=== PATIENT | male | born 1960 | race Caucasian/White ===

== ENCOUNTER 2024-03-19 17:03 | Inpatient (IN) | payer SELFPAY ==
[2024-03-19] VITALS (46 sets, daily range): BP systolic 129–214; BP diastolic 79–122; PULSE 71–95; RESP 16–33; TEMP 36.4–36.8; O2SAT 84–99; BMI 25.4
--- NOTE | 2024-03-19 17:05 | ED_ITS ---
Documented by User: Huber Villareal DO 03/20/24 05:51 HPI - Neuro Symptoms/Deficit 2 General: Chief Complaint: Weakness Stated Complaint: RIGHT SIDED WEAKNESS Time Seen by Provider: 03/19/24 17:04 Source: patient Mode of arrival: EMS History of Present Illness: 63-year-old male presents emergency room via EMS. Right-sided weakness that began suddenly while he was at work. This happened around 2:00 he went home after that called his sister who is a nurse and discussed that she encouraged him to call EMS eventually called EMS and then was brought here from [place]. At the time he arrives initial blood pressure is elevated his initial NIH is 6. He is not on any anticoagulants. Stroke alert was called shortly after he arrived. Patient is a lifelong smoker. Onset (ago): hour(s) Time: 17:03 Last Observed Normal: 14:00 Location: right arm, right leg and ataxia History of same: No Severity: mild Quality: weak, numb and tingling Relieving factors: none Exacerbating factors: none Context: sudden onset On Anticoagulants: No Associated symptoms: Deny chest pain, cough, diaphoresis, fevers/chills, headache(s), anorexia, malaise, nausea, seizures, short of breath, syncope, tingling, vertigo, vomiting or weakness Treatments Prior to Arrival: none Review of Systems 2 Const: Denies: fever(s), chills, malaise or diaphoresis Card: Denies: chest pain or syncope Resp: Denies: dyspnea GI: Denies: nausea or vomiting Skin/Breast: Denies: rash Neuro: Denies: headache(s) or vertigo PFS ED 2 PFSH: Medical History (Updated 03/19/24 @ 18:42 by Evan Batres MD) Hypertension Social History (Updated 03/19/24 @ 18:00 by Huber Villareal DO) Smoking and tobacco/nicotine status: current every day tobacco/nicotine user NIH stroke score 2 NIHSS: Level Of Consciousness - 1a: 0 Level Of Consciousness Questions - 1b: Both Correct Level Of Consciousness Commands - 1c: Both Correct Best Gaze - 2: Normal Visual Thompson - 3: No Visual Loss Facial Palsy - 4: N ormal Motor Arm Right - 5: Drift Motor Arm Left - 5: No Drift Motor Leg Right - 6: Effort Against Ethel Motor Leg Left - 6: No Drift Limb Ataxia - 7: Present In Two Limbs Sensory - 8: Mild To Moderate Loss Best Language - 9: No Aphasia Dysarthia - 10: Normal Extinction And Inattention - 11: 0 Score: Total Score: 6 Physical Exam 2 Const: GENERAL APPEARANCE: cooperative and comfortable O RIENTATION/CONSCIOUSNESS: Yes awake, Yes oriented to person, Yes oriented to place and Yes oriented to time HENMT: COMMON NORMALS: normocephalic, atraumatic and hearing grossly normal bilaterally HEAD & SCALP: normocephalic and atraumatic Resp: COMMON NORMALS: normal respiratory effort, No retractions, No use of accessory muscles and clear to auscultation bilaterally AUSCULTATION: clear to auscultation bilaterally Cardio: COMMON NORMALS: regular rate, regular rhythm and No murmurs present (Cardio) RATE: regular rate RHYTHM: regular rhythm GI: COMMON NORMALS: Soft to palpation and No hepatosplenomegaly present A USCULTATION: Yes normoactive bowel sounds PALPATION: Yes Soft to palpation, No Tenderness to palpation present (GI), No Guarding due to palpation present (GI) and Yes No hepatosplenomegaly present Extremity: COMMON NORMALS: normal to inspection, capillary refill normal, no clubbing, cyanosis or edema, no calf tenderness and no pedal edema Neuro: SENSORIUM/ORIENTATION: Yes oriented to person, Yes oriented to place and Yes oriented to time Skin: COMMON NORMALS: no rashes or lesions noted GENERAL SKIN EXAM: no rashes or lesions noted Course 2 Vital Signs: Vital signs: Vital Signs Temperature 97.6 F 03/20/24 02:50 Pulse Rate 78 03/20/24 04:00 Respiratory Rate 17 03/19/24 22:30 Blood Pressure 144/77 03/20/24 04:00 Pulse Oximetry 94 03/20/24 04:00 Oxygen Delivery Me thod Nasal Cannula 03/20/24 04:00 Oxygen Flow Rate 2 03/20/24 04:00 MDM - Neuro Symptoms/Deficit Medical Decision Making Initial blood pressure elevated blood pressure was 181/86 over upper 90s at the time we gave TNKase. He has an NIH of 6 on arrival. Discussed with Dr. Mansfield via phone CT is read as negative patient does wish to proceed. CTA of the head/neck is pending. Blood pressure increased and was given a single dose of labetalol, at the time given his blood pressure systolic was greater than 105. Care signed out to Dr. Batres at change of shift. See final notes for diagnosis and disposition. Patient presented for strokelike symptoms signed out to me to follow CTA did have some hypertension did treated with labetalol his blood pressure is now 169/95 had some slight improvement in his leg weakness did discuss CT with a neurologist Dr. Mansfield I spoke to the hospitalist and will admit to the ICU here. Medical Records I reviewed the patient's medical records. Lab Data I reviewed the patient's lab results. 03/19/24 17:31 03/19/24 17:[address] 03/19/24 17:11 IMPRESSION: No acute intracranial abnormality. ASSESSMENT: ASPECTS ([place] Stroke Program Early CT Score) is 10. Head/Neck CTA 03/19/24 17:27 IMPRESSION: No acute large vessel occlusion identified. IMPRESSION: 1. No vascular occlusion in the neck. The right vertebral artery has severe stenosis proximally. There is 50% stenosis also seen in the proximal left common carotid artery. 2. There is an 8 mm solid nodule present in the left upper lobe. For patients at low risk (minimal or absent history of smoking and of other known risk factors), recommend CT Chest at 6-12 months, then consider CT Chest at 18-24 months. For patients at high risk (history of smoking or of other known risk factors), recommend CT Chest at 6-12 months, then CT Chest at 18-24 months. (Reference: Sofi) REFERENCES: 1. Sofi Montemayor, et al. Guidelines for Management of Incidental Pulmonary Nodules Detected on CT Images: From the Fleischner Society 2017. Radiology. 2017;284(1):228-243. 2. NASCET CRITERIA. The degree of stenosis in the cervical segment of the internal carotid artery is based on NASCET criteria. Normal is no stenosis. Mild is less than 50% stenosis. Moderate is 50-69% stenosis. Severe is 70% to 99% stenosis. Total occlusion is no detectable patent lumen. Laboratory Results WBC 10.40 10^3/uL (3.29-11.43) 03/19/24 17:31 RBC 5.19 10^6/uL (3.85-5.65) 03/19/24 17:31 Hgb 17.10 g/dL (11.27-16.99) H 03/19/24 17:31 Hct 50.4 % (37-53) 03/19/24 17:31 MCV 97.1 fl (82-101) 03/19/24 17:31 MCH 32.9 pg (27-33) 03/19/24 17:31 MCHC 33.9 g/dL (30-55) 03/19/24 17:31 RDW 13.2 % (12.1-15.1) 03/19/24 17:31 Plt Count 202 10^3/cmm (157-399) 03/19/24 17:31 MPV 10.7 fL (7.4-10.4) H 03/19/24 17:31 Neut % (Auto) 55.6 % 03/19/24 17:31 Lymph % (Auto) 29.7 % 03/19/24 17:31 Teller % (Auto) 10.9 % 03/19/24 17:31 Eos % (Auto) 2.5 % 03/19/24 17:31 Baso % (Auto) 0.7 % 03/19/24 17:31 Neut # (Auto) 5.79 10^3/uL (1.8-7.7) 03/19/24 17:31 Lymph # (Auto) 3.1 10^3/uL (0.8-4.8) 03/19/24 17:31 Teller # (Auto) 1.1 10^3/uL (0.2-0.9) H 03/19/24 17:31 Eos # (Auto) 0.3 10^3/uL (0.0-0.8) 03/19/24 17:31 Baso # (Auto) 0.1 10^3/uL (0.0-0.1) 03/19/24 17:31 Nucleated RBC % (auto) 0 % 03/19/24 17:31 Nucleated RBCs # 0.0 /100WBC 03/19/24 17:31 PT 12.50 SECONDS (12.1-14.9) 03/19/24 17:31 INR 0.91 (0.8-1.2) 03/19/24 17:31 APTT 25.1 SECONDS (23.9-36.7) 03/19/24 17:31 Sodium 136 mmol/L (136-145) 03/19/24 17:56 Potassium 3.7 mmol/L (3.5-5.1) 03/19/24 17:56 Chloride 102 mmol/L (98-107) 03/19/24 17:56 Carbon Dioxide 26 mmol/L (22-29) 03/19/24 17:56 Anion Gap 11.7 (5-19) 03/19/24 17:56 BUN 15 mg/dL (8-23) 03/19/24 17:56 Creatinine 0.5 mg/dL (0.7-1.2) L 03/19/24 17:56 GFR Calculation 167.4 mL/min (90-130) H 03/19/24 17:56 Glucose 161 mg/dL (65-115) H 03/19/24 17:56 POC Glucose 162 mg/dL (70-110) H 03/19/24 17:13 Calculated Osmolality 286 mOsm/kg (285-295) 03/19/24 17:56 Calcium 8.5 mg/dL (8.5-10.5) 03/19/24 17:56 Total Bilirubin 0.5 mg/dL (0.15-1.2) 03/19/24 17:56 AST 12 U/L (0-40) 03/19/24 17:56 ALT 16 U/L (0-41) 03/19/24 17:56 Alkaline Phosphatase 85 U/L (40-130) 03/19/24 17:56 Total Protein 6.7 g/dL (6.6-8.7) 03/19/24 17:56 Albumin 3.8 g/dL (3.5-5.2) 03/19/24 17:56 Globulin 2.9 g/dL (1.3-4.6) 03/19/24 17:56 Procalcitonin 0.05 ng/mL (0-0.5) 03/19/24 17:56 TSH 1.83 uIU/mL (0.27-4.20) 03/19/24 17:56 Urine Color Yellow (Yellow) 03/19/24 18:20 Urine Appearance Clear (CLEAR) 03/19/24 18:20 Urine pH 5 (5-7) 03/19/24 18:20 Ur Specific Ethel 1.015 (1.005-1.030) 03/19/24 18:20 Urine Protein 1+ (Negative) H 03/19/24 18:20 Urine Glucose (UA) 4+ (Normal) H 03/19/24 18:20 Urine Ketones Negative (Negative) 03/19/24 18:20 Urine Blood Neg (Negative) 03/19/24 18:20 Urine Nitrate Positive (Negative) A 03/19/24 18:20 Urine Bilirubin Neg (Negative) 03/19/24 18:20 Urine Urobilinogen Neg mg/dL (Negative) 03/19/24 18:20 Ur Leukocyte Esterase Negative (Negative) 03/19/24 18:20 Urine RBC 0-4 /hpf (0-2) H 03/19/24 18:20 Urine WBC 5-10 /hpf (0-5) H 03/19/24 18:20 Ur Squamous Epith Cells 0-4 /hpf (0-5) H 03/19/24 18:20 Amorphous Sediment Trace /hpf 03/19/24 18:20 Urine Bacteria 1+ /hpf (NONE) H 03/19/24 18:20 Hyaline Casts 0-4 /lpf H 03/19/24 18:20 Urine Mucus Trace /hpf 03/19/24 18:20 Urine Opiates Screen Negative ng/mL (Negative) 03/19/24 18:20 Ur Barbiturates Screen Negative ng/mL (Negative) 03/19/24 18:20 Ur Phencyclidine Scrn Negative ng/mL (Negative) 03/19/24 18:20 Ur Amphetamines Screen Negative ng/mL (Negative) 03/19/24 18:20 U Benzodiazepines Scrn Negative ng/mL (Negative) 03/19/24 18:20 Urine Cocaine Screen Negative ng/mL (Negative) 03/19/24 18:20 U Marijuana (THC) Screen Negative ng/mL (Negative) 03/19/24 18:20 Discharge Plan Discharge Patient Disposition: Admitted As Inpatient Admit Provider: Gurinder Ash Clinical Impression: Acute CVA (cerebrovascular accident) Condition: Stable Coding Level of Care Code ED Lawn Sprinkler Servicer for Chg Fwd Documented by User: Evan Batres MD 03/19/24 18:42 HPI - Neuro Symptoms/Deficit 2 General: Chief Complaint: Weakness Stated Complaint: RIGHT SIDED WEAKNESS Time Seen by Provider: 03/19/24 17:04 PFSH ED 2 PFSH: Medical History (Updated 03/19/24 @ 18:42 by Evan Batres MD) Hypertension Social History (Updated 03/19/24 @ 18:00 by Huber Villareal DO) Smoking and tobacco/nicotine status: current every day tobacco/nicotine user NIH stroke score 2 Score: Total Score: 6 Course 2 Vital Signs: Vital signs: Vital Signs Temperature 97.6 F 03/20/24 02:50 Pulse Rate 78 03/20/24 04:00 Respiratory Rate 17 03/19/24 22:30 Blood Pressure 144/77 03/20/24 04:00 Pulse Oximetry 94 03/20/24 04:00 Oxygen Delivery Me thod Nasal Cannula 03/20/24 04:00 Oxygen Flow Rate 2 03/20/24 04:00 MDM - Neuro Symptoms/Deficit Medical Decision Making Initial blood pressure elevated blood pressure was 18 186 over upper 90s at the time we gave TNKase. He has an NIH of 6 on arrival. Discussed with Dr. Mansfield via phone CT is read as negative patient does wish to proceed. CTA of the head/neck is pending. Care signed out to Dr. Batres at change of shift. See final notes for diagnosis and disposition. Patient presented for strokelike symptoms signed out to me to follow CTA did have some hypertension did treated with labetalol his blood pressure is now 169/95 had some slight improvement in his leg weakness did discuss CT with a neurologist Dr. Mansfield I spoke to the hospitalist and will admit to the ICU here. Lab Data 03/19/24 17:31 03/19/24 17:[address] 03/19/24 17:11 IMPRESSION: No acute intracranial abnormality. ASSESSMENT: ASPECTS ([place] Stroke Program Early CT Score) is 10. Head/Neck CTA 03/19/24 17:27 IMPRESSION: No acute large vessel occlusion identified. IMPRESSION: 1. No vascular occlusion in the neck. The right vertebral artery has severe stenosis proximally. There is 50% stenosis also seen in the proximal left common carotid artery. 2. There is an 8 mm solid nodule present in the left upper lobe. For patients at low risk (minimal or absent history of smoking and of other known risk factors), recommend CT Chest at 6-12 months, then consider CT Chest at 18-24 months. For patients at high risk (history of smoking or of other known risk factors), recommend CT Chest at 6-12 months, then CT Chest at 18-24 months. (Reference: Sofi) REFERENCES: 1. Sofi Montemayor, et al. Guidelines for Management of Incidental Pulmonary Nodules Detected on CT Images: From the Fleischner Society 2017. Radiology. 2017;284(1):228-243. 2. NASCET CRITERIA. The degree of stenosis in the cervical segment of the internal carotid artery is based on NASCET criteria. Normal is no stenosis. Mild is less than 50% stenosis. Moderate is 50-69% stenosis. Severe is 70% to 99% stenosis. Total occlusion is no detectable patent lumen. Laboratory Results WBC 10.40 10^3/uL (3.29-11.43) 03/19/24 17:31 RBC 5.19 10^6/uL (3.85-5.65) 03/19/24 17:31 Hgb 17.10 g/dL (11.27-16.99) H 03/19/24 17:31 Hct 50.4 % (37-53) 03/19/24 17:31 MCV 97.1 fl (82-101) 03/19/24 17:31 MCH 32.9 pg (27-33) 03/19/24 17:31 MCHC 33.9 g/dL (30-55) 03/19/24 17:31 RDW 13.2 % (12.1-15.1) 03/19/24 17:31 Plt Count 202 10^3/cmm (157-399) 03/19/24 17:31 MPV 10.7 fL (7.4-10.4) H 03/19/24 17:31 Neut % (Auto) 55.6 % 03/19/24 17:31 Lymph % (Auto) 29.7 % 03/19/24 17:31 Teller % (Auto) 10.9 % 03/19/24 17:31 Eos % (Auto) 2.5 % 03/19/24 17:31 Baso % (Auto) 0.7 % 03/19/24 17:31 Neut # (Auto) 5.79 10^3/uL (1.8-7.7) 03/19/24 17:31 Lymph # (Auto) 3.1 10^3/uL (0.8-4.8) 03/19/24 17:31 Teller # (Auto) 1.1 10^3/uL (0.2-0.9) H 03/19/24 17:31 Eos # (Auto) 0.3 10^3/uL (0.0-0.8) 03/19/24 17:31 Baso # (Auto) 0.1 10^3/uL (0.0-0.1) 03/19/24 17:31 Nucleated RBC % (auto) 0 % 03/19/24 17:31 Nucleated RBCs # 0.0 /100WBC 03/19/24 17:31 PT 12.50 SECONDS (12.1-14.9) 03/19/24 17:31 INR 0.91 (0.8-1.2) 03/19/24 17:31 APTT 25.1 SECONDS (23.9-36.7) 03/19/24 17:31 Sodium 136 mmol/L (136-145) 03/19/24 17:56 Potassium 3.7 mmol/L (3.5-5.1) 03/19/24 17:56 Chloride 102 mmol/L (98-107) 03/19/24 17:56 Carbon Dioxide 26 mmol/L (22-29) 03/19/24 17:56 Anion Gap 11.7 (5-19) 03/19/24 17:56 BUN 15 mg/dL (8-23) 03/19/24 17:56 Creatinine 0.5 mg/dL (0.7-1.2) L 03/19/24 17:56 GFR Calculation 167.4 mL/min (90-130) H 03/19/24 17:56 Glucose 161 mg/dL (65-115) H 03/19/24 17:56 POC Glucose 162 mg/dL (70-110) H 03/19/24 17:13 Calculated Osmolality 286 mOsm/kg (285-295) 03/19/24 17:56 Calcium 8.5 mg/dL (8.5-10.5) 03/19/24 17:56 Total Bilirubin 0.5 mg/dL (0.15-1.2) 03/19/24 17:56 AST 12 U/L (0-40) 03/19/24 17:56 ALT 16 U/L (0-41) 03/19/24 17:56 Alkaline Phosphatase 85 U/L (40-130) 03/19/24 17:56 Total Protein 6.7 g/dL (6.6-8.7) 03/19/24 17:56 Albumin 3.8 g/dL (3.5-5.2) 03/19/24 17:56 Globulin 2.9 g/dL (1.3-4.6) 03/19/24 17:56 Procalcitonin 0.05 ng/mL (0-0.5) 03/19/24 17:56 TSH 1.83 uIU/mL (0.27-4.20) 03/19/24 17:56 Urine Color Yellow (Yellow) 03/19/24 18:20 Urine Appearance Clear (CLEAR) 03/19/24 18:20 Urine pH 5 (5-7) 03/19/24 18:20 Ur Specific Ethel 1.015 (1.005-1.030) 03/19/24 18:20 Urine Protein 1+ (Negative) H 03/19/24 18:20 Urine Glucose (UA) 4+ (Normal) H 03/19/24 18:20 Urine Ketones Negative (Negative) 03/19/24 18:20 Urine Blood Neg (Negative) 03/19/24 18:20 Urine Nitrate Positive (Negative) A 03/19/24 18:20 Urine Bilirubin Neg (Negative) 03/19/24 18:20 Urine Urobilinogen Neg mg/dL (Negative) 03/19/24 18:20 Ur Leukocyte Esterase Negative (Negative) 03/19/24 18:20 Urine RBC 0-4 /hpf (0-2) H 03/19/24 18:20 Urine WBC 5-10 /hpf (0-5) H 03/19/24 18:20 Ur Squamous Epith Cells 0-4 /hpf (0-5) H 03/19/24 18:20 Amorphous Sediment Trace /hpf 03/19/24 18:20 Urine Bacteria 1+ /hpf (NONE) H 03/19/24 18:20 Hyaline Casts 0-4 /lpf H 03/19/24 18:20 Urine Mucus Trace /hpf 03/19/24 18:20 Urine Opiates Screen Negative ng/mL (Negative) 03/19/24 18:20 Ur Barbiturates Screen Negative ng/mL (Negative) 03/19/24 18:20 Ur Phencyclidine Scrn Negative ng/mL (Negative) 03/19/24 18:20 Ur Amphetamines Screen Negative ng/mL (Negative) 03/19/24 18:20 U Benzodiazepines Scrn Negative ng/mL (Negative) 03/19/24 18:20 Urine Cocaine Screen Negative ng/mL (Negative) 03/19/24 18:20 U Marijuana (THC) Screen Negative ng/mL (Negative) 03/19/24 18:20 All radiology interpretation(s) finalized by discharge Discharge Plan Discharge Patient Disposition: Admitted As Inpatient Admit Provider: Gurinder Ash Clinical Impression: Acute CVA (cerebrovascular accident) Condition: Stable Coding Level of Care Code ED La[employer] Sprink[employer] Servicer for Yoseph Mckeon
--- NOTE | 2024-03-19 17:11 | CTR_ITS ---
PROCEDURE INFORMATION: Exam: CT Head Without Contrast Exam date and time: 03/19/2024 5:10 PM Age: 63 years old Clinical indication: Stroke-like symptoms; Other: RT sided weakness ; Additional info: Symptoms of acute stroke TECHNIQUE: Imaging protocol: Computed tomography of the head without contrast. Radiation optimization: All CT scans at this facility use at least one of these dose optimization techniques: automated exposure control; mA and/or kV adjustment per patient size (includes targeted exams where dose is matched to clinical indication); or iterative reconstruction. Other technique: STROKE PROTOCOL was implemented. COMPARISON: No relevant prior studies available. RADIATION DOSE METRICS: Total DLP (mGy-cm): 1120.08 FINDINGS: Brain: No acute infarct. No hemorrhage. Unremarkable white matter for age. No midline shift. 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 Additional probable chronic lacunar type infarct also noted in the right frontal tovar radiata. Cerebral ventricles: No ventriculomegaly. Paranasal sinuses: No significant inflammation. No fluid levels. Mastoid air cells: No significant inflammation. Bones: No acute fracture. Soft tissues: Unremarkable. CT/CT head thrombolytic [id number] IMPRESSION: No acute intracranial abnormality. ASSESSMENT: ASPECTS ([place] Stroke Program Early CT Score) is 10.
[2024-03-19 17:17] LABS: Glucose Point of Care 162 mg/dL (70-110)
[2024-03-19] MEDS: tenecteplase 50mg Kit (STROKE) 20 MG IVP (17:26)
--- NOTE | 2024-03-19 17:27 | CTR_ITS ---
PROCEDURE INFORMATION: Exam: CTA Head With Contrast, Arteriography Exam date and time: 03/19/2024 5:40 PM Age: 63 years old Clinical indication: Patient HX: Sudden onset RT sided weakness. ; Additional info: Acute CVA TECHNIQUE: Imaging protocol: Computed tomographic angiography of the head with contrast. Exam focused on the arteries. 3D rendering (Not supervised by radiologist): MIP and/or 3D reconstructed images were created by the technologist. Radiation optimization: All CT scans at this facility use at least one of these dose optimization techniques: automated exposure control; mA and/or kV adjustment per patient size (includes targeted exams where dose is matched to clinical indication); or iterative reconstruction. Contrast material: OMNI 350; Contrast volume: 100 ml; Contrast route: INTRAVENOUS (IV); COMPARISON: CT head thrombolytic [id number] 03/19/2024 5:10 PM RADIATION DOSE METRICS: Total DLP (mGy-cm): 493.85 FINDINGS: ANTERIOR CIRCULATION: Right internal carotid artery: Atherosclerotic changes right internal carotid artery with moderate stenosis. Right middle cerebral artery: There is mild stenosis in the M1 segment of the right MCA. Right anterior cerebral artery: No occlusion or significant stenosis. No aneurysm. Left internal carotid artery: Atherosclerotic changes left internal carotid artery with moderate stenosis. Left middle cerebral artery: No occlusion or significant stenosis. No aneurysm. Left anterior cerebral artery: No occlusion or significant stenosis. No aneurysm. POSTERIOR CIRCULATION: Right vertebral artery: No occlusion or significant stenosis. No aneurysm. Left vertebral artery: No occlusion or significant stenosis. No aneurysm. Basilar artery: No occlusion or significant stenosis. No aneurysm. Right posterior cerebral artery: No occlusion or significant stenosis. No aneurysm. Left posterior cerebral artery: The left SNACK STEWARDESS has anatomic variant origin. Brain: No definite mass, mass effect, or midline shift. Cerebral ventricles: No ventriculomegaly. Bones/joints: No acute fracture. Soft tissues: Unremarkable. PROCEDURE INFORMATION: Exam: CTA Neck With Contrast Exam date and time: 03/19/2024 5:40 PM Age: 63 years old Clinical indication: Patient HX: Sudden onset RT sided weakness. ; Additional info: Acute CVA TECHNIQUE: Imaging protocol: Computed tomographic angiography of the neck with contrast. Exam focused on the cervical segments of the vasculature. 3D rendering (Not supervised by radiologist): MIP and/or 3D reconstructed images were created by the technologist. Radiation optimization: All CT scans at this facility use at least one of these dose optimization techniques: automated exposure control; mA and/or kV adjustment per patient size (includes targeted exams where dose is matched to clinical indication); or iterative reconstruction. Contrast material: OMNI 350; Contrast volume: 100 ml; Contrast route: INTRAVENOUS (IV); COMPARISON: CT head thrombolytic [id number] 03/19/2024 5:10 PM RADIATION DOSE METRICS: Total DLP (mGy-cm): 493.85 FINDINGS: Right common carotid artery: There is 30% stenosis of the distal right common carotid artery. Right internal carotid artery: There is 30% stenosis of the proximal right internal carotid artery Right external carotid artery: No visible occlusion. Left common carotid artery: There is 50% stenosis of the proximal left common carotid artery. Left internal carotid artery: The proximal left internal carotid artery has 30% stenosis related to atherosclerotic changes. Left external carotid artery: No visible occlusion. Right vertebral artery: There is severe stenosis of the right vertebral artery at the V1 V2 segment junction. Left vertebral artery: No stenosis. No dissection or occlusion. Left subclavian artery: There is less than 30% stenosis of the proximal left subclavian artery. Aorta: Atherosclerosis thoracic aorta. Soft tissues: No significant soft tissue swelling. Bones/joints: The C6 vertebrae has a mild likely chronic inferior endplate compression deformity. The T2 vertebrae has mild superior endplate height loss which is also likely chronic. Lungs: Marked emphysema in the lung apices. There is an 8 mm solid nodule present in the left upper lobe on series 5, image 56. CT/CT angio headneck* [id number] IMPRESSION: No acute large vessel occlusion identified. IMPRESSION: 1. No vascular occlusion in the neck. The right vertebral artery has severe stenosis proximally. There is 50% stenosis also seen in the proximal left common carotid artery. 2. There is an 8 mm solid nodule present in the left upper lobe. For patients at low risk (minimal or absent history of smoking and of other known risk factors), recommend CT Chest at 6-12 months, then consider CT Chest at 18-24 months. For patients at high risk (history of smoking or of other known risk factors), recommend CT Chest at 6-12 months, then CT Chest at 18-24 months. (Reference: Sofi) REFERENCES: 1. Sofi Montemayor, et al. Guidelines for Management of Incidental Pulmonary Nodules Detected on CT Images: From the Fleischner Society 2017. Radiology. 2017;284(1):228-243. 2. NASCET CRITERIA. The degree of stenosis in the cervical segment of the internal carotid artery is based on NASCET criteria. Normal is no stenosis. Mild is less than 50% stenosis. Moderate is 50-69% stenosis. Severe is 70% to 99% stenosis. Total occlusion is no detectable patent lumen.
[2024-03-19 17:36] LABS: Basophils # 0.1 10^3/uL (0.0-0.1); Basophils % 0.7 %; Eosinophils # 0.3 10^3/uL (0.0-0.8); Eosinophils % 2.5 %; Hematocrit 50.4 % (37-53); Lymphocytes # 3.1 10^3/uL (0.8-4.8); Lymphocytes % 29.7 %; Mean Corpuscular HGB Conc 33.9 g/dL (30-55); Mean Corpuscular Hemoglobin 32.9 pg (27-33); Mean Corpuscular Volume 97.1 fl (82-101); Mean Platelet Volume 10.7 fL (7.4-10.4); Monocytes # 1.1 10^3/uL (0.2-0.9); Monocytes % 10.9 %; Neutrophils # 5.79 10^3/uL (1.8-7.7); Neutrophils % 55.6 %; Nucleated Red Blood Cells % 0 %; Platelet Count 202 10^3/cmm (157-399); Red Blood Count 5.19 10^6/uL (3.85-5.65); Red Cell Distribution Width 13.2 % (12.1-15.1)
[2024-03-19] MEDS: iohexol 350 mg/mL 500 mL Btl (per mL) IV (17:46)
[2024-03-19 17:47] LABS: INR 0.91 (0.8-1.2)
[2024-03-19 17:48] LABS: Partial Thromboplastin Time 25.1 SECONDS (23.9-36.7)
--- NOTE | 2024-03-19 17:58 | ECG_ITS ---
[facility] Test Date: 2024-03-19 Pat Name: Antwan Patel Department: Room: Gender: Male Ethical Hacker: : 1960 Requested By: Huber Blackman Order Number: [id number] Aman MD: Jose Richardson M.D. Measurements Intervals [place] Rate: 82 P: 50 NE: 191 QRS: -28 QRSD: 119 T: -3 QT: 405 QTc: 475 Interpretive Statements SINUS RHYTHM POSSIBLE LEFT VENTRICULAR HYPERTROPHY [VOLTAGE CRITERIA PLUS LAE OR QRS WIDENING] POSSIBLE SEPTAL MYOCARDIAL INFARCTION , OF INDETERMINATE AGE [30 ms Q WAVE IN V1/V2] No previous ECG available for comparison Electronically Signed On 03-19-2024 19:13:17 CDT by Jose Richardson M.D. [id number]
[2024-03-19] MEDS: labetalol 5 mg/mL SDV 20mL 10 MG IVP ×2 (18:09→18:19)
[2024-03-19 18:20] LABS: Alanine Aminotransferase 16 U/L (0-41); Albumin Level 3.8 g/dL (3.5-5.2); Alkaline Phosphatase 85 U/L (40-130); Anion Gap 11.7 (5-19); Aspartate Amino Transferase 12 U/L (0-40); Blood Urea Nitrogen 15 mg/dL (8-23); Calcium 8.5 mg/dL (8.5-10.5); Carbon Dioxide 26 mmol/L (22-29); Chloride 102 mmol/L (98-107); Creatinine Clr Calc Pharmacy 155.4352; Globulin 2.9 g/dL (1.3-4.6); Glomerular Filtration Rate 167.4 mL/min (90-130); Glucose 161 mg/dL (65-115); Osmolality Calculated 286 mOsm/kg (285-295); Potassium 3.7 mmol/L (3.5-5.1); Sodium 136 mmol/L (136-145); Total Bilirubin 0.5 mg/dL (0.15-1.2); Total Protein 6.7 g/dL (6.6-8.7)
[2024-03-19 18:38] LABS: Amphetamines Screen Urine Negative (Negative); Barbiturates Screen Urine Negative (Negative); Benzodiazepines Screen Urine Negative (Negative); Cocaine Screen Urine Negative (Negative); Opiate Screen Urine Negative (Negative); PCP Screen Urine Negative (Negative); THC Screen Urine Negative (Negative)
[2024-03-19 18:51] LABS: Bilirubin Urine Neg (Negative); Blood Urine Neg (Negative); Glucose Urine UA 4+ (Normal); Ketones Urine Negative (Negative); Nitrate Urine Positive (Negative); Protein Urine 1+ (Negative); Specific Gravity, Urine 1.015 (1.005-1.030); Urine Appearance Clear (CLEAR); Urine Color Yellow (Yellow); pH Urine 5 (5-7)
[2024-03-19 18:52] LABS: Add Urine Microscopic? YES; Amorphous Sediment Urine TRACE /hpf; Bacteria Urine 1+ /hpf; Hyaline Casts Urine 0-4 /lpf; Leukocyte Esterase Urine Negative (Negative); Mucus Urine TRACE /hpf; RBC Urine 0-4 /hpf (0-2); Squamous Epithelial Cell Urine 0-4 /hpf (0-5); Urobilinogen Urine Neg (Negative)
[2024-03-19 19:09] LABS: Procalcitonin 0.05 ng/mL (0-0.5)
[2024-03-19] MEDS: nicotine 21 mg Patch 1 PATCH TRANSDERMA (19:19)
[2024-03-19] MEDS: hyDRALAzine 20 mg/mL INJ 1 mL 10 MG IVP (20:03)
[2024-03-19] MEDS: atorvastatin 40 mg Tablet 20 MG PO (21:13)
[2024-03-19] MEDS: pantoprazole 40 mg SDV IVP (21:14)
[2024-03-19] MEDS: labetalol 5 mg/mL SDV 20mL 20 MG IVP (21:14)
[2024-03-19 21:21] LABS: Thyroid Stimulating Hormone 1.83 uIU/mL (0.27-4.20)
--- NOTE | 2024-03-19 22:30 | P.HP_ITS ---
Providers/Chief Complaint 2 Admitting Physician: Gurinder Ash MD Chief Complaint: RIGHT SIDED WEAKNESS History of Present Illness Antwan Patel is a 63 year old male who presented to the emergency room via EMS with right upper and lower extremity weakness that started at around 2 PM. He presented to the emergency room at 5 PM. An NIH stroke scale was estimated at 6. Stroke alert was called and patient received tenecteplase at 5:26 PM. Patient had elevated blood pressures of 180/105 for which she received labetalol push which controlled his blood pressure. He is now being admitted to the ICU for post tenecteplase monitoring. Currently patient has residual right upper and lower extremity weakness, he is alert awake and oriented, able to hold a full conversation. Denies any chest pain dyspnea palpitations syncope prior to onset of symptoms. Review of Systems 2 General: Reports: 10 or more systems reviewed and unremarkable except in HPI and below Const: Denies: fever(s), chills, body aches, change in appetite, change in weight, malaise, night sweats, diaphoresis, change in sleep pattern, daytime sleepiness or snoring Eyes: Denies: change in vision, blurry vision, photophobia, eye discomfort or eye discharge ENMT: Denies: throat pain, enlarged tonsils, hoarseness, mouth pain, oral sores, dry mouth, tinnitus, nasal congestion or post nasal drip Card: Denies: chest pain, palpitations, irregular heart rhythm, edema, swelling of feet/ankles, lightheadedness, syncope, pre-syncope, dyspnea on exertion, orthopnea, leg pain with exertion or acrocyanosis Resp: Denies: dyspnea, productive cough, non-productive cough, wheezing, stridor, pain on inspiration, change in phlegm color, hemoptysis or chest congestion GI: Denies: abdominal pain, nausea, vomiting, hematemesis, coffee ground emesis, dysphagia, heartburn, diarrhea, constipation, bloating, GI cramping, change in bowel habits, pain on defecation, hematochezia or melena : Denies: flank pain, difficulty urinating, dysuria, urinary frequency, urinary urgency, urinary hesitancy, urinary dribbling, difficulty starting urination, change in urine stream, nocturia or hematuria Musc: Denies: neck pain, back pain, extremity pain, joint pain, joint swelling, joint redness, joint stiffness or limited range of motion Neuro: Denies: headache(s), numbness in extremities, weakness in extremities, sensory changes, lack of coordination, difficulty walking, frequent falls, dizziness, vertigo, confusion, Slurred speech present, difficulty communicating thoughts or seizure-like activity Psych: Denies: anxiety, depression, mood swings, panic attacks, hopelessness or irritability Endo: Denies: polyuria, polydipsia, tired all the time, cold intolerance, excessive sweating, flushing or heat intolerance Bam/Lymph: Denies: easy bruising or easy bleeding All/Imm: Denies: tongue swelling, facial swelling or acute wheezing Medications/Allergies Allergies Allergy/AdvReac Type Severity Reaction Status Date / Time No Known Allergies Allergy Verified 03/19/24 20:02 PFSH Acute 2 PFSH: Medical History (Updated 03/19/24 @ 18:42 by Evan Batres MD) Hypertension Social History (Updated 03/19/24 @ 18:00 by Huber Villareal DO) Smoking and tobacco/nicotine status: current every day tobacco/nicotine user Vitals/I&O/Wt Last Vital Signs Temp 97.6 F 03/20/24 05:54 Pulse 77 03/20/24 05:49 Resp 24 H 03/20/24 05:45 BP 178/75 03/20/24 05:45 Pulse Ox 93 03/20/24 05:45 O2 Del Method Nasal Cannula 03/20/24 04:00 O2 Flow Rate 2 03/20/24 04:00 Weight last 48 hrs Weight 75.977 kg Weight 75.977 kg Weight 78.018 kg Physical Exam 2 Narrative: EXAM NARRATIVE: General: No acute distress, AO x3 HEENT: PERRLA, pupils bilaterally equal and reactive Chest:equal good air entry bilaterally CVS: S1-S2 regular, no murmurs, no tachycardia, no gallops, no rubs Abdomen: Soft, nontender, no organomegaly, bowel sounds present Neuro: Left upper and lower extremity motor strength 5 out of 5, unable to lift right lower extremity off the bed, able to form a executive chairman with the right hand though visibly weaker than the left side. Able to lift but has noticeable drift. Data 03/19/24 17:31 03/19/24 17:56 Other Labs: Patient: Antwan Patel Unit #: [id number] : 1960 Age/Sex: 63 / M ADM Date: 03/19/24 Loc: ER Room/Bed: Attending Dr: Ordering Provider/Ordering MD: Huber Villareal DO Date of Service: 03/19/24 Procedure(s): CT head thrombolytic [id number] Accession Number(s): [id number] Report Number: [id number] PROCEDURE INFORMATION: Exam: CT Head Without Contrast Exam date and time: 03/19/2024 5:10 PM Age: 63 years old Clinical indication: Stroke-like symptoms; Other: RT sided weakness ; Additional info: Symptoms of acute stroke TECHNIQUE: Imaging protocol: Computed tomography of the head without contrast. Radiation optimization: All CT scans at this facility use at least one of these dose optimization techniques: automated exposure control; mA and/or kV adjustment per patient size (includes targeted exams where dose is matched to clinical indication); or iterative reconstruction. Other technique: STROKE PROTOCOL was implemented. COMPARISON: No relevant prior studies available. RADIATION DOSE METRICS: Total DLP (mGy-cm): 1120.08 FINDINGS: Brain: No acute infarct. No hemorrhage. Unremarkable white matter for age. No midline shift. 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 Additional probable chronic lacunar type infarct also noted in the right frontal tovar radiata. Cerebral ventricles: No ventriculomegaly. Paranasal sinuses: No significant inflammation. No fluid levels. Mastoid air cells: No significant inflammation. Bones: No acute fracture. Soft tissues: Unremarkable. CT/CT head thrombolytic [id number] IMPRESSION: No acute intracranial abnormality. [address] [address] [address] Scan Report Signed Patient: Antwan Patel Unit #: [id number] : 1960 Age/Sex: 63 / M ADM Date: 03/19/24 Loc: ER Room/Bed: Attending Dr: Ordering Provider/Ordering MD: Huber Villareal DO Date of Service: 03/19/24 Procedure(s): CT angio headneck* [id number] Accession Number(s): [id number] Report Number: [id number] PROCEDURE INFORMATION: Exam: CTA Head With Contrast, Arteriography Exam date and time: 03/19/2024 5:40 PM Age: 63 years old Clinical indication: Patient HX: Sudden onset RT sided weakness. ; Additional info: Acute CVA TECHNIQUE: Imaging protocol: Computed tomographic angiography of the head with contrast. Exam focused on the arteries. 3D rendering (Not supervised by radiologist): MIP and/or 3D reconstructed images were created by the technologist. Radiation optimization: All CT scans at this facility use at least one of these dose optimization techniques: automated exposure control; mA and/or kV adjustment per patient size (includes targeted exams where dose is matched to clinical indication); or iterative reconstruction. Contrast material: OMNI 350; Contrast volume: 100 ml; Contrast route: INTRAVENOUS (IV); COMPARISON: CT head thrombolytic [id number] 03/19/2024 5:10 PM RADIATION DOSE METRICS: Total DLP (mGy-cm): 493.85 FINDINGS: ANTERIOR CIRCULATION: Right internal carotid artery: Atherosclerotic changes right internal carotid artery with moderate stenosis. Right middle cerebral artery: There is mild stenosis in the M1 segment of the right MCA. Right anterior cerebral artery: No occlusion or significant stenosis. No aneurysm. Left internal carotid artery: Atherosclerotic changes left internal carotid artery with moderate stenosis. Left middle cerebral artery: No occlusion or significant stenosis. No aneurysm. Left anterior cerebral artery: No occlusion or significant stenosis. No aneurysm. POSTERIOR CIRCULATION: Right vertebral artery: No occlusion or significant stenosis. No aneurysm. Left vertebral artery: No occlusion or significant stenosis. No aneurysm. Basilar artery: No occlusion or significant stenosis. No aneurysm. Right posterior cerebral artery: No occlusion or significant stenosis. No aneurysm. Left posterior cerebral artery: The left DATER ASSEMBLER has anatomic variant origin. Brain: No definite mass, mass effect, or midline shift. Cerebral ventricles: No ventriculomegaly. Bones/joints: No acute fracture. Soft tissues: Unremarkable. PROCEDURE INFORMATION: Exam: CTA Neck With Contrast Exam date and time: 03/19/2024 5:40 PM Age: 63 years old Clinical indication: Patient HX: Sudden onset RT sided weakness. ; Additional info: Acute CVA TECHNIQUE: Imaging protocol: Computed tomographic angiography of the neck with contrast. Exam focused on the cervical segments of the vasculature. 3D rendering (Not supervised by radiologist): MIP and/or 3D reconstructed images were created by the technologist. Radiation optimization: All CT scans at this facility use at least one of these dose optimization techniques: automated exposure control; mA and/or kV adjustment per patient size (includes targeted exams where dose is matched to clinical indication); or iterative reconstruction. Contrast material: OMNI 350; Contrast volume: 100 ml; Contrast route: INTRAVENOUS (IV); COMPARISON: CT head thrombolytic [id number] 03/19/2024 5:10 PM RADIATION DOSE METRICS: Total DLP (mGy-cm): 493.85 FINDINGS: Right common carotid artery: There is 30% stenosis of the distal right common carotid artery. Right internal carotid artery: There is 30% stenosis of the proximal right internal carotid artery Right external carotid artery: No visible occlusion. Left common carotid artery: There is 50% stenosis of the proximal left common carotid artery. Left internal carotid artery: The proximal left internal carotid artery has 30% stenosis related to atherosclerotic changes. Left external carotid artery: No visible occlusion. Right vertebral artery: There is severe stenosis of the right vertebral artery at the V1 V2 segment junction. Left vertebral artery: No stenosis. No dissection or occlusion. Left subclavian artery: There is less than 30% stenosis of the proximal left subclavian artery. Aorta: Atherosclerosis thoracic aorta. Soft tissues: No significant soft tissue swelling. Bones/joints: The C6 vertebrae has a mild likely chronic inferior endplate compression deformity. The T2 vertebrae has mild superior endplate height loss which is also likely chronic. Lungs: Marked emphysema in the lung apices. There is an 8 mm solid nodule present in the left upper lobe on series 5, image 56. CT/CT angio headneck* [id number] IMPRESSION: No acute large vessel occlusion identified. IMPRESSION: 1. No vascular occlusion in the neck. The right vertebral artery has severe stenosis proximally. There is 50% stenosis also seen in the proximal left common carotid artery. 2. There is an 8 mm solid nodule present in the left upper lobe. For patients at low risk (minimal or absent history of smoking and of other known risk factors), recommend CT Chest at 6-12 months, then consider CT Chest at 18-24 months. For patients at high risk (history of smoking or of other known risk factors), recommend CT Chest at 6-12 months, then CT Chest at 18-24 months. (Reference: Sofi) A&P Assessment and plan (1) Acute CVA (cerebrovascular accident): Admit the patient to ICU for close neuro monitoring Received TNKase at 5: 26pm telemetry monitoring on the unit to evaluate for underlying arrhythmias. CT head unremarkable CTA head and neck without any major vessel occlusion. Echocardiogram ordered and pending aspirin 81 mg daily to be started after 24 hrs Atorvastatin 40 mg daily Maintain BP less than 180/100 PT OT speech therapy assessment (2) Hypertension: Maintain BP < 180/105 prn labetalol and hydralazine ordered Attestations 2 Medical Necessity Statement*: > 2 midnight Admission is anticipated Critical Care Time: The high probability of a clinically significant, sudden or life threatening deterioration of the patient's [neuro, cardiovascular] system(s) required my full and direct attention, intervention and personal management. The critical care time is as shown. This time is in addition to time spent performing any reported procedures but includes the following: [x] Data and vital sign review and interpretation [x] Patient assessment, examination and intervention [x] Documentation [x] Medication orders and management Critical Care Time (min): 50 Coding Level of Care Code Acute Code for Chg Fwd Diagnoses Acute CVA (cerebrovascular accident) I63.9 Hypertension I10
[2024-03-20] VITALS (90 sets, daily range): BP systolic 123–185; BP diastolic 64–100; PULSE 65–106; RESP 13–29; TEMP 36.4–36.8; O2SAT 87–95; BMI 25.4
--- NOTE | 2024-03-20 06:00 | USCV_ITS ---
Antwan Patel Age: 63 Gender: M : 1960 Exam Date: 03/20/2024 08:09 Ordering Phys: Gurinder Ash MD Technologist: Patrice Lamb [place]am [place] [facility] [place]: stroke BP: 165 / 86 HR: 73 Rhythm: Sinus Technical Quality: Adequate MEASUREMENTS (Male / Female) Normal Values 2D ECHO LV Diastolic Diameter PLAX 3.2 cm 4.2 - 5.9 / 3.9 - 5.3 cm IVS Diastolic Thickness 1.0 cm 0.6 - 1.0 / 0.6 - 0.9 cm IVS Systolic Thickness 1.4 cm LVPW Diastolic Thickness 1.4 cm 0.6 - 1.0 / 0.6 - 0.9 cm LVPW Systolic Thickness 2.3 cm LVOT Diameter 2.1 cm LV Ejection Fraction 2D Teich 59.2 % LV Ejection Fraction MOD 2C 50.9 % LV Ejection Fraction 2C AL 51.7 % LA Diameter 3.3 cm RA Systolic Volume 4C AL 32.5 ml RA Systolic Volume 4C MOD 31.9 ml LA Sys Volume AL 49.0 cm cubed LA Sys Volume Index AL 25.6 cm cubed/m squared Aorta at Sinotubular Diameter 2.3 cm IVC Diameter 1.9 cm M-MODE LA Ao Ratio MM 1.1 AV Cusp Separation MM 1.6 cm DOPPLER AV Peak Velocity 155.0 cm/s LVOT Peak Velocity 75.0 cm/s AV Area Cont Eq vti 1.5 cm squared AV Area Cont Eq pk 1.7 cm squared MV Peak Velocity 85.0 cm/s MV Area PHT 4.7 cm squared Mitral E to A Ratio 0.6 TV Peak Velocity 115.0 cm/s TR Peak Velocity 145.0 cm/s TR Peak Gradient 8.4 mmHg TR Mean Velocity 94.0 cm/s TR Mean Gradient 4.5 mmHg TR Velocity Time Integral 31.3 cm PV Peak Velocity 106.0 cm/s RV Ejection Time 0.3 s FINDINGS Left Ventricle Mild to moderate concentric left ventricular hypertrophy. Borderline low LV ejection fraction of 51%.Grade I/IV diastolic dysfunction (abnormal relaxation filling pattern), normal to mildly elevated filling pressures. Right Ventricle The right ventricle is normal in size and function. Right Atrium The right atrium is normal in size. Left Atrium The left atrium is normal in size. Mitral Valve Trace mitral valve regurgitation. Aortic Valve No gross abnormalities noted Tricuspid Valve Trace tricuspid valve regurgitation. Pulmonic Valve No gross abnormalities noted Pericardium No pericardial effusion. Aorta Normal ascending aorta dimension. IVC The inferior vena cava appears normal. CONCLUSIONS Mild to moderate concentric left ventricular hypertrophy. Borderline low LV ejection fraction of 51%.Grade I/IV diastolic dysfunction (abnormal relaxation filling pattern), normal to mildly elevated filling pressures. Trace mitral valve regurgitation. Trace tricuspid valve regurgitation. Estimated pulmonary artery peak systolic pressure, probably within normal limits There is no pericardial effusion. There are no intracardiac masses. No similar previous studies are available for comparison Dr Jose Richardson MD [facility] (Electronically Signed) Final Date: 20 March 2024 09:12 S
[2024-03-20] MEDS: nicotine 21 mg Patch 1 PATCH TRANSDERMA (08:51)
[2024-03-20] MEDS: losartan 50 mg Tablet 25 MG PO ×2 (10:51→16:42)
[2024-03-20 11:11] LABS: Basophils % 0.3 %; Eosinophils # 0.2 10^3/uL (0.0-0.8); Hematocrit 48.5 % (37-53); Lymphocytes # 1.9 10^3/uL (0.8-4.8); Lymphocytes % 18.6 %; Mean Corpuscular HGB Conc 33.4 g/dL (30-55); Mean Corpuscular Hemoglobin 32.3 pg (27-33); Mean Corpuscular Volume 96.8 fl (82-101); Mean Platelet Volume 10.6 fL (7.4-10.4); Monocytes # 0.8 10^3/uL (0.2-0.9); Monocytes % 7.6 %; Neutrophils % 71.1 %; Nucleated Red Blood Cells % 0 %; Platelet Count 194 10^3/cmm (157-399); Red Blood Count 5.01 10^6/uL (3.85-5.65); Red Cell Distribution Width 13.5 % (12.1-15.1); White Blood Count 9.99 10^3/uL (3.29-11.43)
[2024-03-20 11:29] LABS: Alanine Aminotransferase 15 U/L (0-41); Albumin Level 3.8 g/dL (3.5-5.2); Alkaline Phosphatase 91 U/L (40-130); Anion Gap 15.1 (5-19); Aspartate Amino Transferase 14 U/L (0-40); Blood Urea Nitrogen 11 mg/dL (8-23); Calcium 8.7 mg/dL (8.5-10.5); Carbon Dioxide 24 mmol/L (22-29); Chloride 101 mmol/L (98-107); Chol HDL Ratio 4.51 mg/dL (1.0-5.00); Cholesterol 221 mg/dL (0-200); Globulin 2.7 g/dL (1.3-4.6); Glomerular Filtration Rate 167.4 mL/min (90-130); Glucose 250 mg/dL (65-115); HDL Cholesterol 49 mg/dL (60-100); LDL Cholesterol Calculated 151 mg/dL (50-129); LDL HDL Ratio 3.08 RATIO (0.00-3.22); Magnesium 1.9 mg/dL (1.7-2.3); Osmolality Calculated 290 mOsm/kg (285-295); Phosphorus 3.2 mg/dL (2.5-4.5); Potassium 4.1 mmol/L (3.5-5.1); Sodium 136 mmol/L (136-145); Total Bilirubin 0.7 mg/dL (0.15-1.2); Total Protein 6.5 g/dL (6.6-8.7); Triglycerides 105 mg/dL (0-150)
[2024-03-20 11:33] LABS: Estmated Average Glucose 226; Hemoglobin A1C 9.5 % (4.0-6.0)
[2024-03-20 11:34] LABS: Creatinine Clr Calc Pharmacy 150.7984
--- NOTE | 2024-03-20 13:32 | P.PN_ITS ---
Subjective 2 Subjective: No acute events overnight. Denies any new complaints. Continues to feel weak. Still having residual deficits on the right side. Denies any nausea, vomiting, headache. Blood pressure is elevated but better than yesterday. Had not received any further doses of hydralazine. Vitals/I&O/Wt Last Vital Signs Temp 97.6 F 03/20/24 05:54 Pulse 71 03/20/24 12:00 Resp 17 03/20/24 12:00 BP 144/75 03/20/24 12:00 Pulse Ox 94 03/20/24 12:00 O2 Del Method Nasal Cannula 03/20/24 04:00 O2 Flow Rate 2 03/20/24 04:00 03/19/24 03/20/24 03/20/24 22:59 06:59 14:59 Intake Total 240 / 240 Balance 240 / 240 Weight last 48 hrs Weight 75.977 kg Weight 75.977 kg Weight 78.018 kg Physical Exam 2 Narrative: EXAM NARRATIVE: General: No acute distress, AO x3 HEENT: PERRLA, pupils bilaterally equal and reactive Chest:equal good air entry bilaterally CVS: S1-S2 regular, no murmurs, no tachycardia, no gallops, no rubs Abdomen: Soft, nontender, no organomegaly, bowel sounds present Neuro: Left upper and lower extremity motor strength 5 out of 5, unable to lift right lower extremity off the bed, able to form a calliope player with the right hand though visibly weaker than the left side. Able to lift but has noticeable drift. Data 03/20/24 10:53 03/20/24 10:53 A&P Assessment and plan (1) Acute CVA (cerebrovascular accident): Post tenecteplase. Repeat CT head 24 hours after the hospital stay. Appreciate echocardiogram, CT and CTA head and neck results. PT/OT/speech therapy evaluation once available. Currently tolerating clear liquid diet. Advance once evaluated by speech therapy. Appreciate A1c, lipid panel. Continue aspirin 81 mg daily, atorvastatin 40 mg daily. Goal blood pressure less than 140/90 mmHg now. (2) Hypertension: Known history. Patient is noncompliant. Does not follow-up with a primary care provider. Goal blood pressure less than 140/90 mmHg. Start on losartan 25 mg oral daily. Uptitrate as for goal blood pressure. Plan Type 2 diabetes mellitus: A1c of more than 9. Not a known history of diabetes. Started on insulin sliding scale. Patient will need to be discharged on oral hypoglycemics. Carb consistent clear liquid diet Protonix OPD prophylaxis SCDs for DVT prophylaxis. Not on medical prophylaxis given tenecteplase within next 24 hours. Attestations 2 Medical Necessity Statement*: Requires further hospitalization for management of CVA post tenecteplase care while safe discharge planning is sought. Diagnoses Acute CVA (cerebrovascular accident) I63.9 Hypertension I10
[2024-03-20] MEDS: hyDRALAzine 20 mg/mL INJ 1 mL 10 MG IVP ×2 (15:21→21:21)
[2024-03-20] MEDS: insulin lispro 100 unit/1 mL SUBCUT (16:53)
[2024-03-20 16:54] LABS: Glucose Point of Care 204 mg/dL (70-110)
--- NOTE | 2024-03-20 17:00 | CTR_ITS ---
PROCEDURE INFORMATION: Exam: CT Head Without Contrast Exam date and time: 03/20/2024 5:10 PM Age: 63 years old Clinical indication: Other: Post tpa TECHNIQUE: Imaging protocol: Computed tomography of the head without contrast. Radiation optimization: All CT scans at this facility use at least one of these dose optimization techniques: automated exposure control; mA and/or kV adjustment per patient size (includes targeted exams where dose is matched to clinical indication); or iterative reconstruction. COMPARISON: CT angio headneck* [id number] 03/19/2024 5:40 PM RADIATION DOSE METRICS: Total DLP (mGy-cm): 1151.39 FINDINGS: Brain: There is mild cerebral atrophy. There are mild deep white matter microangiopathic ischemic changes. No acute hemorrhage is identified. No mass or mass effect is identified. Chronic appearing bilateral basal ganglia infarcts. Questionable increasing hypodensity in the posterior internal capsule on the left may represent subacute infarct. Cerebral ventricles: The ventricles are prominent secondary to atrophy. Paranasal sinuses: The paranasal sinuses are clear. Mastoid air cells: Stable increased sclerosis and decreased pneumatization of the left inferior mastoid air cells likely reflecting chronic mastoiditis. No evidence of fluid in the mastoid air cells. Bones: No acute osseous abnormalities are seen. Soft tissues: The soft tissues are within normal limits. Other findings: . CT/CT head wo con* [id number] IMPRESSION: 1. Questionable increasing hypodensity in the posterior internal capsule on the left may represent subacute infarct. Recommend correlation with MRI. 2. No other evidence of acute intracranial pathology. 3. Senescent changes.
[2024-03-20] MEDS: pantoprazole 40 mg SDV IVP (20:27)
[2024-03-20] MEDS: atorvastatin 40 mg Tablet PO (20:27)
[2024-03-20] MEDS: morphine 4 mg/mL SDV 1 mL 2 MG IVP (21:21)
[2024-03-21] VITALS (53 sets, daily range): BP systolic 110–196; BP diastolic 62–125; PULSE 70–107; RESP 11–33; TEMP 36.4–37.1; O2SAT 88–96; BMI 25.4
[2024-03-21 05:01] LABS: Basophils % 0.3 %; Eosinophils # 0.2 10^3/uL (0.0-0.8); Eosinophils % 2.1 %; Hematocrit 49.6 % (37-53); Lymphocytes # 2.1 10^3/uL (0.8-4.8); Mean Corpuscular HGB Conc 33.3 g/dL (30-55); Mean Corpuscular Hemoglobin 32.5 pg (27-33); Mean Corpuscular Volume 97.6 fl (82-101); Mean Platelet Volume 10.8 fL (7.4-10.4); Monocytes # 0.9 10^3/uL (0.2-0.9); Monocytes % 8.7 %; Neutrophils # 6.64 10^3/uL (1.8-7.7); Neutrophils % 67.6 %; Nucleated Red Blood Cells % 0 %; Platelet Count 182 10^3/cmm (157-399); Red Blood Count 5.08 10^6/uL (3.85-5.65); Red Cell Distribution Width 13.4 % (12.1-15.1); White Blood Count 9.82 10^3/uL (3.29-11.43)
[2024-03-21 05:22] LABS: Alanine Aminotransferase 13 U/L (0-41); Albumin Level 3.7 g/dL (3.5-5.2); Alkaline Phosphatase 91 U/L (40-130); Aspartate Amino Transferase 15 U/L (0-40); Blood Urea Nitrogen 11 mg/dL (8-23); Calcium 8.7 mg/dL (8.5-10.5); Carbon Dioxide 25 mmol/L (22-29); Chloride 102 mmol/L (98-107); Creatinine Clr Calc Pharmacy 188.4979; Globulin 2.9 g/dL (1.3-4.6); Glomerular Filtration Rate 216.6 mL/min (90-130); Glucose 208 mg/dL (65-115); Osmolality Calculated 287 mOsm/kg (285-295); Sodium 136 mmol/L (136-145); Total Bilirubin 0.7 mg/dL (0.15-1.2); Total Protein 6.6 g/dL (6.6-8.7)
[2024-03-21 08:16] LABS: Glucose Point of Care 209 mg/dL (70-110)
[2024-03-21] MEDS: aspirin 81 mg EC Tablet PO (08:20)
[2024-03-21] MEDS: losartan 50 mg Tablet PO (08:20)
[2024-03-21] MEDS: nicotine 21 mg Patch 1 PATCH TRANSDERMA (08:21)
[2024-03-21] MEDS: insulin lispro 100 unit/1 mL SUBCUT ×3 (08:21→20:56)
[2024-03-21 11:42] LABS: Glucose Point of Care 226 mg/dL (70-110)
[2024-03-21 13:32] LABS: Glucose Point of Care 280 mg/dL (70-110)
--- NOTE | 2024-03-21 15:31 | P.PN_ITS ---
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, so he plans on going home he tells me his can help take care of him, but he has not gotten up out of bed as of yet Vitals/I&O/Wt Last Vital Signs Temp 98.4 F 03/21/24 12:00 Pulse 91 03/21/24 14:00 Resp 25 H 03/21/24 14:00 BP 163/80 03/21/24 14:00 Pulse Ox 92 03/21/24 14:00 O2 Del Method Nasal Cannula 03/21/24 08:52 O2 Flow Rate 2 03/21/24 08:52 03/21/24 03/21/24 03/21/24 06:59 14:59 22:59 Intake Total 470 / 470 Output Total 600 / 950 500 / 500 Balance -600 / 190 -30 / -30 Weight last 48 hrs Weight 75.977 kg Weight 75.977 kg Weight 75.977 kg Weight 78.018 kg Physical Exam 2 Const: COMMON NORMALS: no acute distress and patient oriented x3 Resp: COMMON NORMALS: normal respiratory effort, No retractions, No use of accessory muscles and clear to auscultation bilaterally AUSCULTATION: clear to auscultation bilaterally Cardio: COMMON NORMALS: regular rate, regular rhythm, S1 normal heart sound present and S2 normal heart sound present RATE: regular rate RHYTHM: r egular rhythm HEART SOUNDS: S1 normal heart sound present and S2 normal heart sound present GI: COMMON NORMALS: Normal to inspection, nondistended, normoactive bowel sounds present and non-tender Extremity: COMMON NORMALS: no pedal edema Neuro: COMMON NORMALS: patient oriented x3 OTHER: Right upper and right lower extremity weakness Psych: COMMON NORMALS: mental status grossly normal Data 03/21/24 04:27 03/21/24 04:27 A&P Assessment and plan (1) Acute CVA (cerebrovascular accident): Post tenecteplase. Repeat CT head CT/CT head wo con* [id number] IMPRESSION: 1. Questionable increasing hypodensity in the posterior internal capsule on the left may represent subacute infarct. Recommend correlation with MRI. 2. No other evidence of acute intracranial pathology. 3. Senescent change echocardiogram CONCLUSIONS Mild to moderate concentric left ventricular hypertrophy. Borderline low LV ejection fraction of 51%.Grade I/IV diastolic dysfunction (abnormal relaxation filling pattern), normal to mildly elevated filling pressures. Trace mitral valve regurgitation. Trace tricuspid valve regurgitation. Estimated pulmonary artery peak systolic pressure, probably within normal limits There is no pericardial effusion. There are no intracardiac masses CTA head and neck IMPRESSION: 1. No vascular occlusion in the neck. The right vertebral artery has severe stenosis proximally. There is 50% stenosis also seen in the proximal left common carotid artery. 2. There is an 8 mm solid nodule present in the left upper lobe. For patients at low risk (minimal or absent history of smoking and of other known risk factors), recommend CT Chest at 6-12 months, then consider CT Chest at 18-24 months. For patients at high risk (history of smoking or of other known risk factors), recommend CT Chest at 6-12 months, then CT Chest at 18-24 months. (Reference: Sofi) PT/OT/speech therapy evaluation once available. Currently tolerating clear liquid diet. Advance once evaluated by speech therapy. Will perform MRI of the brain today Continue aspirin 81 mg daily, atorvastatin 40 mg daily. Goal blood pressure less than 140/90 mmHg now. (2) Hypertension: Continue losartan add Norvasc (3) Type 2 diabetes mellitus: Plan Type 2 diabetes mellitus: A1c of more than 9. Not a known history of diabetes. Started on insulin sliding scale. Patient will need to be discharged on oral hypoglycemics. Diabetic education Pulmonary nodule, will need to follow-up with pulmonary as outpatient Carb consistent clear liquid diet Protonix OPD prophylaxis SCDs for DVT prophylaxis. Plan for today, add Norvasc, blood pressure control, PT OT, monitor heart rate, MRI of the brain, blood sugar control, continues to have residual right-sided deficits Attestations 2 Medical Necessity Statement*: Patient requires hospitalization for acute CVA with residual right-sided deficits, status post tPA, requiring inpatient monitoring, Diagnoses Acute CVA (cerebrovascular accident) I63.9 Hypertension I10 Type 2 diabetes mellitus E11.9
[2024-03-21 16:58] LABS: Glucose Point of Care 92 mg/dL (70-110)
[2024-03-21] MEDS: amlodipine 10 mg Tablet PO (17:05)
[2024-03-21 20:22] LABS: Glucose Point of Care 229 mg/dL (70-110)
[2024-03-21] MEDS: atorvastatin 40 mg Tablet PO (20:56)
[2024-03-21] MEDS: enoxaparin 40 mg/0.4 mL Syringe SUBCUT (20:56)
[2024-03-21] MEDS: pantoprazole 40 mg SDV IVP (20:56)
[2024-03-21] MEDS: morphine 4 mg/mL SDV 1 mL 2 MG IVP (21:00)
[2024-03-22] VITALS (11 sets, daily range): BP systolic 107–183; BP diastolic 63–83; PULSE 67–91; RESP 18–19; TEMP 36.1–37.1; O2SAT 90–94
[2024-03-22] MEDS: morphine 4 mg/mL SDV 1 mL 2 MG IVP ×2 (02:46→22:39)
[2024-03-22 05:57] LABS: Basophils % 0.4 %; Eosinophils # 0.2 10^3/uL (0.0-0.8); Eosinophils % 2.5 %; Hematocrit 48.4 % (37-53); Lymphocytes # 2.3 10^3/uL (0.8-4.8); Lymphocytes % 25.1 %; Mean Corpuscular HGB Conc 33.5 g/dL (30-55); Mean Corpuscular Hemoglobin 32.5 pg (27-33); Mean Platelet Volume 10.6 fL (7.4-10.4); Monocytes # 0.9 10^3/uL (0.2-0.9); Monocytes % 9.2 %; Neutrophils % 62.4 %; Nucleated Red Blood Cells % 0 %; Platelet Count 184 10^3/cmm (157-399); Red Blood Count 4.99 10^6/uL (3.85-5.65); Red Cell Distribution Width 13.4 % (12.1-15.1); White Blood Count 9.31 10^3/uL (3.29-11.43)
[2024-03-22 06:17] LABS: Alanine Aminotransferase 15 U/L (0-41); Albumin Level 3.6 g/dL (3.5-5.2); Alkaline Phosphatase 92 U/L (40-130); Aspartate Amino Transferase 15 U/L (0-40); Blood Urea Nitrogen 15 mg/dL (8-23); Calcium 8.7 mg/dL (8.5-10.5); Carbon Dioxide 24 mmol/L (22-29); Chloride 105 mmol/L (98-107); Creatinine Clr Calc Pharmacy 150.7984; Globulin 2.9 g/dL (1.3-4.6); Glomerular Filtration Rate 167.4 mL/min (90-130); Glucose 176 mg/dL (65-115); Osmolality Calculated 293 mOsm/kg (285-295); Sodium 139 mmol/L (136-145); Total Bilirubin 0.7 mg/dL (0.15-1.2); Total Protein 6.5 g/dL (6.6-8.7)
[2024-03-22 06:37] LABS: Glucose Point of Care 168 mg/dL (70-110)
[2024-03-22] MEDS: aspirin 81 mg EC Tablet PO (08:57)
[2024-03-22] MEDS: amlodipine 10 mg Tablet PO (08:57)
[2024-03-22] MEDS: nicotine 21 mg Patch 1 PATCH TRANSDERMA (08:57)
[2024-03-22] MEDS: losartan 50 mg Tablet PO (08:57)
[2024-03-22] MEDS: insulin lispro 100 unit/1 mL SUBCUT ×4 (08:58→21:42)
--- NOTE | 2024-03-22 10:41 | MR_ITS ---
WS: [id number] MRI HEAD WITHOUT CONTRAST TECHNIQUE: Sagittal T1, T2 axial, T2 axial FLAIR, axial and coronal T1 images, axial susceptibility w eighted imaging, axial diffusion weighted images, and coronal T2 images were obtained. CLINICAL INFORMATION: cva, s/p tnkase, right sided weakness COMPARISON: CT 03/20/2024 FINDINGS: Susceptibility artifact over the RIGHT hemisphere due to scalp shrapnel near the right ear. Small area of restricted diffusion involving the posterior limb LEFT internal capsule corresponding t o the prior CT findings compatible with acute ischemia measuring 12.3 x 6.7 mm. Small amount of assoc iated edema. No significant mass effect or midline shift. No hemosiderin in this area. No other foci of restricted diffusion. Mild small vessel changes. Moderate parenchymal volume loss. Several small chronic lacunar infarcts i n the periventricular white matter, RIGHT caudate, and RIGHT basal ganglia. Normal posterior fossa. N ormal vascular flow voids at the skull base. No extra-axial fluid collections. Paranasal sinuses are well aerated. Normal posterior nasopharynx. Normal optic chiasm and pituitary infundibulum. Moderate symmetric atrophy temporal lobes and hippoca mpal formations. MR/MR head wo con* [id number] IMPRESSION: 1. Small area of acute ischemia in the posterior limb LEFT internal capsule me asuring 12.3 x 6.7 mm corresponding to the CT findings. Associated T2 hyperinte nsity. 2. No significant mass effect. No hemorrhage. 3. No other acute findings. Notified Bernard Hurd MD at 03/22/2024 11:23 AM.
[2024-03-22 11:27] LABS: Glucose Point of Care 183 mg/dL (70-110)
--- NOTE | 2024-03-22 14:27 | P.PN_ITS ---
Subjective 2 Subjective: Patient was seen this morning, continues to have right upper and right lower extremity weakness, no nausea, no vomiting, no dysphagia reported no visual deficits Vitals/I&O/Wt Last Vital Signs Temp 97.4 F L 03/22/24 12:12 Pulse 90 03/22/24 12:12 Resp 18 03/22/24 12:12 BP 155/77 03/22/24 12:12 Pulse Ox 90 03/22/24 12:12 O2 Del Method Nasal Cannula 03/22/24 08:41 O2 Flow Rate 2 03/21/24 08:52 03/21/24 03/22/24 03/22/24 22:59 06:59 14:59 Intake Total 540 / 1010 400 / 1410 840 / 840 Output Total 400 / 900 Balance 540 / 510 0 / 510 840 / 840 Weight last 48 hrs Weight 75.977 kg Physical Exam 2 Const: COMMON NORMALS: no acute distress and patient oriented x3 Resp: COMMON NORMALS: normal respiratory effort, No retractions, No use of accessory muscles and clear to auscultation bilaterally AUSCULTATION: clear to auscultation bilaterally Cardio: COMMON NORMALS: regular rate, regular rhythm, S1 normal heart sound present and S2 normal heart sound present RATE: regular rate RHYTHM: r egular rhythm HEART SOUNDS: S1 normal heart sound present and S2 normal heart sound present GI: COMMON NORMALS: Normal to inspection, nondistended, normoactive bowel sounds present and non-tender Extremity: COMMON NORMALS: no pedal edema Neuro: COMMON NORMALS: patient oriented x3 Psych: COMMON NORMALS: mental status grossly normal Data 03/22/24 05:43 03/22/24 05:43 A&P Assessment and plan (1) Acute CVA (cerebrovascular accident): Post tenecteplase. Repeat CT head CT/CT head wo con* [id number] IMPRESSION: 1. Questionable increasing hypodensity in the posterior internal capsule on the left may represent subacute infarct. Recommend correlation with MRI. 2. No other evidence of acute intracranial pathology. 3. Senescent change echocardiogram CONCLUSIONS Mild to moderate concentric left ventricular hypertrophy. Borderline low LV ejection fraction of 51%.Grade I/IV diastolic dysfunction (abnormal relaxation filling pattern), normal to mildly elevated filling pressures. Trace mitral valve regurgitation. Trace tricuspid valve regurgitation. Estimated pulmonary artery peak systolic pressure, probably within normal limits There is no pericardial effusion. There are no intracardiac masses CTA head and neck IMPRESSION: 1. No vascular occlusion in the neck. The right vertebral artery has severe stenosis proximally. There is 50% stenosis also seen in the proximal left common carotid artery. 2. There is an 8 mm solid nodule present in the left upper lobe. For patients at low risk (minimal or absent history of smoking and of other known risk factors), recommend CT Chest at 6-12 months, then consider CT Chest at 18-24 months. For patients at high risk (history of smoking or of other known risk factors), recommend CT Chest at 6-12 months, then CT Chest at 18-24 months. (Reference: [facility]) MRI brain 1. Small area of acute ischemia in the posterior limb LEFT internal capsule measuring 12.3 x 6.7 mm corresponding to the CT findings. Associated T2 hyperintensity. 2. No significant mass effect. No hemorrhage. 3. No other acute findings. PT/OT/speech therapy evaluation once available. Currently tolerating clear liquid diet. Advance once evaluated by speech therapy. Continue aspirin 81 mg daily, atorvastatin 40 mg daily. Goal blood pressure less than 140/90 mmHg now. (2) Hypertension: Continue losartan add Norvasc (3) Type 2 diabetes mellitus: Plan Type 2 diabetes mellitus: A1c of more than 9. Not a known history of diabetes. Started on insulin sliding scale. Patient will need to be discharged on oral hypoglycemics. Diabetic education Pulmonary nodule, will need to follow-up with pulmonary as outpatient Carb consistent clear liquid diet Protonix OPD prophylaxis SCDs for DVT prophylaxis. Plan for today, PT OT, blood pressure control Attestations 2 Medical Necessity Statement*: Patient requires hospitalization for acute CVA right-sided deficits Diagnoses Acute CVA (cerebrovascular accident) I63.9 Hypertension I10 Type 2 diabetes mellitus E11.9
[2024-03-22] MEDS: cyclobenzaprine 10 mg Tablet 5 MG PO ×2 (16:48→21:51)
[2024-03-22] MEDS: nicotine 14 mg Patch 1 PATCH TRANSDERMA (16:48)
[2024-03-22 17:06] LABS: Glucose Point of Care 173 mg/dL (70-110)
[2024-03-22 20:26] LABS: Glucose Point of Care 297 mg/dL (70-110)
[2024-03-22] MEDS: enoxaparin 40 mg/0.4 mL Syringe SUBCUT (21:34)
[2024-03-22] MEDS: pantoprazole 40 mg SDV IVP (21:34)
[2024-03-22] MEDS: atorvastatin 40 mg Tablet PO (21:34)
[2024-03-23 04:00] VITALS: BP 125/69; PULSE 68; RESP 17; TEMP 36.6; O2SAT 92
[2024-03-23 05:59] LABS: Basophils # 0.1 10^3/uL (0.0-0.1); Basophils % 0.6 %; Eosinophils # 0.3 10^3/uL (0.0-0.8); Eosinophils % 2.9 %; Hematocrit 49.6 % (37-53); Lymphocytes # 2.3 10^3/uL (0.8-4.8); Lymphocytes % 26.6 %; Mean Corpuscular HGB Conc 33.1 g/dL (30-55); Mean Corpuscular Hemoglobin 32.5 pg (27-33); Mean Corpuscular Volume 98.4 fl (82-101); Mean Platelet Volume 10.9 fL (7.4-10.4); Monocytes % 11.7 %; Neutrophils # 4.94 10^3/uL (1.8-7.7); Neutrophils % 57.7 %; Nucleated Red Blood Cells % 0 %; Platelet Count 205 10^3/cmm (157-399); Red Blood Count 5.04 10^6/uL (3.85-5.65); Red Cell Distribution Width 13.2 % (12.1-15.1); White Blood Count 8.56 10^3/uL (3.29-11.43)
[2024-03-23 06:00] VITALS: BMI 25.4
[2024-03-23 06:23] LABS: Glucose Point of Care 137 mg/dL (70-110)
[2024-03-23 06:31] LABS: Alanine Aminotransferase 20 U/L (0-41); Albumin Level 3.6 g/dL (3.5-5.2); Alkaline Phosphatase 93 U/L (40-130); Anion Gap 14.1 (5-19); Aspartate Amino Transferase 17 U/L (0-40); Blood Urea Nitrogen 16 mg/dL (8-23); Calcium 8.8 mg/dL (8.5-10.5); Carbon Dioxide 26 mmol/L (22-29); Chloride 106 mmol/L (98-107); Creatinine Clr Calc Pharmacy 150.7984; Glomerular Filtration Rate 167.4 mL/min (90-130); Glucose 129 mg/dL (65-115); Osmolality Calculated 297 mOsm/kg (285-295); Potassium 4.1 mmol/L (3.5-5.1); Sodium 142 mmol/L (136-145); Total Bilirubin 0.8 mg/dL (0.15-1.2); Total Protein 6.6 g/dL (6.6-8.7)
[2024-03-23 08:00] VITALS: BP 151/81; PULSE 77; RESP 18; TEMP 36.9; O2SAT 90
[2024-03-23] MEDS: amlodipine 10 mg Tablet PO (10:32)
[2024-03-23 10:33] VITALS: BP 151/81
[2024-03-23] MEDS: losartan 50 mg Tablet PO (10:33)
[2024-03-23] MEDS: aspirin 81 mg EC Tablet PO (10:33)
[2024-03-23] MEDS: nicotine 21 mg Patch 1 PATCH TRANSDERMA (10:33)
[2024-03-23 11:19] LABS: Glucose Point of Care 193 mg/dL (70-110)
[2024-03-23 11:56] VITALS: BP 154/86; PULSE 89; RESP 16; TEMP 36.4; O2SAT 90
--- NOTE | 2024-03-23 12:01 | PM.DCS ---
Discharge Providers Date of Admission: 03/19/24 18:25 Date of Discharge: March 23, 2024 Attending Provider at Admission: Gurinder Ash MD Attending Provider at Discharge: Bernard Hurd MD Diagnoses at Discharge Discharge Diagnosis (1) Acute CVA (cerebrovascular accident): Status: Acute (2) Hypertension: Status: Acute (3) Type 2 diabetes mellitus: Status: Acute Reason for Visit Reason for Visit: RIGHT SIDED WEAKNESS Hospital Course Hospital Course Antwan Patel is a 63 year old male who presented to the emergency room via EMS with right upper and lower extremity weakness that started at around 2 PM. He presented to the emergency room at 5 PM. An NIH stroke scale was estimated at 6. Stroke alert was called and patient received tenecteplase at 5:26 PM. Patient had elevated blood pressures of 180/105 for which she received labetalol push which controlled his blood pressure. He is now being admitted to the ICU for post tenecteplase monitoring. Currently patient has residual right upper and lower extremity weakness, he is alert awake and oriented, able to hold a full conversation. Denies any chest pain dyspnea palpitations syncope prior to onset of symptoms. Patient was admitted to [facility] for Acute CVA (cerebrovascular accident) Post tenecteplase With residual right upper right lower extremity weakness Repeat CT head CT/CT head wo con* [id number] IMPRESSION: 1. Questionable increasing hypodensity in the posterior internal capsule on the left may represent subacute infarct. Recommend correlation with MRI. 2. No other evidence of acute intracranial pathology. 3. Senescent change echocardiogram CONCLUSIONS Mild to moderate concentric left ventricular hypertrophy. Borderline low LV ejection fraction of 51%.Grade I/IV diastolic dysfunction (abnormal relaxation filling pattern), normal to mildly elevated filling pressures. Trace mitral valve regurgitation. Trace tricuspid valve regurgitation. Estimated pulmonary artery peak systolic pressure, probably within normal limits There is no pericardial effusion. There are no intracardiac masses CTA head and neck IMPRESSION: 1. No vascular occlusion in the neck. The right vertebral artery has severe stenosis proximally. There is 50% stenosis also seen in the proximal left common carotid artery. 2. There is an 8 mm solid nodule present in the left upper lobe. For patients at low risk (minimal or absent history of smoking and of other known risk factors), recommend CT Chest at 6-12 months, then consider CT Chest at 18-24 months. For patients at high risk (history of smoking or of other known risk factors), recommend CT Chest at 6-12 months, then CT Chest at 18-24 months. (Reference: Sofi) MRI brain 1. Small area of acute ischemia in the posterior limb LEFT internal capsule measuring 12.3 x 6.7 mm corresponding to the CT findings. Associated T2 hyperintensity. 2. No significant mass effect. No hemorrhage. 3. No other acute findings. for his residual stroke symptoms, right upper right lower extremity weakness, status post tenecteplase, received inpatient physical therapy, aspirin, statin, blood pressure management, diabetes management, inpatient physical therapy, speech therapy ? Unfortunately patient does not have insurance, does not have the ability to afford outpatient physical therapy or inpatient physical therapy at a rehab facility ? Nonetheless received inpatient physical therapy, overall his strength of his right upper and right lower extremity his balance is significantly improved but continues to have persistent right upper and right lower extremity weakness, no facial droop no slurring of words no trouble swallowing no visual deficits -nonetheless seen by physical therapy, safe to discharge home, his is a [employer], will have appropriate help at home, continue physical therapy regimen at home, follow-up with primary care provider as outpatient -Discharged on aspirin, statin, with a close follow-up with neurology as outpatient ? Patient was advised if he were to have any strokelike symptoms to immediately call 911 For his type 2 diabetes mellitus, discharged with metformin, NovoLog, with instructions as below For his hypertension discharged on amlodipine, losartan. Patient will require extensive blood pressure monitoring as outpatient, follow-up with primary care follow-up with neurology For your pulmonary nodule Lungs: Marked emphysema in the lung apices. There is an 8 mm solid nodule present in the left upper lobe on series 5, image 56. ? Please stop smoking ? Discussed risk of lung cancer ? Needs to follow-up with pulmonology for consideration of lung biopsy or PET scan ? For emphysema, discharged on albuterol as needed, Advair twice daily, advised to quit smoking On discharge I did extensive discussion with patient about quitting smoking, his morbidity mortality associate smoking, he is a lung nodule there is a risk of progression, there is a risk of lung cancer, he has had a stroke risk of future strokes risk of heart attacks, he has emphysema risk of worsening emphysema, significant detriment to his life, advised to quit smoking, discharged with nicotine patch -Stroke, if you have any recurrent strokelike symptoms please call 911 ? Please take aspirin and statin as prescribed ? Please follow-up with neurology ? Please stop smoking -For your type 2 diabetes mellitus, please take metformin as prescribed, please have your primary care provider recheck your kidney function, and your liver function in 1 week -Please monitor your blood sugars closely -Monitor your blood sugars 3 times daily as after meals -Please record your blood sugars, and a blood sugar log -For your NovoLog -Please inject blood sugar after meals based on sliding scale provided -Do not inject insulin if you do not eat as hypoglycemia kills -This is a NovoLog sliding scale -Insulin sliding ?fingerstick? Insulin ?141-180?0 units/sq 181-220?2 units/sq ?221-260?4 units/sq ?261-300 6 units/sq ?301-350?8 units/sq ?351-400 10 units/sq ?401-450?12 units/sq >450? 14units/sq -If your blood sugar is greater than 500 go to the emergency room -If your blood sugar is less than 60 or at anytime you feel lightheaded or dizzy or diaphoretic or have chest palpitations check your blood sugar, and eat a hard candy or drink orange juice and go immediately to the emergency room -Remember hypoglycemia kills, so if his blood sugar is less than 60 we have to increase it by taking in a sugary meal such as a hard candy or orange juice and go to the emergency room -If you have any questions please call us where here to help -For your heart please follow-up with cardiology -For your lung nodule please follow-up with pulmonary, polyps Hospital follow-up for pulmonary nodule -For your emphysema, please stop smoking, discharged on albuterol as needed, Advair twice daily, monitor for shortness of breath Physical Exam Const: COMMON NORMALS: no acute distress and patient oriented x3 Resp: COMMON NORMALS: normal respiratory effort, No retractions, No use of accessory muscles and clear to auscultation bilaterally AUSCULTATION: clear to auscultation bilaterally Cardio: COMMON NORMALS: regular rate, regular rhythm, S1 normal heart sound present and S2 normal heart sound present RATE: regular rate RHYTHM: regular rhythm HEART SOUNDS: S1 normal heart sound present and S2 normal heart sound present GI: COMMON NORMALS: Normal to inspection, nondistended, normoactive bowel sounds present and non-tender Extremity: COMMON NORMALS: no pedal edema Neuro: COMMON NORMALS: patient oriented x3 OTHER: Right-sided deficits right upper right lower extremity deficits persist, but are improving, strength improving, mobility improving, no facial droop no slurring of words no visual deficits Psych: COMMON NORMALS: mental status grossly normal Discharge Data Studies Completed and Pending Completed Studies During Hospitalization Category Date Time Status CT head thrombolytic [id number] Stat Cat Scan 03/19/24 17:[address] head wo con* [id number] Routine Cat Scan 03/20/24 17:00 Completed CTA head neck [CT angio headneck* [id number]] Stat Cat Scan 03/19/24 17:27 Completed MR head wo con* [id number] Routine MRI 03/22/24 10:41 Completed CV. echo complete* [id number] Routine Ultrasound 03/20/24 06:00 Completed Pending at discharge Category Date Time Status Complete Blood Count w/Auto AM LABS Lab 03/24/24 04:00 Ordered Comprehensive Metabolic Panel AM LABS Lab 03/24/24 04:00 Ordered Radiology Impressions Head/Neck CTA 03/19/24 17:27 IMPRESSION: No acute large vessel occlusion identified. IMPRESSION: 1. No vascular occlusion in the neck. The right vertebral artery has severe stenosis proximally. There is 50% stenosis also seen in the proximal left common carotid artery. 2. There is an 8 mm solid nodule present in the left upper lobe. For patients at low risk (minimal or absent history of smoking and of other known risk factors), recommend CT Chest at 6-12 months, then consider CT Chest at 18-24 months. For patients at high risk (history of smoking or of other known risk factors), recommend CT Chest at 6-12 months, then CT Chest at 18-24 months. (Reference: Sofi) REFERENCES: 1. Sofi Montemayor et al. Guidelines for Management of Incidental Pulmonary Nodules Detected on CT Images: From the Fleischner Society 2017. Radiology. 2017;284(1):228-243. 2. NASCET CRITERIA. The degree of stenosis in the cervical segment of the internal carotid artery is based on NASCET criteria. Normal is no stenosis. Mild is less than 50% stenosis. Moderate is 50-69% stenosis. Severe is 70% to 99% stenosis. Total occlusion is no detectable patent lumen. Head CT 03/20/24 17:00 IMPRESSION: 1. Questionable increasing hypodensity in the posterior internal capsule on the left may represent subacute infarct. Recommend correlation with MRI. 2. No other evidence of acute intracranial pathology. 3. Senescent changes. Head MRI 03/22/24 10:41 IMPRESSION: 1. Small area of acute ischemia in the posterior limb LEFT internal capsule measuring 12.3 x 6.7 mm corresponding to the CT findings. Associated T2 hyperintensity. 2. No significant mass effect. No hemorrhage. 3. No other acute findings. Notified Bernard Hurd MD at 03/22/2024 11:23 AM. Laboratory Results WBC 8.56 10^3/uL (3.29-11.43) 03/23/24 04:57 Corrected WBC Cancelled 03/20/24 10:53 RBC 5.04 10^6/uL (3.85-5.65) 03/23/24 04:57 Hgb 16.40 g/dL (11.27-16.99) 03/23/24 04:57 Hct 49.6 % (37-53) 03/23/24 04:57 MCV 98.4 fl (82-101) 03/23/24 04:57 MCH 32.5 pg (27-33) 03/23/24 04:57 MCHC 33.1 g/dL (30-55) 03/23/24 04:57 RDW 13.2 % (12.1-15.1) 03/23/24 04:57 Plt Count 205 10^3/cmm (157-399) 03/23/24 04:57 MPV 10.9 fL (7.4-10.4) H 03/23/24 04:57 Gran % Cancelled 03/20/24 10:53 Neut % (Auto) 57.7 % 03/23/24 04:57 Lymph % (Auto) 26.6 % 03/23/24 04:57 Webb % (Auto) 11.7 % 03/23/24 04:57 Eos % (Auto) 2.9 % 03/23/24 04:57 Baso % (Auto) 0.6 % 03/23/24 04:57 Neut # (Auto) 4.94 10^3/uL (1.8-7.7) 03/23/24 04:57 Lymph # (Auto) 2.3 10^3/uL (0.8-4.8) 03/23/24 04:57 Webb # (Auto) 1.0 10^3/uL (0.2-0.9) H 03/23/24 04:57 Eos # (Auto) 0.3 10^3/uL (0.0-0.8) 03/23/24 04:57 Baso # (Auto) 0.1 10^3/uL (0.0-0.1) 03/23/24 04:57 Absolute Gran (auto) Cancelled 03/20/24 10:53 Nucleated RBC % (auto) 0 % 03/23/24 04:57 Nucleated RBCs # 0.0 /100WBC 03/23/24 04:57 PT 12.50 SECONDS (12.1-14.9) 03/19/24 17:31 INR 0.91 (0.8-1.2) 03/19/24 17:31 APTT 25.1 SECONDS (23.9-36.7) 03/19/24 17:31 Sodium 142 mmol/L (136-145) 03/23/24 04:57 Potassium 4.1 mmol/L (3.5-5.1) 03/23/24 04:57 Chloride 106 mmol/L (98-107) 03/23/24 04:57 Carbon Dioxide 26 mmol/L (22-29) 03/23/24 04:57 Anion Gap 14.1 (5-19) 03/23/24 04:57 BUN 16 mg/dL (8-23) 03/23/24 04:57 Creatinine 0.5 mg/dL (0.7-1.2) L 03/23/24 04:57 GFR Calculation 167.4 mL/min (90-130) H 03/23/24 04:57 Glucose 129 mg/dL (65-115) H 03/23/24 04:57 POC Glucose 193 mg/dL (70-110) H 03/23/24 11:01 Estimat Average Glucose 226 03/20/24 10:53 Hemoglobin A1c 9.5 % (4.0-6.0) H 03/20/24 10:53 Calculated Osmolality 297 mOsm/kg (285-295) H 03/23/24 04:57 Calcium 8.8 mg/dL (8.5-10.5) 03/23/24 04:57 Phosphorus 3.2 mg/dL (2.5-4.5) 03/20/24 10:53 Phosphorus Cancelled 03/20/24 10:53 Magnesium 1.9 mg/dL (1.7-2.3) 03/20/24 10:53 Magnesium Cancelled 03/20/24 10:53 Total Bilirubin 0.8 mg/dL (0.15-1.2) 03/23/24 04:57 AST 17 U/L (0-40) 03/23/24 04:57 ALT 20 U/L (0-41) 03/23/24 04:57 Alkaline Phosphatase 93 U/L (40-130) 03/23/24 04:57 Total Protein 6.6 g/dL (6.6-8.7) 03/23/24 04:57 Albumin 3.6 g/dL (3.5-5.2) 03/23/24 04:57 Globulin 3.0 g/dL (1.3-4.6) 03/23/24 04:57 Triglycerides 105 mg/dL (0-150) 03/20/24 10:53 Cholesterol 221 mg/dL (0-200) H 03/20/24 10:53 LDL Cholesterol, Calc 151 mg/dL (50-129) H 03/20/24 10:53 HDL Cholesterol 49 mg/dL (60-100) L 03/20/24 10:53 LDL/HDL Ratio 3.08 RATIO (0.00-3.22) 03/20/24 10:53 Cholesterol/HDL Ratio 4.51 mg/dL (1.0-5.00) 03/20/24 10:53 Procalcitonin 0.05 ng/mL (0-0.5) 03/19/24 17:56 TSH 1.83 uIU/mL (0.27-4.20) 03/19/24 17:56 Urine Color Yellow (Yellow) 03/19/24 18:20 Urine Appearance Clear (CLEAR) 03/19/24 18:20 Urine pH 5 (5-7) 03/19/24 18:20 Ur Specific [place] 1.015 (1.005-1.030) 03/19/24 18:20 Urine Protein 1+ (Negative) H 03/19/24 18:20 Urine Glucose (UA) 4+ (Normal) H 03/19/24 18:20 Urine Ketones Negative (Negative) 03/19/24 18:20 Urine Blood Neg (Negative) 03/19/24 18:20 Urine Nitrate Positive (Negative) A 03/19/24 18:20 Urine Bilirubin Neg (Negative) 03/19/24 18:20 Urine Urobilinogen Neg mg/dL (Negative) 03/19/24 18:20 Ur Leukocyte Esterase Negative (Negative) 03/19/24 18:20 Urine RBC 0-4 /hpf (0-2) H 03/19/24 18:20 Urine WBC 5-10 /hpf (0-5) H 03/19/24 18:20 Ur Squamous Epith Cells 0-4 /hpf (0-5) H 03/19/24 18:20 Amorphous Sediment Trace /hpf 03/19/24 18:20 Urine Bacteria 1+ /hpf (NONE) H 03/19/24 18:20 Hyaline Casts 0-4 /lpf H 03/19/24 18:20 Urine Mucus Trace /hpf 03/19/24 18:20 Urine Opiates Screen Negative ng/mL (Negative) 03/19/24 18:20 Ur Barbiturates Screen Negative ng/mL (Negative) 03/19/24 18:20 Ur Phencyclidine Scrn Negative ng/mL (Negative) 03/19/24 18:20 Ur Amphetamines Screen Negative ng/mL (Negative) 03/19/24 18:20 U Benzodiazepines Scrn Negative ng/mL (Negative) 03/19/24 18:20 Urine Cocaine Screen Negative ng/mL (Negative) 03/19/24 18:20 U Marijuana (THC) Screen Negative ng/mL (Negative) 03/19/24 18:20 Vitals Last Vital Signs Temp 97.6 F 03/23/24 11:56 Pulse 89 03/23/24 11:56 Resp 16 03/23/24 11:56 BP 154/86 03/23/24 11:56 Pulse Ox 90 03/23/24 11:56 O2 Del Method Room Air 03/23/24 11:56 O2 Flow Rate 1 03/22/24 19:56 Discharge Plan Discharge Patient Disposition: Home Condition: Stable Prescriptions: New losartan 50 mg Tablet 50 mg PO DAILY 30 Days Qty: 30 0RF cyclobenzaprine 10 mg Tablet 5 mg PO TID PRN (Reason: Muscle Spasms) 7 Days Qty: 11 0RF atorvastatin 40 mg Tablet 40 mg PO BEDTIME 30 Days Qty: 30 0RF aspirin 81 mg Tablet,Delayed Release (Dr/Ec) 81 mg PO DAILY 30 Days Qty: 30 0RF amlodipine 10 mg Tablet 10 mg PO DAILY 30 Days Qty: 30 0RF nicotine 21 mg/24 hr Patch 24 Hour 1 patch transdermal DAILY 30 Days Qty: 28 0RF metformin 500 mg tablet 500 mg PO BID 30 Days Qty: 60 0RF Novolog FlexPen U-100 Insulin 100 unit/mL (3 mL) insulin pen See Rx Instructions .ROUTE .COMPLEX Qty: 15 0RF Rx Instructions: Inject, subcut, 3 times daily, after meals, based on sliding scale provided Glucagon (HCl) Emergency Kit 1 mg recon soln 1 mg IM Q20M PRN (Reason: hypoglycemia) Qty: 1 0RF Rx Instructions: until target blood sugar attained (DME) glucometer testing kit See Rx Instructions .Route .MEDSUPPLY Qty: 1 0RF Rx Instructions: Lancets #100 Strips #100 albuterol sulfate 90 mcg/actuation HFA aerosol inhaler 1 inh inhalation Q6H PRN (Reason: shortness of breath or wheezing) Qty: 8.5 0RF Advair Diskus 100-50 mcg/dose blister with device 1 inh inhalation BID Qty: 60 0RF Discharge Orders: Discharge Order (Routine); Ordered 03/23/24 Ordered By: Bernard Hurd Referrals: Angelina Mansfield MD [Physician] - 7-10 days (acute cva ) Aaron Caal [Referring] - 1 week ([place] [facility], for pulmonary nodule referral) Ara Morton FNP [Nurse Practitioner] - 03/28/24 1:00 pm Jose Richardson MD [Physician] - 1 month (diminished EF We have notified your physician's clinic of the need for a follow-up appointment to be scheduled. If you have not heard from them within the next 2 business days, please call them directly. ) Patricia Cruz MD [Referring] - Katherine House MD [Referring] - Discharge Diet: Diabetic Discharge Activity: As per PT/OT instructions Patient Instructions: Type 2 Diabetes, Diabetes and Diet, Cyclobenzaprine (By mouth), Aspirin (By mouth), Nicotine (Absorbed through the skin) (Nicoderm CQ, Nicoderm CQ..., Glucagon (By injection), Amlodipine (By mouth), Losartan (By mouth), Metformin (By mouth), Atorvastatin (By mouth), Insulin Aspart, Recombinant (By injection), Hypertension, How to Stop Smoking (DC), How to Stop Smoking (GEN), Cigarette Smoking and Your Health (GEN), Foot Care for People with Diabetes (ED), Hypoglycemia in a Person with Diabetes (DC), Type 2 Diabetes in Adults: New Diagnosis (DC), Ischemic Stroke (DC), Mediterranean Diet (DC), What to Do if Your Blood Sugar is Low (DC), How to Check your Blood Sugar (GEN), Opioid Safety Activity Restrictions/Additional Instructions: -Stroke, if you have any recurrent strokelike symptoms please call 911 ? Please take aspirin and statin as prescribed ? Please follow-up with neurology ? Please stop smoking -For your type 2 diabetes mellitus, please take metformin as prescribed, please have your primary care provider recheck your kidney function, and your liver function in 1 week -Please monitor your blood sugars closely -Monitor your blood sugars 3 times daily as after meals -Please record your blood sugars, and a blood sugar log -For your NovoLog -Please inject blood sugar after meals based on sliding scale provided -Do not inject insulin if you do not eat as hypoglycemia kills -This is a NovoLog sliding scale -Insulin sliding ?fingerstick? Insulin ?141-180?0 units/sq 181-220?2 units/sq ?221-260?4 units/sq ?261-300 6 units/sq ?301-350?8 units/sq ?351-400 10 units/sq ?401-450?12 units/sq >450? 14units/sq -If your blood sugar is greater than 500 go to the emergency room -If your blood sugar is less than 60 or at anytime you feel lightheaded or dizzy or diaphoretic or have chest palpitations check your blood sugar, and eat a hard candy or drink orange juice and go immediately to the emergency room -Remember hypoglycemia kills, so if his blood sugar is less than 60 we have to increase it by taking in a sugary meal such as a hard candy or orange juice and go to the emergency room -If you have any questions please call us where here to help -For your heart please follow-up with cardiology -For your lung nodule please follow-up with pulmonary, polyps Hospital follow-up for pulmonary nodule -For your emphysema, please stop smoking, discharged on albuterol as needed, Advair twice daily, monitor for shortness of breath Discharge Attestations Time Spent in Discharge Care*: greater than 30 min Time Spent in Smoking Cessation: more than 10 minutes As above Quality Metrics Clinical Quality Measures [ Cerebrovascular Accident { Contraindication to Antithrombotic: None; antithrombotic prescribed; Contraindication to Anticoagulation: Overlap treatment not indicated; Contraindication to Statin: None; Statin prescribed;}] Coding Level of Care Code 50681 Total time (in minutes) for Discharge: 50 Diagnoses Acute CVA (cerebrovascular accident) I63.9 Hypertension I10 Type 2 diabetes mellitus E11.9
--- NOTE | 2024-03-23 12:17 | PC.NURSE ---
RN gives in depth education on monitoring diabetes and blood pressure at home. Education provided on insulin injections, rotating sites, proper needle disposal. Education given on removing nicotine patch and reapplication. All questions answered at this time. IV out. Awaiting meds to beds at this time.
[2024-03-23 13:40] VITALS: BP 154/86; PULSE 89; RESP 16; TEMP 36.4; O2SAT 90
== END 2024-03-23 13:42 | disposition home or self-care (01) | DRG 65 ==
LOC: ER 18:42 → ICU 18:50 → MEDSURG 03-21 15:50
PROVIDERS: Family Medicine; Admitting Provider Student in an Organized Health Care Education/Training Program; Emergency Provider Emergency Medicine; Visit Provider Family Medicine
DX: I63.9 Cerebral infarction, unspecified (principal); G81.91 Hemiplegia, unspecified affecting right dominant side; R27.0 Ataxia, unspecified; I10 Essential (primary) hypertension; R29.706 NIHSS score 6; Z72.0 Tobacco use; E11.9 Type 2 diabetes mellitus without complications; Z91.148 Patient's other noncompliance with medication regimen for other reason; R91.1 Solitary pulmonary nodule
CPT/HCPCS: 36415; 36416; 70450; 70496; 70498; 70551; 80053; 80061; 80306; 81001; 82962; 83036; 83735; 84100; 84145; 84443; 85025; 85610; 85730; 92523; 92526; 92610; 93005; 93306; 96372; 96374; 96375; 96376; 97110; 97116; 97162; 97165; 97530; 99291; C9113; J0360; J1650; J1815; J2270; J3101; J3490; Q9967

== ENCOUNTER → 2024-03-28 14:13 | Outpatient (BNVA) | payer SELFPAY | PROVIDERS: PCP Nurse Practitioner; Visit Provider Nurse Practitioner | DX: I63.9 Cerebral infarction, unspecified (principal); E11.9 Type 2 diabetes mellitus without complications | CPT/HCPCS: 83036 ==

== ENCOUNTER → 2024-08-24 14:09 | Outpatient (BNVA) | payer MEDICARE, SELFPAY | PROVIDERS: PCP Nurse Practitioner; Visit Provider Specialist | DX: I69.351 Hemiplegia and hemiparesis following cerebral infarction affecting right dominant side; I10 Essential (primary) hypertension; F17.210 Nicotine dependence, cigarettes, uncomplicated; Z71.6 Tobacco abuse counseling | CPT/HCPCS: 99214 ==

== ENCOUNTER → 2025-05-15 14:18 | Outpatient (BNVA) | payer MEDICARE, SELFPAY | PROVIDERS: PCP Nurse Practitioner; Visit Provider Nurse Practitioner | DX: I10 Essential (primary) hypertension (principal); E11.9 Type 2 diabetes mellitus without complications | CPT/HCPCS: 80053; 80061; 83036; 84443 ==

== ENCOUNTER 2025-05-22 18:11 | Inpatient (IN) | payer MEDICARE, SELFPAY ==
[2025-05-22] VITALS (8 sets, daily range): BP systolic 169–182; BP diastolic 70–92; PULSE 75–81; RESP 16–17; TEMP 36.5–36.6; O2SAT 91–92; BMI 25.0; BMI 25.4
--- NOTE | 2025-05-22 18:12 | ED_ITS ---
HPI - Fall 2 General: Chief Complaint: Fall Stated Complaint: fall - right hip pain Time Seen by Provider: 05/22/25 18:12 History of Present Illness: 64-year-old male presents emergency room by EMS after a fall complaining of right hip pain. Patient a ground-level mechanical fall around 9 or 930 this morning. He had a previous stroke he states his feet got tangled up try to catch himself as he went down he said he almost hit a wall as he went down but he is able to push himself away from it as a result of which he landed directly on his right hip. His helped him up got him into the house put him in a recliner where he stayed most of the day. He thought he would be able to wait it out it would get better and he be able to stand and walk for it at never improved eventually they called EMS. He takes aspirin daily he last ate this morning. Associated symptoms-after fall: Denies abdominal pain, chest pain or neck pain Related Data Previous Rx's ?Medication ?Instructions ?Recorded glucagon HCl 1 mg solution for 1 mg IM Q20M PRN hypogl ycemia #1 ea 03/23/24 injection (Glucagon (HCl) Emergency Kit) glucometer testing kit #1 ea 03/23/24 Allergies Allergy/AdvReac Type Severity Reaction Status Date / Time No Known Allergies Allergy Verified 05/15/25 14:00 Review of Systems 2 Const: Denies: fever(s) or chills Card: Denies: chest pain Resp: Denies: dyspnea GI: Denies: abdominal pain : Denies: dysuria, urinary frequency or urinary urgency Musc: Denies: neck pain or back pain Skin/Breast: Denies: rash PFSH ED 2 PFSH: Medical History Hypertension Social History Smoking and tobacco/nicotine status: current every day tobacco/nicotine user (down to 1ppd) Physical Exam 2 Const: GENERAL APPEARANCE: cooperative ORIENTATION/CONSCIOUSNESS: Yes awake, Yes oriented to person, Yes oriented to place and Yes oriented to time HENMT: COMMON NORMALS: normocephalic, atraumatic and hearing grossly normal bilaterally HEAD & SCALP: normocephalic and atraumatic Resp: COMMON NORMALS: normal respiratory effort, No retractions, No use of accessory muscles and clear to auscultation bilaterally AUSCULTATION: clear to auscultation bilaterally Cardio: COMMON NORMALS: regular rate, regular rhythm and No murmurs present (Cardio) RATE: regular rate RHYTHM: regular rhythm GI: COMMON NORMALS: Soft to palpation and No hepatosplenomegaly present A USCULTATION: Yes normoactive bowel sounds PALPATION: Yes Soft to palpation, No Tenderness to palpation present (GI), No Guarding due to palpation present (GI) and Yes No hepatosplenomegaly present Extremity: OTHER: Left leg shortened and externally rotated peripheral pulses good sensation normal Neuro: SENSORIUM/ORIENTATION: Yes oriented to person, Yes oriented to place and Yes oriented to time Skin: COMMON NORMALS: no rashes or lesions noted GENERAL SKIN EXAM: no rashes or lesions noted Course 2 Vital Signs: Vital signs: Vital Signs Temperature 97.9 F 05/22/25 20:47 Pulse Rate 75 05/22/25 20:47 Respiratory Rate 17 05/22/25 20:47 Blood Pressure 182/70 05/22/25 20:47 Pulse Oximetry 91 05/22/25 20:47 Oxygen Delivery Me thod Room Air 05/22/25 20:47 MDM - Fall Medical Decision Making Right femoral neck fracture mildly displaced discussed with hospitalist and with orthopedics. Will admit to Dr. Rosario, consult for Dr. Christine. Medical Records I reviewed the patient's medical records. Lab Data I reviewed the patient's lab results. 05/22/25 18:52 05/22/25 18:52 Radiology Impressions Hip/Pelvis X-Ray 05/22/25 18:12 IMPRESSION: On the right, Femoral neck fracture, minimal displacement, apex lateral and posterior angulation. Chest X-Ray 05/22/25 18:28 IMPRESSION: No definite acute infiltrate or effusion. Laboratory Results WBC 12.28 10^3/uL (3.29-11.43) H 05/22/25 18:52 RBC 4.92 10^6/uL (3.85-5.65) 05/22/25 18:52 Hgb 15.00 g/dL (11.27-16.99) 05/22/25 18:52 Hct 44.9 % (37-53) 05/22/25 18:52 MCV 91.3 fl (82-101) 05/22/25 18:52 MCH 30.5 pg (27-33) 05/22/25 18:52 MCHC 33.4 g/dL (30-55) 05/22/25 18:52 RDW 13.5 % (12.1-15.1) 05/22/25 18:52 Plt Count 231 10^3/cmm (157-399) 05/22/25 18:52 MPV 10.6 fL (7.4-10.4) H 05/22/25 18:52 Neut % (Auto) 77.0 % 05/22/25 18:52 Lymph % (Auto) 12.6 % 05/22/25 18:52 Addison % (Auto) 8.9 % 05/22/25 18:52 Eos % (Auto) 0.8 % 05/22/25 18:52 Baso % (Auto) 0.4 % 05/22/25 18:52 Neut # (Auto) 9.45 10^3/uL (1.8-7.7) H 05/22/25 18:52 Lymph # (Auto) 1.6 10^3/uL (0.8-4.8) 05/22/25 18:52 Addison # (Auto) 1.1 10^3/uL (0.2-0.9) H 05/22/25 18:52 Eos # (Auto) 0.1 10^3/uL (0.0-0.8) 05/22/25 18:52 Baso # (Auto) 0.1 10^3/uL (0.0-0.1) 05/22/25 18:52 Nucleated RBC % (auto) 0 % 05/22/25 18:52 Nucleated RBCs # 0.0 /100WBC 05/22/25 18:52 PT 13.10 SECONDS (12.1-14.9) 05/22/25 18:52 INR 0.92 (0.8-1.2) 05/22/25 18:52 Sodium 137 mmol/L (136-145) 05/22/25 18:52 Potassium 4.3 mmol/L (3.5-5.1) 05/22/25 18:52 Chloride 102 mmol/L (98-107) 05/22/25 18:52 Carbon Dioxide 26 mmol/L (22-29) 05/22/25 18:52 Anion Gap 13.3 (5-19) 05/22/25 18:52 BUN 15 mg/dL (8-23) 05/22/25 18:52 Creatinine 0.7 mg/dL (0.7-1.2) 05/22/25 18:52 GFR Calculation 113.2 mL/min (90-130) 05/22/25 18:52 Glucose 240 mg/dL (65-115) H 05/22/25 18:52 Calculated Osmolality 293 mOsm/kg (285-295) 05/22/25 18:52 Calcium 9.0 mg/dL (8.5-10.5) 05/22/25 18:52 Total Bilirubin 0.2 mg/dL (0.15-1.2) 05/22/25 18:52 AST 11 U/L (0-40) 05/22/25 18:52 ALT 15 U/L (0-41) 05/22/25 18:52 Alkaline Phosphatase 94 U/L (40-130) 05/22/25 18:52 Creatine Kinase 40 U/L (39-308) 05/22/25 18:52 Total Protein 7.0 g/dL (6.6-8.7) 05/22/25 18:52 Albumin 3.8 g/dL (3.5-5.2) 05/22/25 18:52 Globulin 3.2 g/dL (1.3-4.6) 05/22/25 18:52 All radiology interpretation(s) finalized by discharge EKG Data EKG 1: Interpretation: EKG 05/22/2025 1840 sinus rhythm no acute ST changes noted rate of 86 CA interval 186 QTc 471 Q waves in V1 and 2 unchanged from previous EKG on 03/19/2024 Discharge Plan Discharge Patient Disposition: Admitted As Inpatient Admit Provider: Diamond Wood Clinical Impression: Fracture of neck of right femur, Hypertension, Type 2 diabetes mellitus, Spastic hemiparesis of right dominant side Condition: Stable Coding Level of Care Code ED Environmental Sustainability Manager for g Linda
--- NOTE | 2025-05-22 18:12 | XRR_ITS ---
PROCEDURE INFORMATION: Exam: XR Right Hip Exam date and time: 05/22/2025 6:18 PM Age: 64 years old Clinical indication: Injury or trauma; Fall; Blunt trauma (contusions or hematomas); Right; Hip TECHNIQUE: Imaging protocol: Radiologic exam of the right hip. Views: 1 view hip with pelvis when performed. COMPARISON: No relevant prior studies available. FINDINGS: Bones/joints: On the right, Femoral neck fracture, minimal displacement, apex lateral and posterior angulation. Soft tissues: Unremarkable. XR/XR hip RT 2-3V wo/w pel* [id number] IMPRESSION: On the right, Femoral neck fracture, minimal displacement, apex lateral and posterior angulation.
--- NOTE | 2025-05-22 18:28 | ECG_ITS ---
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 Measurements Intervals Wilbur Rate: 86 P: 59 DE: 186 QRS: -13 QRSD: 109 T: 1 QT: 392 QTc: 471 Interpretive Statements SINUS RHYTHM POSSIBLE LEFT ATRIAL ENLARGEMENT [-0.1mV P-WAVE IN V1/V2] SEPTAL MYOCARDIAL INFARCTION , OF INDETERMINATE AGE [40+ ms Q WAVE IN V1/V2] Compared to ECG 03/19/2024 17:58:56 No significant changes Electronically Signed On 05-23-2025 21:45:55 CDT by Jose Richardson M.D. [email or web address]
--- NOTE | 2025-05-22 18:28 | XRR_ITS ---
PROCEDURE INFORMATION: Exam: XR Chest Exam date and time: 05/22/2025 6:25 PM Age: 64 years old Clinical indication: Screening exam; Pre-operative exam; Cardiovascular screening; PT broke RT hip PT turned to the right got PT as straight as i could; Additional info: Dyspnea/cough TECHNIQUE: Imaging protocol: Radiologic exam of the chest. Views: 1 view. COMPARISON: No relevant prior studies available. FINDINGS: Lungs: No definite acute infiltrate or effusion. Pleural spaces: Unremarkable. No pleural effusion. No pneumothorax. Heart/Mediastinum: Unremarkable. No cardiomegaly. Vasculature: Probable aortic atherosclerosis. Bones/joints: Mild degenerative changes of the AC joint. XR/XR chest 1V portable [id number] IMPRESSION: No definite acute infiltrate or effusion.
--- OUTSIDE RECORDS SUMMARY | 2025-05-22 18:31 | XMS_ITS | Clinical Summary ---
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 Active OTHER Berberine supplements 400mg- TID Active OTHER Omni gtts TID Active Active Problems No known active problems Encounters Date Type Department Care Team Description 04/11/2025 External Device Data [facility]STRACTION Provider, Abstract 03/14/2025 External Device Data [facility]STRA[facility] Provider, Abstract from Last 3 Months Social History Tobacco Use Types Packs/Day Years Used Date Smoking Tobacco: Every Day Cigarettes Smokeless Tobacco: Never Tobacco Cessation:Ready to Q uit: Not Asked; Counseling Given: Not Answered Alcohol Use Standard Drinks/Week Comments Not Currently 0 (1 standard drink = 0.6 oz pur e alcohol) Feeling Safe Answer Date Recorded Are you in a relationship wi th someone who hurts you emotionally and/or physically? 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 Gender Identity Not on file Sexual Orientation Not on file Last Filed Vital Signs Vital Sign Reading Time Taken Comments Blood Pressure 155/86 01/24/2025 11:31 AM CDT Pulse 80 01/24/2025 11:31 AM CDT Temperature 36.4 C (97.6 F) 01/24/2025 11:31 AM CDT Respiratory Rate 16 01/24/2025 11:31 AM CDT Oxygen Saturation 94% 01/24/2025 11:31 AM CDT Inhaled Oxygen Concentration - - Weight 74.6 kg (164 lb 8 oz) 01/24/2025 10:21 AM CDT Height 174 cm (5' 8.5 ) 01/24/2025 10:21 AM CDT Body Mass Index 24.65 01/24/2025 10:21 AM CDT Plan of Treatment Health Maintenance Due Date Last Done Comments Pre-Diabetes and Diabetes Screening 1960 DTAP/TDAP/TD VACCINES (1 - Tdap) 1978 PNEUMOCOCCAL VACCINE 50+ YEARS (1 of 2 - PCV) 09/05/19 78 COLORECTAL SCREENING 2004 Colorectal Cancer Screening 2004 FIT-DNA Q 3 years 2004 FIT/FOBT Q 1 year 2004 Flex Sig/CT Colonography Q 5 years 2004 ZOSTER VACCINE (1 of 2) 2009 Abdominal Aortic Aneurysm (AAA) Screening 2024 INFLUENZA VACCINE (#1) 2025 RSV VACCINE (60+ or ) (1 - 1-dose 75+ series) 2034 Medical Devices Implanted Type Area Automotive Project Engineer Device Identifier Shelf Expiration Date Model / Serial / Lot Lens Iol Tecnis Eyhance 15.0 [id number] - [id number] Implanted:Qty: 1 on 01/03/2025 by Toi Singh MD at [facility] Right: Eye [employer] 06/15/2027 [id number] / [id number] / Lens Iol Tecnis Eyhance 14.5 [id number] - [id number] Implanted:Qty: 1 on 01/24/2025 by Toi Singh MD at [facility] Left: Eye [employer] [id number] 05/06/2027 [id number] / [id number] / Insurance [facility] MEDICAID [place] Advance Directives For more information, please contact: [phone] * Full Code (Latest Code Status on File) Date Activated Date Inactivated Comments 01/03/2025 10:57 AM 01/03/2025 3:10 PM
[2025-05-22 19:02] LABS: Hematocrit 44.9 % (37-53); Hemoglobin 15.00 g/dL (11.27-16.99); Mean Corpuscular HGB Conc 33.4 g/dL (30-55); Mean Corpuscular Hemoglobin 30.5 pg (27-33); Mean Corpuscular Volume 91.3 fl (82-101); Nucleated Red Blood Cells % 0 %; Platelet Count 231 10^3/cmm (157-399); Red Blood Count 4.92 10^6/uL (3.85-5.65); White Blood Count 12.28 10^3/uL (3.29-11.43)
[2025-05-22 19:13] LABS: Blood Urea Nitrogen 15 mg/dL (8-23); Calcium 9.0 mg/dL (8.5-10.5); Chloride 102 mmol/L (98-107); Creatinine Clr Calc Pharmacy 92.4182; INR 0.92 (0.8-1.2); Potassium 4.3 mmol/L (3.5-5.1); Prothrombin Time 13.10 SECONDS (12.1-14.9); Sodium 137 mmol/L (136-145)
[2025-05-22 19:39] LABS: Glucose Urine UA 3+ (Normal); Nitrate Urine Negative (Negative)
[2025-05-22 19:40] LABS: Alanine Aminotransferase 15 U/L (0-41); Albumin Level 3.8 g/dL (3.5-5.2); Alkaline Phosphatase 94 U/L (40-130); Anion Gap 13.3 (5-19); Aspartate Amino Transferase 11 U/L (0-40); Carbon Dioxide 26 mmol/L (22-29); Globulin 3.2 g/dL (1.3-4.6); Glucose 240 mg/dL (65-115); Osmolality Calculated 293 mOsm/kg (285-295); Total Protein 7.0 g/dL (6.6-8.7)
[2025-05-22 19:44] LABS: Add Urine Microscopic? YES
[2025-05-22 19:49] LABS: Specific Gravity, Urine 1.039 (1.005-1.030)
[2025-05-22] MEDS: fentaNYL 50 mcg/mL INJ 2mL IVP (20:04)
[2025-05-22] MEDS: morphine 4 mg/mL SDV 1 mL IVP (22:37)
--- NOTE | 2025-05-22 23:39 | P.HP_ITS ---
Providers/Chief Complaint 2 Admitting Physician: Diamond Wood MD--patient seen and evaluated before 12 midnight Primary Care Provider: TEMO Call Chief Complaint: fall - right hip pain History of Present Illness Antwan Patel is a 64 year old male who had a history of stroke with right side weakness patient had sustained a mechanical fall on the right side because he could not gain much control because of the impediments of the right side of his body due to prior stroke. Patient fell on the right and sustained a right hip fracture emergency room did call the orthopedics who will be doing the surgery tomorrow being 05/24/2025. Patient is hemodynamically stable patient smokes heavily 1 to 2 packs of cigarettes despite having stroke recently. Patient has been counseled against smoking he verbalized he understands. Pain management optimized with morphine. Review of Systems 2 Narrative: System review (10 organ reviewed with significant for musculoskeletal system with right hip fracture otherwise unremarkable Medications/Allergies Home Medications ?Medication ?Instructions ?Recorded ?Confirmed ?Last Taken ?Type glucagon HCl 1 mg solution for 1 mg IM Q20M PRN hypogl ycemia #1 ea 03/23/24 05/15/25 Unknown Rx injection (Glucagon (HCl) Emergency Kit) glucometer testing kit #1 ea 03/23/24 05/15/25 Unkn own Rx Allergies Allergy/AdvReac Type Severity Reaction Status Date / Time No Known Allergies Allergy Verified 05/15/25 14:00 PFSH Acute 2 PFSH: Medical History Hypertension Social History Smoking and tobacco/nicotine status: current every day tobacco/nicotine user (down to 1ppd) Vitals/I&O/Wt Last Vital Signs Temp 97.9 F 05/22/25 20:47 Pulse 75 05/22/25 20:47 Resp 17 05/22/25 22:37 BP 182/70 05/22/25 20:47 Pulse Ox 91 05/22/25 22:37 O2 Del Method Room Air 05/22/25 20:47 Weight last 48 hrs Weight 76.113 kg Weight 74.843 kg Physical Exam 2 Narrative: Patient is not ill-appearing patient verbalizes doing okay as long as he stays still. Pain is mostly movement related. HEENT normocephalic/atraumatic neck neck is supple cardiovascular heart rate is regular lungs are pretty much clear abdomen soft nontender nondistended unremarkable extremities are intact no edema has good pulses. Bilateral outer thigh of the right lower extremity has some fullness which is the area of fracture. It was been noted that the right lower extremity is shorter than the left likely due to fracture. Neurology has no focality lab studies lab studies reviewed and noted. Data 05/23/25 01:40 05/23/25 01:40 A&P Assessment and plan 1. Fracture of neck of right femur: 2. Hemiplegia as late effect of stroke: 3. Spastic hemiparesis of right dominant side: 4. Type 2 diabetes mellitus: 5. Acute CVA (cerebrovascular accident): Plan: Right hip fracture - Admit to general medical floor on surgical unit - Orthopedics consulted - Patient for surgery tomorrow patient be n.p.o. after 12 midnight today - Continue pain management with morphine - Must continue to follow through and optimize - Patient may feed today continue with gentle hydration. Chronic medical conditions such as-diabetes type 2, hypertension, CVA, she will continue with home medication for chronic illness. PDMP PDMP Reviewed: Not Reviewed Attestations 2 Medical Necessity Statement*: Patient status post right hip fracture awaiting surgical repair and is inpatient at this time and need to midnights for care and optimization Coding Level of Care Code 25991 Diagnoses Fracture of neck of right femur S72.001A Hemiplegia as late effect of stroke I69.359 Spastic hemiparesis of right dominant side G81.11 Type 2 diabetes mellitus E11.9 Acute CVA (cerebrovascular accident) I63.9 Time Spent (min) 50
[2025-05-23] VITALS (20 sets, daily range): BP systolic 92–194; BP diastolic 44–88; PULSE 58–90; RESP 12–23; TEMP 36.6–37.4; O2SAT 90–99
[2025-05-23] MEDS: heparin 5,000 unit/mL INJ 1 mL 5000 UNIT SUBCUT ×2 (00:14→23:40)
[2025-05-23] MEDS: HYDROcodone-acetaminophen 5-325 mg Tablet 1 TAB PO ×3 (00:14→22:04)
[2025-05-23 03:21] LABS: Hematocrit 42.4 % (37-53); Hemoglobin 14.30 g/dL (11.27-16.99); Mean Corpuscular HGB Conc 33.7 g/dL (30-55); Mean Corpuscular Hemoglobin 31.2 pg (27-33); Mean Corpuscular Volume 92.4 fl (82-101); Nucleated Red Blood Cells % 0 %; Platelet Count 231 10^3/cmm (157-399); Red Blood Count 4.59 10^6/uL (3.85-5.65); White Blood Count 12.78 10^3/uL (3.29-11.43)
[2025-05-23 03:52] LABS: Alanine Aminotransferase 13 U/L (0-41); Albumin Level 3.5 g/dL (3.5-5.2); Alkaline Phosphatase 88 U/L (40-130); Anion Gap 13.7 (5-19); Aspartate Amino Transferase 9 U/L (0-40); Blood Urea Nitrogen 12 mg/dL (8-23); Calcium 8.7 mg/dL (8.5-10.5); Carbon Dioxide 24 mmol/L (22-29); Chloride 102 mmol/L (98-107); Creatinine Clr Calc Pharmacy 93.0797; Globulin 3.0 g/dL (1.3-4.6); Glucose 196 mg/dL (65-115); Magnesium 1.9 mg/dL (1.7-2.3); Osmolality Calculated 287 mOsm/kg (285-295); Potassium 3.7 mmol/L (3.5-5.1); Sodium 136 mmol/L (136-145); Total Protein 6.5 g/dL (6.6-8.7)
--- NOTE | 2025-05-23 08:10 | P.CONIM_ITS ---
Providers/Reason For Consult 2 Consulting Physician/Specialty*: Hospitalist Reason for Consult*: Right hip fracture Attending Physician: Bernard Hurd MD Primary Care Provider: TEMO Call History of Present Illness History of Present Illness Antwan Patel is a 64 year old male who had a history of stroke with right side weakness patient had sustained a mechanical fall on the right side because he could not gain much control because of the impediments of the right side of his body due to prior stroke. Patient fell on the right and sustained a right hip fracture Review of Systems 2 Const: Denies: fever(s) or chills Card: Denies: chest pain Resp: Denies: dyspnea GI: Denies: abdominal pain : Denies: dysuria, urinary frequency or urinary urgency Musc: Denies: neck pain or back pain Skin/Breast: Denies: rash Medications/Allergies Home Medications ?Medication ?Instructions ?Recorded ?Confirmed ?Last Taken ?Type glucagon HCl 1 mg solution for 1 mg IM Q20M PRN hypogl ycemia #1 ea 03/23/24 05/15/25 Unknown Rx injection (Glucagon (HCl) Emergency Kit) glucometer testing kit #1 ea 03/23/24 05/15/25 Unkn own Rx Allergies Allergy/AdvReac Type Severity Reaction Status Date / Time No Known Allergies Allergy Verified 05/15/25 14:00 Current Medications Generic Name Dose Route Start Last Admin Trade Name Freq PRN Reason Stop Dose Admin Hydrocodone Bitart/Acetaminophen 1 tab 05/22/25 23:39 05/23/25 00:14 Hydrocodone-Acetaminophen 5-325 Mg Tablet PO 1 tab Q4H PRN Administration MODERATE TO SEVERE PAIN Heparin Sodium (Porcine) 5,000 unit 05/22/25 23:45 05/23/25 00:14 Heparin 5,000 Unit/Ml Inj 1 Ml SUBCUT 5,000 unit Q12H BRAD Administration Sodium Chloride 1,000 mls @ 75 mls/hr 05/22/25 23:45 05/23/25 00:15 Sodium Chloride 0.9% IV 75 mls/hr .[id number] BRAD Administration PFSH Acute 2 PFSH: Medical History Hypertension Social History Smoking and tobacco/nicotine status: current every day tobacco/nicotine user (down to 1ppd) Vitals/I&O/Wt Last Vital Signs Temp 98.4 F 05/23/25 07:41 Pulse 83 05/23/25 07:41 Resp 19 H 05/23/25 07:41 BP 194/88 05/23/25 07:41 Pulse Ox 90 05/23/25 07:41 O2 Del Method Room Air 05/23/25 07:41 Weight last 48 hrs Weight 166 lb 8 oz Weight 167 lb 12.8 oz Weight 165 lb Physical Exam 2 Narrative: Alert and oriented x 3 Head is normocephalic atraumatic Respirations are intact No evidence of any rashes or infection Right lower extremity shortened and externally rotated Data 05/23/25 01:40 05/23/25 01:40 A&P Assessment and plan 1. Fracture of neck of right femur: Plan to do right hip hemiarthroplasty at noon today. PDMP PDMP Reviewed: Not Reviewed Coding Level of Care Code Acute Code for [facility] Fwd Diagnoses Fracture of neck of right femur S72.001A
--- NOTE | 2025-05-23 08:55 | PC.PHAR ---
Pt states he takes no medications and does not believe in them or trust them.
--- NOTE | 2025-05-23 09:08 | PC.CHAP ---
Pastoral Care Encounter/Spiritual Assessment Type of Contact [] Declined processing spec visit [] Patient/Family/Request visit [] Outpatient visit [] Follow-up visit [] Physician referral [] Code/Alert [x] Routine visit [] Staff referral [] Actively dying [] Patient sleeping [] Family support [] [] Out of room [] Palliative care [] [] Receiving care in room [] Pre-surgical visit [] Trauma [] Long length of stay [] ICU visit [] Other: Relational/Emotional Strength [x] Patient feels connected with others/family/visitors/staff [] Distress [] Loneliness/isolation [] Abandonment Spirituality of Patient [x] Person of Rupinder [] Attends Orthodoxy of their Rupinder [x] Believes in Prayer [] Reads Bible or Christian materials [] There are Spiritual issues to be addressed [place] Interventions [x] Prayer [x] Active listening [x] Non-anxious presence [x] Spiritual/emotional support [] Crisis/trauma care [] Spiritual counseling [] Bereavement support [] Provided bereavement packet [] Provided Bible/devotional materials [] Provided toy/stuffed animal, coloring book to patient or family member [] Provided Communion [] Anointing/[place] [] Salvation [x] Completed spiritual assessment [] Other: Impact on Illness or Injury [] Angry [] Fearful [] Anxious [] Often cries [] Exhaustion [] Unable to work [] Unable to attend orthodoxy [] Unable to walk/stand [] Unable to read [] Unable to drive [] Unable to eat/drink [] Unable to sleep [] Unable to be with family [] Patient intubated [] Other: Summary Time spent with patient 5 min
--- NOTE | 2025-05-23 11:18 | PC.NURSE ---
pt to the or @ approx. 1113
--- NOTE | 2025-05-23 11:26 | ANES.PREANE2 ---
Pre-Anesthetic Assessment Height/Weight: Height 1.73 m Weight 75.523 kg Temp Pulse Resp BP Pulse Ox O2 Del Method 98.4 F 83 19 H 194/88 90 Room Air 05/23/25 07:41 05/23/25 07:41 05/23/25 07:41 05/23/25 07:41 05/23/25 07:41 05/23/25 07:41 Operation Date: 05/23/25 12:00 Proposed Procedures p Hemiarthroplasty Hip(Right) - Aashish Christine, DO Familial anesthetic complications: None Was Beta Don taken within 24 hours: N/A Was Clonidine taken within 24 hours: N/A Last intake: Intake Last Liquid Date 05/22/25 Last Liquid Time 15:30 Last Solid Date 05/22/25 Last Solid Time 15:00 Social Tobacco and No alcohol Exam alert, oriented x 3, clear to auscultation bilaterally and regular rate & rhythm Airway Mallampati: Class I Dentition: full CV/HEM Hypertension Metabolic Diabetes Mellitus Neuropsych Cerebrovascular Accident (R hemiplegia) Anesthetic Plan ASA status: 3 Anesthesia: General Risk of > 500 ml blood loss (7ml/kg in children): No Medications/Allergies Home Medications ?Medication ?Instructions ?Recorded ?Confirmed ?Last Taken ?Type glucagon HCl 1 mg solution for 1 mg IM Q20M PRN hypoglycemia #1 ea 03/23/24 05/23/25 Unknown Rx injection (Glucagon (HCl) Emergency Kit) glucometer testing kit #1 ea 03/23/24 05/23/25 Unknown Rx Allergies Allergy/AdvReac Type Severity Reaction Status Date / Time No Known Allergies Allergy Verified 05/15/25 14:00 Current Medications Generic Name Dose Route Start Last Admin Trade Name Freq PRN Reason Stop Dose Admin Hydrocodone Bitart/Acetaminophen 1 tab 05/22/25 23:39 05/23/25 08:58 Hydrocodone-Acetaminophen 5-325 Mg Tablet PO 1 tab Q4H PRN Administration MODERATE TO SEVERE PAIN Docusate Sodium 100 mg 05/23/25 09:00 05/23/25 08:58 Docusate Sodium 100 Mg Capsule PO 100 mg On Hold: 05/23/25 11:22 BID BRAD Administration Comment: Order held by Process Transfer Heparin Sodium (Porcine) 5,000 unit 05/22/25 23:45 05/23/25 00:14 Heparin 5,000 Unit/Ml Inj 1 Ml SUBCUT 5,000 unit Q12H BRAD Administration Sodium Chloride 1,000 mls @ 75 mls/hr 05/22/25 23:45 05/23/25 00:15 Sodium Chloride 0.9% IV 75 mls/hr On Hold: 05/23/25 11:22 .[id number] BRAD Administration Comment: Order held by Process Transfer Nicotine 1 patch 05/23/25 09:00 05/23/25 08:58 Nicotine 21 Mg Patch TRANSDERMA 1 patch On Hold: 05/23/25 11:22 DAILY BRAD Administration Comment: Order held by Process Transfer [facility] Anesthesia Medical History Hypertension Social History Smoking and tobacco/nicotine status: current every day tobacco/nicotine user (down to 1ppd) Data Anesthesia 05/23/25 01:40 05/23/25 01:40 Short CBC 05/22/25 05/23/25 Range/Units 18:52 01:40 WBC 12.28 H 12.78 H (3.29-11.43) 10^3/uL Hgb 15.00 14.30 (11.27-16.99) g/dL Hct 44.9 42.4 (37-53) % MCV 91.3 92.4 (82-101) fl Plt Count 231 231 (157-399) 10^3/cmm Neut % (Auto) 77.0 70.0 % Neut # (Auto) 9.45 H 8.95 H (1.8-7.7) 10^3/uL BMP 05/22/25 05/23/25 18:52 01:40 Sodium 137 136 Potassium 4.3 3.7 Chloride 102 102 Carbon Dioxide 26 24 BUN 15 12 Creatinine 0.7 0.5 L Glucose 240 H 196 H Calcium 9.0 8.7 Cardiac Enzymes 05/22/25 Range/Units 18:52 Creatine Kinase 40 (39-308) U/L Liver Function 05/22/25 05/23/25 Range/Units 18:52 01:40 Total Bilirubin 0.2 0.3 (0.15-1.2) mg/dL AST 11 9 (0-40) U/L ALT 15 13 (0-41) U/L Alkaline Phosphatase 94 88 (40-130) U/L Albumin 3.8 3.5 (3.5-5.2) g/dL Urine 05/22/25 Range/Units 19:14 Urine Color Yellow (Yellow) Urine Appearance Clear (CLEAR) Urine pH 6.0 (5-7) Ur Specific [place] 1.039 H (1.005-1.030) Urine Protein 2+ A (Negative) Urine Glucose (UA) 3+ H (Normal) Urine Ketones Trace (Negative) Urine Nitrate Negative (Negative) Urine Bilirubin Negative (Negative) Ur Leukocyte Esterase Negative (Negative) Urine RBC 0-2 (0-2) /hpf Urine WBC 6-10 (0-5) /hpf Coags 05/22/25 18:52 PT 13.10 INR 0.92 Cardiac Studies: Echocardiogram 03/20/24
[2025-05-23] MEDS: ceFAZolin 2,000 mg SDV 2000 MG IVP ×2 (11:51→20:10)
--- NOTE | 2025-05-23 13:23 | PM.OP ---
Operative Report Date of procedure: May 23, 2025 Pre-op diagnosis: Right femoral neck fracture Post-op diagnosis: same Procedure done: Right hip hip hemiarthroplasty Surgeon: Aashish Christine DO Estimated blood loss (mL): 25 Procedure: Right hip hemiarthroplasty Patient is brought to the operative suite after undergoing anesthesia was placed in the lower cubitus position. Right side is up. All areas impingement were well-padded. Patient was then prepped and draped in the normal sterile fashion. Skin incision was made over the right hip. IT band is split. The abductors and capsule were taken anteriorly. Saws used to cut the femoral neck proximally fingerbreadth above the lesser trochanter. The head was removed. Measured to be 49. Next tension was brought to the femur. The top of femur was prepped by using the box press operator followed by the canal finder. Followed by the lateralizer. Next the canal was broached to 6 using the [place] system. Size 6 stem was inserted. Head was 49 mm head with -4 neck length was placed. Hip was then reduced all to be stable in all positions. The capsule and abductors were repaired back to the bone with suture. And then the wound was closed with layered fashion with 0 Vicryl 2-0 Vicryl and Monocryl suture. Sterile dressings applied and patient is transferred to the PACU in stable condition.
--- NOTE | 2025-05-23 13:44 | XRR_ITS ---
PROCEDURE INFORMATION: Exam: XR Right Hip Exam date and time: 05/23/2025 1:47 PM Age: 64 years old Clinical indication: Device placement; Other: Right hip; Prior surgery; Surgery date: Post-operative (0-2 days); Additional info: Post op TECHNIQUE: Imaging protocol: Radiologic exam of the right hip. Views: 1 view hip with pelvis when performed. COMPARISON: CR (PELVIS, ) 05/22/2025 6:18 PM FINDINGS: Bones/joints: Status post right hip arthroplasty. Normal alignment. Immediate postoperative changes in the periarticular soft tissues as expected. Soft tissues: See Bones/joints finding. XR/XR hip RT 1V wo/[place] [id number] IMPRESSION: Status post right hip arthroplasty.
--- NOTE | 2025-05-23 13:55 | ANE.PACU2 ---
Inpatient post-anesthesia follow up: Airway intact: Yes Vital signs: Temperature 99.8 F Pulse Rate 79 Respiratory Rate 16 Blood Pressure 155/70 Pulse Oximetry 94 Oxygen Delivery Me thod Nasal Cannula Oxygen Flow Rate 99 Fraction of Inspir ed Oxygen Hydration adequate: Yes Nausea and vomiting: No Pain level: 1 Mental status: Baseline
--- NOTE | 2025-05-23 14:09 | PC.NURSE ---
1404 accepted into room 259-2 with Sultana RN at side and pts - pt remains on 4L NC at time of this nurses exit - no distress noted BP 144/80 - pulse 79 - 93% temp 98.1
--- NOTE | 2025-05-23 16:38 | P.PN_ITS ---
Subjective 2 Subjective: Patient was seen this morning, currently alert oriented x 3, follow commands, denies any dysuria, no flank pain, no abdominal pain, Vitals/I&O/Wt Last Vital Signs Temp 98.1 F 05/23/25 15:50 Pulse 74 05/23/25 15:50 Resp 18 05/23/25 15:50 BP 150/72 05/23/25 15:50 Pulse Ox 93 05/23/25 15:50 O2 Del Method Nasal Cannula 05/23/25 15:50 O2 Flow Rate 3 05/23/25 15:50 05/23/25 05/23/25 05/23/25 06:59 14:59 22:59 Intake Total 150 / 150 Output Total 1050 / 1050 Balance -900 / -900 Weight last 48 hrs Weight 75.523 kg Weight 76.113 kg Weight 74.843 kg Physical Exam 2 Const: COMMON NORMALS: no acute distress and patient oriented x3 Resp: COMMON NORMALS: normal respiratory effort, No retractions, No use of accessory muscles and clear to auscultation bilaterally AUSCULTATION: clear to auscultation bilaterally Cardio: COMMON NORMALS: regular rate, regular rhythm, S1 normal heart sound present and S2 normal heart sound present RATE: regular rate RHYTHM: r egular rhythm HEART SOUNDS: S1 normal heart sound present and S2 normal heart sound present GI: COMMON NORMALS: Normal to inspection, nondistended, normoactive bowel sounds present and non-tender Extremity: COMMON NORMALS: no pedal edema Neuro: COMMON NORMALS: patient oriented x3 Psych: COMMON NORMALS: mental status grossly normal Urinary Catheter Management: Naylor: Cath Placed During This Visit: yes Urinary Catheter Date of Insertion: 05/23/25 Urinary Catheter Time of Insertion: 12:16 Data 05/23/25 01:40 05/23/25 01:40 A&P Assessment and plan 1. Hypertension: Continue losartan add Norvasc 2. Type 2 diabetes mellitus: 3. Fracture of neck of right femur: 4. Hemiplegia as late effect of stroke: 5. Spastic hemiparesis of right dominant side: Plan: Right hip fracture - N.p.o. - Plan on surgical intervention today - Morphine for pain control - Heparin for DVT prophylaxis - Type 2 diabetes mellitus, A1c 8.6, low-dose on scale - Full code PDMP PDMP Reviewed: Not Reviewed Attestations 2 Medical Necessity Statement*: Patient requires hospitalization for right hip fracture, inpatient, greater than 2 midnights Diagnoses Hypertension I10 Type 2 diabetes mellitus E11.9 Fracture of neck of right femur S72.001A Hemiplegia as late effect of stroke I69.359 Spastic hemiparesis of right dominant side G81.11
[2025-05-24 04:00] VITALS: BP 150/79; PULSE 89; RESP 16; TEMP 36.8
[2025-05-24] MEDS: HYDROcodone-acetaminophen 5-325 mg Tablet 1 TAB PO ×4 (04:44→17:02)
[2025-05-24] MEDS: ceFAZolin 2,000 mg SDV 2000 MG IVP ×2 (04:44→12:20)
[2025-05-24 05:56] LABS: Hematocrit 39.4 % (37-53); Hemoglobin 13.10 g/dL (11.27-16.99); Mean Corpuscular HGB Conc 33.2 g/dL (30-55); Mean Corpuscular Hemoglobin 30.6 pg (27-33); Mean Corpuscular Volume 92.1 fl (82-101); Nucleated Red Blood Cells % 0 %; Platelet Count 193 10^3/cmm (157-399); Red Blood Count 4.28 10^6/uL (3.85-5.65); White Blood Count 14.20 10^3/uL (3.29-11.43)
[2025-05-24 06:19] LABS: Anion Gap 15.6 (5-19); Blood Urea Nitrogen 9 mg/dL (8-23); Calcium 8.4 mg/dL (8.5-10.5); Carbon Dioxide 25 mmol/L (22-29); Chloride 101 mmol/L (98-107); Creatinine Clr Calc Pharmacy 93.1417; Glucose 205 mg/dL (65-115); Osmolality Calculated 291 mOsm/kg (285-295); Potassium 3.6 mmol/L (3.5-5.1); Sodium 138 mmol/L (136-145)
[2025-05-24 08:04] VITALS: BP 159/73; PULSE 79; RESP 17; TEMP 37.4; O2SAT 93
--- NOTE | 2025-05-24 08:47 | XR_ITS ---
WS: [id number] Portable AP upright chest, 05/24/2025 Clinical Data: leukocytosis Comparison: Portable chest, 05/22/2025 Findings: No nodules, masses or effusions are seen. The heart is normal. The pulmonary vascularity is not increased. No pneumonia or pneumothorax is seen. The aortic arch shows tortuosity. The diaphragms are flattened. There is minimal patchy opacity in the left lower lobe which probably represents atelectasis. XR/XR chest 1V portable [id number] Impression: Atherosclerosis and hyperinflation.
[2025-05-24 09:24] LABS: Alanine Aminotransferase 12 U/L (0-41); Albumin Level 3.6 g/dL (3.5-5.2); Alkaline Phosphatase 83 U/L (40-130); Aspartate Amino Transferase 13 U/L (0-40); Globulin 2.9 g/dL (1.3-4.6); Lipase 11 U/L (13-60); Total Protein 6.5 g/dL (6.6-8.7)
[2025-05-24 09:29] LABS: Procalcitonin 0.07 ng/mL (0-0.5)
--- NOTE | 2025-05-24 09:52 | PC.CHAP ---
Pastoral Care Encounter/Spiritual Assessment Type of Contact [] Declined special trackwork blacksmith visit [] Patient/Family/Request visit [] Outpatient visit [] Follow-up visit [] Physician referral [] Code/Alert [x] Routine visit [] Staff referral [] Actively dying [] Patient sleeping [] Family support [] [] Out of room [] Palliative care [] [] Receiving care in room [] Pre-surgical visit [] Trauma [] Long length of stay [] ICU visit [] Other: Relational/Emotional Strength [x] Patient feels connected with others/family/visitors/staff [] Distress [] Loneliness/isolation [] Abandonment Spirituality of Patient [x] Person of Rupinder [] Attends Yazidi of their Rupinder [x] Believes in Prayer [] Reads Bible or Confucianist materials [] There are Spiritual issues to be addressed 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 Sales Representative Interventions [x] Prayer [x] Active listening [] Non-anxious presence [x] Spiritual/emotional support [] Crisis/trauma care [] Spiritual counseling [] Bereavement support [] Provided bereavement packet [] Provided Bible/devotional materials [] Provided toy/stuffed animal, coloring book to patient or family member [] Provided Communion [] Anointing/[place] [] Salvation [x] Completed spiritual assessment [] Other: Impact on Illness or Injury [] Angry [] Fearful [] Anxious [] Often cries [] Exhaustion [] Unable to work [] Unable to attend rastafari [] Unable to walk/stand [] Unable to read [] Unable to drive [] Unable to eat/drink [] Unable to sleep [] Unable to be with family [] Patient intubated [] Other: Summary Time spent with patient 5 min
[2025-05-24 11:43] VITALS: BP 155/70; PULSE 79; RESP 16; TEMP 37.7; O2SAT 94
[2025-05-24] MEDS: heparin 5,000 unit/mL INJ 1 mL 5000 UNIT SUBCUT ×2 (12:16→23:51)
--- NOTE | 2025-05-24 14:55 | P.PN_ITS ---
Subjective 2 Subjective: Patient was seen this morning, currently alert oriented x 3, following all commands, denies any fevers, chills, no cough no abdominal pain, no lightheadedness, no dizziness, no new rashes, discussed his leukocytosis, denies any diarrhea, discussed further workup, he is in agreement, discussed PT OT Vitals/I&O/Wt Last Vital Signs Temp 99.8 F H 05/24/25 11:43 Pulse 79 05/24/25 11:43 Resp 16 05/24/25 11:43 BP 155/70 05/24/25 11:43 Pulse Ox 94 05/24/25 11:43 O2 Del Method Nasal Cannula 05/24/25 11:43 O2 Flow Rate 99 05/24/25 04:00 05/23/25 05/24/25 05/24/25 22:59 06:59 14:59 Intake Total 1748 / 1898 840 / 840 Output Total 200 / 1250 1000 / 2250 300 / 300 Balance 1548 / 648 -1000 / -352 540 / 540 Weight last 48 hrs Weight 76.232 kg Weight 75.523 kg Weight 76.113 kg Weight 74.843 kg Physical Exam 2 Const: COMMON NORMALS: no acute distress and patient oriented x3 Resp: COMMON NORMALS: normal respiratory effort, No retractions, No use of accessory muscles and clear to auscultation bilaterally AUSCULTATION: clear to auscultation bilaterally Cardio: COMMON NORMALS: regular rate, regular rhythm, S1 normal heart sound present and S2 normal heart sound present RATE: regular rate RHYTHM: r egular rhythm HEART SOUNDS: S1 normal heart sound present and S2 normal heart sound present GI: COMMON NORMALS: Normal to inspection, nondistended, normoactive bowel sounds present and non-tender Extremity: COMMON NORMALS: no pedal edema Neuro: COMMON NORMALS: patient oriented x3 Psych: COMMON NORMALS: mental status grossly normal Urinary Catheter Management: Naylor: Cath Placed During This Visit: yes Reason for Continuing Indwelling Catheter: Required Immobilization for Trauma or Surgery or Anesthesia Urinary Catheter Date of Insertion: 05/23/25 Urinary Catheter Time of Insertion: 12:16 Data 05/24/25 05:26 05/24/25 05:26 Micro: Microbiology 05/24/25 09:15 Blood Culture - Preliminary Blood SPECIMEN COLLECTED 09/03/25 09:11 Blood Culture - Preliminary Blood SPECIMEN COLLECTED A&P Assessment and plan 1. Hypertension: Continue losartan add Norvasc 2. Type 2 diabetes mellitus: 3. Fracture of neck of right femur: 4. Hemiplegia as late effect of stroke: 5. Spastic hemiparesis of right dominant side: 6. Leukocytosis: Plan: Right hip fracture - S/p surgical invention - Morphine for pain control - Heparin for DVT prophylaxis - Type 2 diabetes mellitus, A1c 8.6, low-dose on scale - Full code History of CVA, with residual right-sided deficits Leukocytosis - Monitor for fevers CRP, Pro-Jm, sed rate, chest x-ray, UA - PDMP PDMP Reviewed: Not Reviewed Attestations 2 Medical Necessity Statement*: Patient requires hospital sedation for right hip fracture, status post surgical invention, leukocytosis Diagnoses Hypertension I10 Type 2 diabetes mellitus E11.9 Fracture of neck of right femur S72.001A Hemiplegia as late effect of stroke I69.359 Spastic hemiparesis of right dominant side G81.11 Leukocytosis D72.829
[2025-05-24 16:00] VITALS: BP 171/78; PULSE 73; RESP 17; TEMP 37.6; O2SAT 96
[2025-05-24 19:42] VITALS: RESP 18
[2025-05-24] MEDS: morphine 4 mg/mL SDV 1 mL IVP (19:42)
[2025-05-24 20:00] VITALS: BP 151/80; PULSE 88; RESP 16; TEMP 37.1; O2SAT 93
[2025-05-24 20:01] LABS: Glucose Urine UA 3+ (Normal); Nitrate Urine Negative (Negative)
[2025-05-24 20:06] LABS: Add Urine Microscopic? YES
[2025-05-24 20:08] LABS: Specific Gravity, Urine 1.035 (1.005-1.030); UA Slide Review UA Slide Review Perf
[2025-05-25] VITALS: BP 155/71; PULSE 87; RESP 17; TEMP 37.7; O2SAT 92
[2025-05-25] MEDS: HYDROcodone-acetaminophen 5-325 mg Tablet 1 TAB PO ×5 (00:30→21:36)
[2025-05-25 04:00] VITALS: BP 152/72; PULSE 82; RESP 17; TEMP 36.9; O2SAT 95
[2025-05-25 04:18] LABS: Hematocrit 37.5 % (37-53); Hemoglobin 12.50 g/dL (11.27-16.99); Mean Corpuscular HGB Conc 33.3 g/dL (30-55); Mean Corpuscular Hemoglobin 31.2 pg (27-33); Mean Corpuscular Volume 93.5 fl (82-101); Nucleated Red Blood Cells % 0 %; Platelet Count 189 10^3/cmm (157-399); Red Blood Count 4.01 10^6/uL (3.85-5.65); White Blood Count 14.87 10^3/uL (3.29-11.43)
[2025-05-25 04:49] LABS: Anion Gap 12.6 (5-19); Blood Urea Nitrogen 11 mg/dL (8-23); Calcium 8.6 mg/dL (8.5-10.5); Carbon Dioxide 27 mmol/L (22-29); Chloride 99 mmol/L (98-107); Creatinine Clr Calc Pharmacy 93.1417; Glucose 187 mg/dL (65-115); Osmolality Calculated 284 mOsm/kg (285-295); Potassium 3.6 mmol/L (3.5-5.1); Sodium 135 mmol/L (136-145)
[2025-05-25 07:34] VITALS: BP 160/73; PULSE 92; RESP 21; TEMP 37.1; O2SAT 91
--- NOTE | 2025-05-25 07:47 | CT_ITS ---
WS: [id number] CT CHEST, ABDOMEN AND PELVIS NONCONTRAST HISTORY: leukocytosis? TECHNIQUE: Contiguous 5 mm axial imaging performed through the chest, abdomen and pelvis without IV contrast, oral contrast has Been provided. Coronal and sagittal reformats chest. Coronal and sagittal reformats through the abdomen and pelvis. All CT scans at [facility] use at least one of these dose optimization techniques: automated exposure control; mA and/or kV adjustment per patient size (includes targeted exams where dose is matched to clinical indication); or iterative reconstruction. CONTRAST: None DLP: 784.66 mGy.cm COMPARISON: None available. Chest CT: Hyperexpanded lungs with paraseptal and centrilobular emphysema. Mild dependent changes at the lung bases. There are a few scattered very tiny micronodules. No pneumothorax. No lobar collapse. No pneumonia. Heart size is slightly enlarged. Atherosclerosis thoracic aorta. Normal size pulmonary artery. There are several mediastinal and hilar lymph nodes which do not appear pathologic. Abdomen CT: Noncontrast evaluation of the liver, spleen and gallbladder are negative. Negative pancreas. Bilateral adrenal hyperplasia, LEFT greater than RIGHT. Mild perinephric stranding around each kidney. No renal obstruction. Moderate atherosclerosis aorta. Calcification extends into the mesenteric arteries. Stomach is distended with food products. No small bowel obstruction. No colon obstruction. There is retroperitoneal air identified posterior to the cecum and ascending colon and extending along the RIGHT iliac is muscle. There is soft tissue infiltrating along the RIGHT psoas muscle which is consistent with a hematoma. Hematoma involves the psoas and iliacus muscle. Hematoma is contiguous with the RIGHT inguinal region. There is also air in the surgical site over the RIGHT hip. Appendix is not definitely identified. Air is in the location of the appendix. Potentially this could represent There is air infiltrating through the soft tissues of the RIGHT hip at the surgical site and along the gluteus fascial planes. There is additional soft tissue stranding in the RIGHT pelvis along the acetabulum. Pelvic CT: No free fluid in the pelvis. Soft tissue stranding from postoperative changes and possible blood products along the RIGHT acetabulum. Air and postoperative changes along with hematoma centered along the RIGHT hip recent arthroplasty. Recent RIGHT hip arthroplasty. Schmorl's node superior endplate of L4. CT/[place] [id number] IMPRESSION: 1. Recent post RIGHT hip arthroplasty. Postsurgical changes in the soft tissue s around the RIGHT hip and RIGHT pelvis of hematoma, edema and subcutaneous air . 2. Small retroperitoneal hematoma on the RIGHT. 3. Retroperitoneal air is noted within the RIGHT pelvis. This area extends karol ng the iliacus muscle into the retroperitoneum posterior to the ascending colo n. This is also the site of the retroperitoneal hematoma. Although it is unusua l this may be air dissecting through the soft tissues from the RIGHT hip arthro plasty. With elevated white blood count perforation of the tract, especially in volving the ascending colon should be considered. Necrotizing fasciitis is a ra re complication associated with postsurgical changes. 4. No pneumonia. Mild dependent changes at the lung bases. Attempted to notify Bernard Hurd MD at 05/25/2025 9:39 AM. Attempted to notify Bernard Hurd MD at 05/25/2025 9:57 AM. Unsuccessful attempts to notify Dr. Hurd about this report.
--- NOTE | 2025-05-25 08:11 | PM.PN ---
Subjective Subjective: Patient doing well was up ambulating yesterday pain is controlled Vitals/I&O/Wt Last Vital Signs Temp 98.7 F 05/25/25 07:34 Pulse 92 05/25/25 07:34 Resp 21 H 05/25/25 07:34 BP 160/73 05/25/25 07:34 Pulse Ox 91 05/25/25 07:34 O2 Del Method Nasal Cannula 05/25/25 07:34 O2 Flow Rate 2 05/25/25 04:00 05/24/25 05/25/25 05/25/25 22:59 06:59 14:59 Intake Total 360 / 1200 Output Total 600 / 900 Balance -240 / 300 Weight last 48 hrs Weight 173 lb 3 oz Weight 168 lb 1 oz Physical Exam Narrative: Dressing clean dry and intact Urinary Catheter Management: Naylor: Cath Placed During This Visit: yes Reason for Continuing Indwelling Catheter: Other Urinary Catheter Date of Insertion: 05/23/25 Urinary Catheter Time of Insertion: 12:16 Data 05/25/25 02:57 05/25/25 02:57 Micro: Microbiology 05/24/25 09:15 Blood Culture - Preliminary Blood SPECIMEN COLLECTED 05/24/25 09:11 Blood Culture - Preliminary Blood SPECIMEN COLLECTED A&P Assessment and plan 1. Fracture of neck of right femur: Status post hip hemiarthroplasty PDMP PDMP Reviewed: Not Reviewed Attestations Medical Necessity Statement*: Per primary service Coding Level of Care Code Acute Code for [facility] Fwd Diagnoses Fracture of neck of right femur S72.001A
[2025-05-25] MEDS: morphine 4 mg/mL SDV 1 mL IVP (10:05)
--- NOTE | 2025-05-25 10:16 | USR_ITS ---
PROCEDURE INFORMATION: Exam: US Duplex Lower Extremity Veins, Bilateral Exam date and time: 05/25/2025 5:39 PM Age: 64 years old Clinical indication: Swelling (edema) of limb; Lower extremity, bilateral; Prior surgery; Surgery date: Post-operative (0-2 days); Surgery type: RT hip TECHNIQUE: Imaging protocol: Real-time duplex ultrasound of the bilateral extremities with 2-D winkler scale, color Doppler flow and spectral waveform analysis including responses to compression and other maneuvers (when performed) with image documentation. Complete exam focused on the lower extremity veins. COMPARISON: [place] [id number] 05/25/2025 8:34 AM FINDINGS: Right deep veins: Unremarkable. The common femoral, femoral, proximal profunda femoral and popliteal veins are patent without thrombus. Normal Doppler waveforms. Normal compressibility and/or augmentation response. Left deep veins: Unremarkable. The common femoral, femoral, proximal profunda femoral and popliteal veins are patent without thrombus. Normal Doppler waveforms. Normal compressibility and/or augmentation response. Superficial veins: Greater saphenous veins at the saphenofemoral junctions are patent bilaterally without thrombus. Soft tissues: Unremarkable. US/[place] [id number] IMPRESSION: No evidence of deep vein thrombosis in the bilateral lower extremities.
--- NOTE | 2025-05-25 10:28 | P.CONIM_ITS ---
Providers/Reason For Consult 2 Consulting Physician/Specialty*: Dr. Aquino general surgery Reason for Consult*: Rule out intra-abdominal pathology Attending Physician: Bernard Hurd MD Primary Care Provider: TEMO Call History of Present Illness History of Present Illness Antwan Patel is a 64 year old male whom surgery was consulted to rule out acute intra-abdominal pathology. Patient had a right hip arthroplasty. Given persistent leukocytosis medicine performed a CT scan. CT scan shows air around the right hip surgical site and in the right retroperitoneum. Small right retroperitoneal hematoma. There is no intraperitoneal air. Patient is not complaining of any abdominal pain. Patient has been tolerating a regular diet and having bowel function. On exam abdomen is completely benign and nontender. Medications/Allergies Home Medications ?Medication ?Instructions ?Recorded ?Confirmed ?Last Taken ?Type glucagon HCl 1 mg solution for 1 mg IM Q20M PRN hypogl ycemia #1 ea 03/23/24 05/23/25 Unknown Rx injection (Glucagon (HCl) Emergency Kit) glucometer testing kit #1 ea 03/23/24 05/23/25 Unkn own Rx Allergies Allergy/AdvReac Type Severity Reaction Status Date / Time No Known Allergies Allergy Verified 05/15/25 14:00 Current Medications Generic Name Dose Route Start Last Admin Trade Name Freq PRN Reason Stop Dose Admin Hydrocodone Bitart/Acetaminophen 1 tab 05/22/25 23:39 05/25/25 06:39 Hydrocodone-Acetaminophen 5-325 Mg Tablet PO 1 tab Q4H PRN Administration MODERATE TO SEVERE PAIN Atorvastatin Calcium 40 mg 05/24/25 21:00 05/24/25 21:08 Atorvastatin 40 Mg Tablet PO 40 mg BEDTIME BRAD Administration Docusate Sodium 100 mg 05/24/25 17:00 05/25/25 04:25 Docusate Sodium 100 Mg Capsule PO 100 mg BID@0500,1700 BRAD Administration Sodium Chloride 1,000 mls @ 75 mls/hr 05/22/25 23:45 05/23/25 19:20 Sodium Chloride 0.9% IV Infused On Hold: 05/23/25 11:22 .[id number] BRAD Infusion Comment: Order held by Process Transfer Insulin Human Lispro 0 unit 05/23/25 12:00 05/25/25 07:58 Insulin Lispro 100 Unit/1 Ml SUBCUT 2 unit TIDWM BRAD Administration Protocol Morphine Sulfate 4 mg 05/22/25 23:39 05/25/25 10:05 Morphine 4 Mg/Ml Sdv 1 Ml IVP 4 mg Q4H PRN Administration SEVERE PAIN Nicotine 1 patch 05/23/25 09:00 05/25/25 07:58 Nicotine 21 Mg Patch TRANSDERMA 1 patch DAILY BRAD Administration Tamsulosin HCl 0.4 mg 05/25/25 10:00 05/25/25 09:15 Tamsulosin 0.4 Mg Capsule PO 0.4 mg DAILY BRAD Administration PFSH Acute 2 PFSH: Medical History (Updated 05/25/25 @ 18:42 by Bernard Hurd MD) Hypertension Social History Smoking and tobacco/nicotine status: current every day tobacco/nicotine user (down to 1ppd) Vitals/I&O/Wt Last Vital Signs Temp 98.7 F 05/25/25 07:34 Pulse 92 05/25/25 07:34 Resp 21 H 05/25/25 07:34 BP 160/73 05/25/25 07:34 Pulse Ox 91 05/25/25 07:34 O2 Del Method Nasal Cannula 05/25/25 07:34 O2 Flow Rate 2 05/25/25 04:00 05/24/25 05/25/25 05/25/25 22:59 06:59 14:59 Intake Total 360 / 1200 360 / 360 Output Total 600 / 900 Balance -240 / 300 360 / 360 Weight last 48 hrs Weight 173 lb 3 oz Weight 168 lb 1 oz Physical Exam 2 Narrative: Chest: Unlabored breathing room air. No lymphadenopathy. Heart: Regular rate and rhythm. Abdomen: Soft, nontender, nondistended. No masses or lymphadenopathy. Urinary Catheter Management: Naylor: Cath Placed During This Visit: yes Reason for Continuing Indwelling Catheter: Other Urinary Catheter Date of Insertion: 05/23/25 Urinary Catheter Time of Insertion: 12:16 Data 05/26/25 05:00 05/26/25 05:00 Micro: Microbiology 05/24/25 09:15 Blood Culture - Preliminary Blood NEGATIVE TO DATE 05/24/25 09:11 Blood Culture - Preliminary Blood NEGATIVE TO DATE A&P Assessment and plan 1. Retroperitoneal air: Plan: 64-year-old male whom surgery was consulted to rule out acute intra- abdominal pathology. CT scan changes most consistent with postop changes from right hip arthroplasty. Alternatively findings could represent an infected retroperitoneal hematoma. Clinical picture is not consistent with appendicitis or any acute intra-abdominal pathology. Consider holding anticoagulation given right retroperitoneal hematoma. Rest of care per hospitalist and orthopedic surgery. PDMP PDMP Reviewed: Not Reviewed Coding Level of Care Code 28083 Diagnoses Retroperitoneal air K66.8
--- NOTE | 2025-05-25 10:29 | PM.MISC ---
Miscellaneous Note Note: Reviewed CT scan. Air in the right hip and right RP most consistent with postop changes from arthoplasty. Patient is asymptomatic from a GI perspective. Alternatively this could represent an infected right RP hematoma. No indication for any surgical intervention. Full consult note to follow.
[2025-05-25 11:00] LABS: Hematocrit 38.8 % (37-53); Hemoglobin 13.00 g/dL (11.27-16.99)
[2025-05-25 11:09] LABS: INR 1.01 (0.8-1.2); Prothrombin Time 14.00 SECONDS (12.1-14.9)
[2025-05-25 11:45] VITALS: BP 186/81; PULSE 87; RESP 15; TEMP 37.3; O2SAT 93
[2025-05-25] MEDS: polyethylene glycol 3350 Pkt 17 gm PO (12:19)
[2025-05-25] MEDS: piperacillin-tazobactam 3.375 GM in sodium chloride 0.9% (plus) 50 ML IV ×2 (12:22→19:40)
--- NOTE | 2025-05-25 13:52 | P.PN_ITS ---
Subjective 2 Subjective: Patient was seen this morning, currently alert oriented x 3, follow commands, he tells me that he had a restless night, pain is under control, denies any fevers, chills, cough, nausea, vomiting, no abdominal pain he has not had a bowel movement, but is passing gas, no dysuria, no hematuria, no flank pain - We discussed his leukocytosis, he marla es any fevers, denies any chills, no sore throat, no tender lymph nodes, no chest pain, shortness of breath, no neck pain or neck stiffness, discussed doing further workup and inpatient monitoring - CT chest abdomen pelvis ordered with r ambreen inflammatory markers - CT/[place] [id number] IMPRESSION: 1. Recent post RIGHT hip arthroplasty. Postsurgical changes in the soft tissues around the RIGHT hip and RIGHT pelvis of hematoma, edema and subcutaneous air. 2. Small retroperitoneal hematoma on th e RIGHT. 3. Retroperitoneal air is noted within the RIGHT pelvis. This area extends along the iliacus muscle into the retroperitoneum posterior to the ascending colon. This is also the site of the retroperitoneal hematoma. Although it is unusual this may be air dissecting through the soft tissues from the RIGHT hip arthroplasty. With elevated white blood count perforation of the tract, especially involving the ascending colon should be considered. Necrotizing fasciitis is a rare complication associated with postsurgical changes. 4. No pneumonia. Mild dependent changes at the lung bases. - Discussed case with Dr. Murphy, randell sed retroperitoneal hematoma, retroperitoneal air, discussed sources possibly being the right hip, but appendix was not seen well on the CT scan, did discuss patient's fall that brought him to the hospital, right hip fracture, but abdominal exam is benign -I discussed the case with general surge ry, discussed patient is abdominal exam being benign, reason for CT scan, leukocytosis, General Surgery to review the image - I reexamined patient, had a detailed d iscussion with him, he adamantly denies any abdominal pain, no nausea, no vomiting, he is passing gas from below, skin examination, he does have a superficial hematoma of bilateral gluteal muscles, some point tenderness, - He reports a ground-level fall - Again abdominal examination was benign , abdomen soft, nondistended, nontender, good bowel sounds, no guarding, no rebound, no rigidity Vitals/I&O/Wt Last Vital Signs Temp 99.2 F 05/25/25 11:45 Pulse 87 05/25/25 11:45 Resp 15 05/25/25 11:45 BP 186/81 05/25/25 11:45 Pulse Ox 93 05/25/25 11:45 O2 Del Method Nasal Cannula 05/25/25 11:45 O2 Flow Rate 2 05/25/25 04:00 05/24/25 05/25/25 05/25/25 22:59 06:59 14:59 Intake Total 360 / 1200 600 / 600 Output Total 600 / 900 500 / 500 Balance -240 / 300 100 / 100 Weight last 48 hrs Weight 78.557 kg Weight 76.232 kg Physical Exam 2 Const: COMMON NORMALS: no acute distress and patient oriented x3 Eye: COMMON NORMALS: Equal, round and reactive pupils present PUPIL: Yes Equal, round and reactive pupils present Resp: COMMON NORMALS: normal respiratory effort, No retractions, No use of accessory muscles and clear to auscultation bilaterally AUSCULTATION: clear to auscultation bilaterally Cardio: COMMON NORMALS: regular rate, regular rhythm, S1 normal heart sound present and S2 normal heart sound present RATE: regular rate RHYTHM: r egular rhythm HEART SOUNDS: S1 normal heart sound present and S2 normal heart sound present GI: COMMON NORMALS: Normal to inspection, nondistended, normoactive bowel sounds present and non-tender OTHER: No guarding, no rebound, rigidity Extremity: COMMON NORMALS: no calf tenderness and no pedal edema Neuro: COMMON NORMALS: patient oriented x3 Psych: COMMON NORMALS: mental status grossly normal Skin: NARRATIVE SKIN EXAM: Patient does have a superficial hematoma over bilateral gluteal muscles Urinary Catheter Management: Naylor: Cath Placed During This Visit: yes Reason for Continuing Indwelling Catheter: Other Urinary Catheter Date of Insertion: 05/23/25 Urinary Catheter Time of Insertion: 12:16 Data 05/25/25 10:48 05/25/25 02:57 Micro: Microbiology 05/24/25 09:15 Blood Culture - Preliminary Blood NEGATIVE TO DATE 05/24/25 09:11 Blood Culture - Preliminary Blood NEGATIVE TO DATE A&P Assessment and plan 1. Hypertension: Continue losartan add Norvasc 2. Type 2 diabetes mellitus: 3. Fracture of neck of right femur: 4. Hemiplegia as late effect of stroke: 5. Spastic hemiparesis of right dominant side: 6. Leukocytosis: 7. Retroperitoneal air: 8. Retroperitoneal hematoma: Plan: Right hip fracture - S/p surgical invention - Morphine for pain control - Heparin for DVT prophylaxis - Type 2 diabetes mellitus, A1c 8.6, low-dose on scale - Full code Fall There is retroperitoneal air identified posterior to the cecum and ascending colon and extending along the RIGHT iliac is muscle. There is soft tissue infiltrating along the RIGHT psoas muscle which is consistent with a hematoma. Hematoma involves the psoas and iliacus muscle. Hematoma is contiguous with the RIGHT inguinal region. There is also air in the surgical site over the RIGHT hip. - Multiple hematomas as above - Hold blood thinners Retroperitoneal hematoma - Likely associate with fall - Monitor hemoglobin every 6 hours - Hold Lovenox, hold aspirin Retroperitoneal air - CT/[place] [id number] IMPRESSION: 1. Recent post RIGHT hip arthroplasty. Postsurgical changes in the soft tissues around the RIGHT hip and RIGHT pelvis of hematoma, edema and subcutaneous air. 2. Small retroperitoneal hematoma on the RIGHT. 3. Retroperitoneal air is noted within the RIGHT pelvis. This area extends along the iliacus muscle into the retroperitoneum posterior to the ascending colon. This is also the site of the retroperitoneal hematoma. Although it is unusual this may be air dissecting through the soft tissues from the RIGHT hip arthroplasty. With elevated white blood count perforation of the tract, especially involving the ascending colon should be considered. Necrotizing fasciitis is a rare complication associated with postsurgical changes. 4. No pneumonia. Mild dependent changes at the lung bases. - Discussed case with Dr. Murphy, discussed retroperitoneal hematoma, retroperitoneal air, discussed sources possibly being the right hip, but appendix was not seen well on the CT scan, did discuss patient's fall that brought him to the hospital, right hip fracture, but abdominal exam is benign -I discussed the case with general surgery, discussed patient is abdominal exam being benign, reason for CT scan, leukocytosis, General Surgery to reviewed the images, discussed radiology's concerns as appendix is not seen, retroperitoneal air represents possible ruptured appendix, or from ascending colon - Discussed abdominal examination being benign, patient clinically not having abdominal pain, passing gas, but has not had a bowel movement as of yet, no lack of appetite hemodynamically stable, recent right hip surgery - After discussion with general surgery, they feel that here is likely from patient's right hip surgery, and retroperitoneal hematoma likely from fall, but they would review the case and consult - Did recommend starting IV antibiotics for concerns for infected retroperitoneal hematoma which I have started patient on Zosyn, History of CVA, with residual right-sided deficits Leukocytosis - Monitor for fevers CRP, Pro-Jm, sed rate, chest x-ray, UA - As above PDMP PDMP Reviewed: Not Reviewed Attestations 2 Medical Necessity Statement*: Patient requires hospitalization for retroperitoneal air, retroperitoneal hematoma, right hip fracture Diagnoses Hypertension I10 Type 2 diabetes mellitus E11.9 Fracture of neck of right femur S72.001A Hemiplegia as late effect of stroke I69.359 Spastic hemiparesis of right dominant side G81.11 Leukocytosis D72.829 Retroperitoneal air K66.8 Retroperitoneal hematoma K68.3
[2025-05-25 13:55] LABS: Procalcitonin 0.16 ng/mL (0-0.5)
[2025-05-25 15:50] VITALS: BP 167/75; PULSE 96; RESP 18; TEMP 37.1; O2SAT 91
[2025-05-25 16:10] LABS: Hematocrit 38.8 % (37-53); Hemoglobin 13.00 g/dL (11.27-16.99)
[2025-05-25] MEDS: lactulose oral liq 20 gm/30 mL UDC PO (19:40)
[2025-05-25 20:00] VITALS: BP 166/77; PULSE 95; RESP 16; TEMP 36.6; O2SAT 90
[2025-05-26] VITALS (7 sets, daily range): BP systolic 122–181; BP diastolic 67–89; PULSE 81–102; RESP 15–22; TEMP 36.7–37.7; O2SAT 90–92
[2025-05-26] LABS: Hematocrit 38.2 % (37-53); Hemoglobin 13.00 g/dL (11.27-16.99)
[2025-05-26] MEDS: piperacillin-tazobactam 3.375 GM in sodium chloride 0.9% (plus) 50 ML IV ×3 (03:56→20:14)
[2025-05-26] MEDS: HYDROcodone-acetaminophen 5-325 mg Tablet 1 TAB PO ×4 (03:56→20:14)
[2025-05-26 05:31] LABS: Hematocrit 36.5 % (37-53); Hemoglobin 12.40 g/dL (11.27-16.99); Mean Corpuscular HGB Conc 34.0 g/dL (30-55); Mean Corpuscular Hemoglobin 31.4 pg (27-33); Mean Corpuscular Volume 92.4 fl (82-101); Nucleated Red Blood Cells % 0 %; Platelet Count 210 10^3/cmm (157-399); Red Blood Count 3.95 10^6/uL (3.85-5.65); White Blood Count 13.40 10^3/uL (3.29-11.43)
[2025-05-26 05:58] LABS: Procalcitonin 0.13 ng/mL (0-0.5)
[2025-05-26 06:00] LABS: Anion Gap 15.6 (5-19); Blood Urea Nitrogen 11 mg/dL (8-23); Calcium 8.6 mg/dL (8.5-10.5); Carbon Dioxide 25 mmol/L (22-29); Chloride 100 mmol/L (98-107); Creatinine Clr Calc Pharmacy 93.3630; Glucose 209 mg/dL (65-115); Osmolality Calculated 290 mOsm/kg (285-295); Potassium 3.6 mmol/L (3.5-5.1); Sodium 137 mmol/L (136-145)
--- NOTE | 2025-05-26 09:00 | CT_ITS ---
WS: [id number] CT ABDOMEN AND PELVIS WITH CONTRAST HISTORY: retroperitoneal air, hematoma, appendix TECHNIQUE: Imaging performed of the abdomen and pelvis with IV contrast. Single phase imaging of the abdomen. Coronal and sagittal reformats are submitted. All CT scans at [facility] use at least one of these dose optimization techniques: automated exposure control; mA and/or kV adjustment per patient size (includes targeted exams where dose is matched to clinical indication); or iterative reconstruction. IV CONTRAST: Omnipaque 350; 100 mL IV. Oral contrast: No DLP: 555.58 mGy.cm COMPARISON: 05/25/2025 Lower thorax: Hyperinflated lung bases with dependent changes posteriorly. Heart is normal size. No hiatal hernia. Liver/biliary system: Normal size with no intrahepatic dilatation. Gallbladder: Normal. No gallstones or wall thickening. No pericholecystic fluid. Pancreas: Normal size pancreas and pancreatic duct. No adjacent inflammation. Spleen: Normal size spleen. No mass or infarct. Adrenal glands: Bilateral mild adrenal gland hyperplasia. Right kidney: Normal. Left kidney: Normal size kidney. 8 mm cortical cyst mid kidney. No obstruction. Aorta: Mild atherosclerosis with no aneurysm. Lymphadenopathy: None. Free fluid: None. GI tract: Nondistended stomach. No small bowel obstruction. No colon obstruction. The appendix is not identified. Reidentified is the air in the RIGHT retroperitoneum. The amount of retroperitoneal air does appear to have slightly improved. There is also been improvement in the changes along the RIGHT iliopsoas and iliac is muscle suggesting improving inflammation or decreasing retroperitoneal hematoma. No abscess is identified. Abdominal wall: Fat containing umbilical hernia. Pelvis: Well-distended urinary bladder. No free fluid. Bones: Patient is status post RIGHT hip arthroplasty. There is significant soft tissue edema, hematoma and air at the surgical site. Loss of the normal fat planes. There is no focal fluid collection although the amount of soft tissue edema and surgical changes has not improved and may have slightly progressed. CT/CT abdomen pelvis w con* [id number] IMPRESSION: 1. Small amount of improvement in the RIGHT lower quadrant retroperitoneal air with improving retroperitoneal soft tissue. Suspect improving retroperitoneal hematoma. 2. The appendix is not identified. Cannot completely exclude perforated append ix. No abscess has developed. 3. No abscess or free fluid in the pelvis. 4. Postsurgical changes at the RIGHT hip are reidentified. There is continued air with edema and postoperative hematoma. No significant improvement in the am ount of subcutaneous air. There is no abscess. Cannot completely exclude soft t issue infection at the surgical site but these changes also can be seen with no rmal postoperative process.
[2025-05-26] MEDS: iohexol 350 mg/mL 500 mL Btl (per mL) IV (09:48)
[2025-05-26 10:30] LABS: Hematocrit 37.5 % (37-53); Hemoglobin 12.40 g/dL (11.27-16.99)
--- NOTE | 2025-05-26 11:06 | P.PN_ITS ---
Subjective 2 Subjective: No acute events overnight No abdominal pain Vitals/I&O/Wt Last Vital Signs Temp 98.6 F 05/26/25 08:00 Pulse 95 05/26/25 08:00 Resp 15 05/26/25 08:00 BP 157/78 05/26/25 08:00 Pulse Ox 90 05/26/25 08:00 O2 Del Method Room Air 05/26/25 08:00 O2 Flow Rate 2 05/25/25 04:00 05/25/25 05/26/25 05/26/25 22:59 06:59 14:59 Intake Total 290 / 890 50 / 940 50 / 50 Output Total 750 / 1250 475 / 1725 Balance -460 / -360 -425 / -785 50 / 50 Weight last 48 hrs Weight 169 lb Weight 173 lb 3 oz Physical Exam 2 Narrative: Chest: Unlabored breathing room air. No lymphadenopathy. Heart: Regular rate and rhythm. Abdomen: Soft, nontender, nondistended. No masses or lymphadenopathy. Urinary Catheter Management: Naylor: Cath Placed During This Visit: yes Reason for Continuing Indwelling Catheter: Other Urinary Catheter Date of Insertion: 05/23/25 Urinary Catheter Time of Insertion: 12:16 Data 05/27/25 04:37 05/27/25 04:37 Micro: Microbiology 05/24/25 09:15 Blood Culture - Preliminary Blood NEGATIVE TO DATE 05/24/25 09:11 Blood Culture - Preliminary Blood NEGATIVE TO DATE A&P Assessment and plan 1. Retroperitoneal air: Plan: 64-year-old male whom surgery was consulted to rule out acute intra- abdominal pathology. No abdominal pain. No surgical concerns. Rest of care per hospitalist PDMP PDMP Reviewed: Not Reviewed Attestations 2 Medical Necessity Statement*: N/A Coding Level of Care Code 36110 Diagnoses Retroperitoneal air K66.8
[2025-05-26 12:10] LABS: Glucose Urine UA 1+ (Normal); Nitrate Urine Negative (Negative)
[2025-05-26 12:12] LABS: Add Urine Microscopic? YES
[2025-05-26 12:13] LABS: Specific Gravity, Urine 1.034 (1.005-1.030)
--- NOTE | 2025-05-26 12:47 | P.PN_ITS ---
Subjective 2 Subjective: Patient was resting in bed he had a CT scan this morning. Said he was up ambulating with physical therapy Vitals/I&O/Wt Last Vital Signs Temp 99.8 F H 05/26/25 11:30 Pulse 85 05/26/25 11:30 Resp 18 05/26/25 11:30 BP 181/89 05/26/25 11:30 Pulse Ox 90 05/26/25 11:30 O2 Del Method Room Air 05/26/25 11:30 O2 Flow Rate 2 05/25/25 04:00 05/25/25 05/26/25 05/26/25 22:59 06:59 14:59 Intake Total 290 / 890 50 / 940 50 / 50 Output Total 750 / 1250 475 / 1725 530 / 530 Balance -460 / -360 -425 / -785 -480 / -480 Weight last 48 hrs Weight 169 lb Weight 173 lb 3 oz Physical Exam 2 Narrative: Patient resting comfortably in bed Urinary Catheter Management: Naylor: Cath Placed During This Visit: yes Reason for Continuing Indwelling Catheter: Other Urinary Catheter Date of Insertion: 05/26/25 Urinary Catheter Time of Insertion: 11:55 Data 05/26/25 10:23 05/26/25 05:00 Micro: Microbiology 05/24/25 09:15 Blood Culture - Preliminary Blood NEGATIVE TO DATE 05/24/25 09:11 Blood Culture - Preliminary Blood NEGATIVE TO DATE A&P Assessment and plan 1. Fracture of neck of right femur: Status post right hip hemiarthroplasty Up with physical therapy Discharge planning PDMP PDMP Reviewed: Not Reviewed Attestations 2 Medical Necessity Statement*: Per primary service Coding Level of Care Code Acute Code for [facility] Fwd Diagnoses Fracture of neck of right femur S72.001A
--- NOTE | 2025-05-26 14:22 | PC.SOCIAL ---
IMM updated IMM dated and initialed, copy placed in chart and copy given to patient.
--- NOTE | 2025-05-26 20:35 | PM.PN ---
Subjective Subjective: He is overall doing well. Denies abdominal pain or discomfort. Denies right flank pain or discomfort. Denies any difficulty breathing chest pain. Encouraged and instructed on use of incentive spirometer. Vitals/I&O/Wt Last Vital Signs Temp 98.2 F 05/26/25 20:00 Pulse 86 05/26/25 20:00 Resp 18 05/26/25 20:00 BP 146/67 05/26/25 20:00 Pulse Ox 90 05/26/25 20:00 O2 Del Method Room Air 05/26/25 20:00 O2 Flow Rate 2 05/25/25 04:00 05/26/25 05/26/25 05/26/25 06:59 14:59 22:59 Intake Total 50 / 940 50 / 50 170 / 220 Output Total 475 / 1725 530 / 530 650 / 1180 Balance -425 / -785 -480 / -480 -480 / -960 Weight last 48 hrs Weight 76.657 kg Weight 78.557 kg Physical Exam Const: COMMON NORMALS: patient oriented x3 and alert GENERAL APPEARANCE: cooperative ORIENTATION/CONSCIOUSNESS: Yes awake HENMT: COMMON NORMALS: oropharynx normal Neck/C-Spine: COMMON NORMALS: no JVD Resp: COMMON NORMALS: normal respiratory effort and clear to auscultation bilaterally AUSCULTATION: clear to auscultation bilaterally Cardio: COMMON NORMALS: no JVD, regular rhythm, S1 normal heart sound present, S2 normal heart sound present and No murmurs present (Cardio) RHYTHM: regular rhythm HEART SOUNDS: S1 normal heart sound present and S2 normal heart sound present GI: COMMON NORMALS: Normal to inspection, nondistended, normoactive bowel sounds present, Soft to palpation and non-tender PALPATION: Yes Soft to palpation Extremity: COMMON NORMALS: no joint enlargement and no pedal edema NARRATIVE EXTREMITY EXAM: Right leg postop dressing clean and intact. No surrounding erythema swelling, no drainage. Neuro: COMMON NORMALS: patient oriented x3 and moves all extremities SENSORIUM/ORIENTATION: Yes alert Skin: COMMON NORMALS: no rashes or lesions noted GENERAL SKIN EXAM: no rashes or lesions noted Urinary Catheter Management: Naylor: Cath Placed During This Visit: yes Reason for Continuing Indwelling Catheter: Acute Urinary Retention or Obstruction Urinary Catheter Date of Insertion: 05/26/25 Urinary Catheter Time of Insertion: 11:55 Data 05/26/25 10:23 05/26/25 05:00 A&P Assessment and plan 1. Primary hypertension: Continue losartan add Norvasc 2. Type 2 diabetes mellitus: 3. Fracture of neck of right femur: 4. Hemiplegia as late effect of stroke: 5. Spastic hemiparesis of right dominant side: 6. Leukocytosis: 7. Retroperitoneal air: 8. Retroperitoneal hematoma: Plan: Retroperitoneal hematoma with air Repeat CT scan obtained today. Reviewed, discussed with him and with general surgery. Reached out to orthopedic surgery to further discuss findings. Reviewed orthopedic note. Per general surgery low suspicion of perforated viscus. Trial of resuming oral diet. Continuing on IV antibiotic empirically for now. Leukocytosis discussed with him down to 13.4 but persistent. Low-grade temp today 99 8 Fahrenheit. CRP without a significant decrease. Continue empiric IV antibiotic for now with Zosyn. Reassess blood counts. Follow-up blood culture. So far negative. DC IV fluid. Air was thought to be possibly postoperative, however, reassess. In case of persistence of leukocytosis, fever, aspiration may be considered. Right hip fracture - S/p surgical invention. Continue PT. Discharge planning. 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 - Morphine for pain control Type 2 diabetes mellitus, A1c 8.6, low-dose on scale reviewed POC glucose. Change diet to consistent carbohydrate. Continue sliding scale insulin. Fall There is retroperitoneal air identified posterior to the cecum and ascending colon and extending along the RIGHT iliac is muscle. There is soft tissue infiltrating along the RIGHT psoas muscle which is consistent with a hematoma. Hematoma involves the psoas and iliacus muscle. Hematoma is contiguous with the RIGHT inguinal region. There is also air in the surgical site over the RIGHT hip. - Multiple hematomas as above - Hold blood thinners Retroperitoneal air - CT/[place] [id number] IMPRESSION: 1. Recent post RIGHT hip arthroplasty. Postsurgical changes in the soft tissues around the RIGHT hip and RIGHT pelvis of hematoma, edema and subcutaneous air. 2. Small retroperitoneal hematoma on the RIGHT. 3. Retroperitoneal air is noted within the RIGHT pelvis. This area extends along the iliacus muscle into the retroperitoneum posterior to the ascending colon. This is also the site of the retroperitoneal hematoma. Although it is unusual this may be air dissecting through the soft tissues from the RIGHT hip arthroplasty. With elevated white blood count perforation of the tract, especially involving the ascending colon should be considered. Necrotizing fasciitis is a rare complication associated with postsurgical changes. 4. No pneumonia. Mild dependent changes at the lung bases. - Discussed case with Dr. Murphy, discussed retroperitoneal hematoma, retroperitoneal air, discussed sources possibly being the right hip, but appendix was not seen well on the CT scan, did discuss patient's fall that brought him to the hospital, right hip fracture, but abdominal exam is benign -I discussed the case with general surgery, discussed patient is abdominal exam being benign, reason for CT scan, leukocytosis, General Surgery to reviewed the images, discussed radiology's concerns as appendix is not seen, retroperitoneal air represents possible ruptured appendix, or from ascending colon - Discussed abdominal examination being benign, patient clinically not having abdominal pain, passing gas, but has not had a bowel movement as of yet, no lack of appetite hemodynamically stable, recent right hip surgery - After discussion with general surgery, they feel that here is likely from patient's right hip surgery, and retroperitoneal hematoma likely from fall, but they would review the case and consult - Did recommend starting IV antibiotics for concerns for infected retroperitoneal hematoma which I have started patient on Zosyn, History of CVA, with residual right-sided deficits Leukocytosis - As above PDMP PDMP Reviewed: Not Reviewed Attestations Medical Necessity Statement*: Continue admission for further assessment following fall, retroperitoneal hematoma with air with leukocytosis, low-grade temperature. and High MDM includes amount and/or complexity of data reviewed/ordered [ resulted lab(s)/test(s) and other healthcare professional discussion] as documented Diagnoses Primary hypertension I10 Hypertension type: primary hypertension Type 2 diabetes mellitus E11.9 Fracture of neck of right femur S72.001A Hemiplegia as late effect of stroke I69.359 Spastic hemiparesis of right dominant side G81.11 Leukocytosis D72.829 Retroperitoneal air K66.8 Retroperitoneal hematoma K68.3
[2025-05-26] MEDS: insulin glargine 100 units/1 mL 5 UNIT SUBCUT (22:51)
[2025-05-26] MEDS: morphine 4 mg/mL SDV 1 mL IVP (23:37)
[2025-05-27] VITALS: BP 134/70; PULSE 84; RESP 18; TEMP 36.8; O2SAT 90
[2025-05-27] MEDS: HYDROcodone-acetaminophen 5-325 mg Tablet 1 TAB PO ×5 (03:03→22:56)
[2025-05-27 04:00] VITALS: BP 151/73; PULSE 91; RESP 16; TEMP 36.9; O2SAT 91
[2025-05-27] MEDS: piperacillin-tazobactam 3.375 GM in sodium chloride 0.9% (plus) 50 ML IV ×3 (05:33→20:51)
[2025-05-27 05:37] LABS: Hematocrit 35.8 % (37-53); Hemoglobin 12.10 g/dL (11.27-16.99); Mean Corpuscular HGB Conc 33.8 g/dL (30-55); Mean Corpuscular Hemoglobin 30.9 pg (27-33); Mean Corpuscular Volume 91.3 fl (82-101); Nucleated Red Blood Cells % 0 %; Platelet Count 253 10^3/cmm (157-399); Red Blood Count 3.92 10^6/uL (3.85-5.65); White Blood Count 11.56 10^3/uL (3.29-11.43)
[2025-05-27 05:59] LABS: Alanine Aminotransferase 13 U/L (0-41); Albumin Level 2.9 g/dL (3.5-5.2); Alkaline Phosphatase 87 U/L (40-130); Anion Gap 13.6 (5-19); Aspartate Amino Transferase 14 U/L (0-40); Blood Urea Nitrogen 11 mg/dL (8-23); Calcium 8.6 mg/dL (8.5-10.5); Carbon Dioxide 24 mmol/L (22-29); Chloride 100 mmol/L (98-107); Globulin 3.4 g/dL (1.3-4.6); Glucose 214 mg/dL (65-115); Osmolality Calculated 284 mOsm/kg (285-295); Potassium 3.6 mmol/L (3.5-5.1); Sodium 134 mmol/L (136-145); Total Protein 6.3 g/dL (6.6-8.7)
[2025-05-27 06:26] LABS: Creatinine Clr Calc Pharmacy 92.8906
[2025-05-27 08:00] VITALS: BP 177/83; PULSE 89; RESP 20; TEMP 36.9; O2SAT 90
[2025-05-27] MEDS: polyethylene glycol 3350 Pkt 17 gm PO (09:02)
[2025-05-27 12:00] VITALS: BP 172/73; PULSE 78; RESP 18; TEMP 37.2; O2SAT 90
--- NOTE | 2025-05-27 13:18 | P.PN_ITS ---
Subjective 2 Subjective: No acute events overnight no abdominal pain tolerating diet Vitals/I&O/Wt Last Vital Signs Temp 98.9 F 05/27/25 12:00 Pulse 78 05/27/25 12:00 Resp 18 05/27/25 12:00 BP 172/73 05/27/25 12:00 Pulse Ox 90 05/27/25 12:00 O2 Del Method Room Air 05/27/25 12:00 O2 Flow Rate 2 05/25/25 04:00 05/26/25 05/27/25 05/27/25 22:59 06:59 14:59 Intake Total 170 / 220 50 / 270 50 / 50 Output Total 650 / 1180 800 / 1980 Balance -480 / -960 -750 / -1710 50 / 50 Weight last 48 hrs Weight 167 lb Weight 169 lb Physical Exam 2 Narrative: Chest: Unlabored breathing room air. No lymphadenopathy. Heart: Regular rate and rhythm. Abdomen: Soft, nontender, nondistended. No masses or lymphadenopathy. Urinary Catheter Management: Naylor: Cath Placed During This Visit: yes Reason for Continuing Indwelling Catheter: Acute Urinary Retention or Obstruction Urinary Catheter Date of Insertion: 05/26/25 Urinary Catheter Time of Insertion: 11:55 Data 05/27/25 04:37 05/27/25 04:37 A&P Assessment and plan 1. Retroperitoneal air: Plan: 64-year-old male whom surgery was consulted to rule out intra-abdominal pathology. Tolerating diet. No abdominal pain. No concern for acute intra- abdominal pathology. PDMP PDMP Reviewed: Not Reviewed Attestations 2 Medical Necessity Statement*: N/A Coding Level of Care Code 48502 Diagnoses Retroperitoneal air K66.8
[2025-05-27] MEDS: lactulose oral liq 20 gm/30 mL UDC PO (13:31)
[2025-05-27 16:00] VITALS: BP 162/87; PULSE 88; RESP 18; TEMP 36.8; O2SAT 90
--- NOTE | 2025-05-27 19:08 | P.PN_ITS ---
Subjective 2 Subjective: Patient was seen this morning, he is ambulating with physical therapy, denies any nausea, no vomiting, no abdominal pain, he is passing gas he has not had a bowel movement, he feels constipated, he tells me that he has had an appendectomy Vitals/I&O/Wt Last Vital Signs Temp 98.3 F 05/27/25 16:00 Pulse 88 05/27/25 16:00 Resp 18 05/27/25 16:00 BP 162/87 05/27/25 16:00 Pulse Ox 90 05/27/25 16:00 O2 Del Method Room Air 05/27/25 16:00 O2 Flow Rate 2 05/25/25 04:00 05/27/25 05/27/25 05/27/25 06:59 14:59 22:59 Intake Total 50 / 270 50 / 50 50 / 100 Output Total 800 / 1980 Balance -750 / -1710 50 / 50 50 / 100 Weight last 48 hrs Weight 75.75 kg Weight 76.657 kg Physical Exam 2 Const: COMMON NORMALS: no acute distress and patient oriented x3 Resp: COMMON NORMALS: normal respiratory effort, No retractions, No use of accessory muscles and clear to auscultation bilaterally AUSCULTATION: clear to auscultation bilaterally Cardio: COMMON NORMALS: regular rate, regular rhythm, S1 normal heart sound present and S2 normal heart sound present RATE: regular rate RHYTHM: r egular rhythm HEART SOUNDS: S1 normal heart sound present and S2 normal heart sound present GI: COMMON NORMALS: Normal to inspection, nondistended, normoactive bowel sounds present and non-tender Extremity: COMMON NORMALS: no calf tenderness and no pedal edema Neuro: COMMON NORMALS: patient oriented x3 Psych: COMMON NORMALS: mental status grossly normal Urinary Catheter Management: Naylor: Cath Placed During This Visit: yes Reason for Continuing Indwelling Catheter: Acute Urinary Retention or Obstruction Urinary Catheter Date of Insertion: 05/26/25 Urinary Catheter Time of Insertion: 11:55 Data 05/27/25 04:37 05/27/25 04:37 A&P Assessment and plan 1. Hypertension: Continue losartan add Norvasc 2. Type 2 diabetes mellitus: 3. Fracture of neck of right femur: 4. Hemiplegia as late effect of stroke: 5. Spastic hemiparesis of right dominant side: 6. Leukocytosis: 7. Retroperitoneal air: 8. Retroperitoneal hematoma: Plan: Right hip fracture - S/p surgical invention - Morphine for pain control - Heparin for DVT prophylaxis - Type 2 diabetes mellitus, A1c 8.6, low-dose on scale - Full code SCDs for DVT prophylaxis Fall There is retroperitoneal air identified posterior to the cecum and ascending colon and extending along the RIGHT iliac is muscle. There is soft tissue infiltrating along the RIGHT psoas muscle which is consistent with a hematoma. Hematoma involves the psoas and iliacus muscle. Hematoma is contiguous with the RIGHT inguinal region. There is also air in the surgical site over the RIGHT hip. - Multiple hematomas as above - Hold blood thinners Retroperitoneal hematoma - Likely associate with fall - Monitor hemoglobin - Hold Lovenox, hold aspirin Retroperitoneal air - CT/[place] [id number] IMPRESSION: 1. Recent post RIGHT hip arthroplasty. Postsurgical changes in the soft tissues around the RIGHT hip and RIGHT pelvis of hematoma, edema and subcutaneous air. 2. Small retroperitoneal hematoma on the RIGHT. 3. Retroperitoneal air is noted within the RIGHT pelvis. This area extends along the iliacus muscle into the retroperitoneum posterior to the ascending colon. This is also the site of the retroperitoneal hematoma. Although it is unusual this may be air dissecting through the soft tissues from the RIGHT hip arthroplasty. With elevated white blood count perforation of the tract, especially involving the ascending colon should be considered. Necrotizing fasciitis is a rare complication associated with postsurgical changes. 4. No pneumonia. Mild dependent changes at the lung bases. - Discussed case with Dr. Murphy, discussed retroperitoneal hematoma, retroperitoneal air, discussed sources possibly being the right hip, but appendix was not seen well on the CT scan, did discuss patient's fall that brought him to the hospital, right hip fracture, but abdominal exam is benign -I discussed the case with general surgery, discussed patient is abdominal exam being benign, reason for CT scan, leukocytosis, General Surgery to reviewed the images, discussed radiology's concerns as appendix is not seen, retroperitoneal air represents possible ruptured appendix, or from ascending colon - Discussed abdominal examination being benign, patient clinically not having abdominal pain, passing gas, but has not had a bowel movement as of yet, no lack of appetite hemodynamically stable, recent right hip surgery. -Patient reports that he is status post appendectomy - After discussion with general surgery, they feel that here is likely from patient's right hip surgery, and retroperitoneal hematoma likely from fall, but they would review the case and consult - Did recommend starting IV antibiotics for concerns for infected retroperitoneal hematoma which I have continue Zosyn History of CVA, with residual right-sided deficits Leukocytosis - Monitor for fevers CRP, Pro-Jm, sed rate, chest x-ray, UA - As above PDMP PDMP Reviewed: Not Reviewed Attestations 2 Medical Necessity Statement*: Patient requires hospitalization for retroperitoneal air, hematoma,right hip fracture Diagnoses Hypertension I10 Type 2 diabetes mellitus E11.9 Fracture of neck of right femur S72.001A Hemiplegia as late effect of stroke I69.359 Spastic hemiparesis of right dominant side G81.11 Leukocytosis D72.829 Retroperitoneal air K66.8 Retroperitoneal hematoma K68.3
[2025-05-27 20:00] VITALS: BP 152/71; PULSE 88; RESP 19; TEMP 37.1; O2SAT 90
[2025-05-27] MEDS: insulin glargine 100 units/1 mL 5 UNIT SUBCUT (20:58)
[2025-05-28] VITALS: BP 137/70; PULSE 70; RESP 17; TEMP 36.9; O2SAT 93
[2025-05-28] MEDS: lactulose oral liq 20 gm/30 mL UDC PO ×2 (00:21→12:21)
[2025-05-28] MEDS: HYDROcodone-acetaminophen 5-325 mg Tablet 1 TAB PO ×4 (02:59→19:57)
[2025-05-28 04:00] VITALS: BP 155/79; PULSE 78; RESP 16; TEMP 36.8; O2SAT 90
[2025-05-28 04:20] LABS: Hematocrit 37.5 % (37-53); Hemoglobin 12.40 g/dL (11.27-16.99); Mean Corpuscular HGB Conc 33.1 g/dL (30-55); Mean Corpuscular Hemoglobin 30.7 pg (27-33); Mean Corpuscular Volume 92.8 fl (82-101); Nucleated Red Blood Cells % 0 %; Platelet Count 294 10^3/cmm (157-399); Red Blood Count 4.04 10^6/uL (3.85-5.65); White Blood Count 12.18 10^3/uL (3.29-11.43)
[2025-05-28 04:46] LABS: Alanine Aminotransferase 22 U/L (0-41); Albumin Level 3.1 g/dL (3.5-5.2); Alkaline Phosphatase 106 U/L (40-130); Anion Gap 13.6 (5-19); Aspartate Amino Transferase 22 U/L (0-40); Blood Urea Nitrogen 10 mg/dL (8-23); Calcium 8.9 mg/dL (8.5-10.5); Carbon Dioxide 26 mmol/L (22-29); Chloride 102 mmol/L (98-107); Globulin 3.4 g/dL (1.3-4.6); Glucose 195 mg/dL (65-115); Osmolality Calculated 290 mOsm/kg (285-295); Potassium 3.6 mmol/L (3.5-5.1); Sodium 138 mmol/L (136-145); Total Protein 6.5 g/dL (6.6-8.7)
[2025-05-28 04:51] LABS: Creatinine Clr Calc Pharmacy 93.1271
[2025-05-28] MEDS: polyethylene glycol 3350 Pkt 17 gm PO ×2 (05:35→18:03)
[2025-05-28] MEDS: piperacillin-tazobactam 3.375 GM in sodium chloride 0.9% (plus) 50 ML IV ×3 (05:36→19:58)
[2025-05-28 08:00] VITALS: BP 166/80; PULSE 85; RESP 18; TEMP 37.6; O2SAT 90
--- NOTE | 2025-05-28 10:28 | P.PN_ITS ---
Subjective 2 Subjective: Tolerating a diet no abdominal pain Vitals/I&O/Wt Last Vital Signs Temp 99.7 F H 05/28/25 08:00 Pulse 85 05/28/25 08:00 Resp 18 05/28/25 08:00 BP 166/80 05/28/25 08:00 Pulse Ox 90 05/28/25 08:00 O2 Del Method Room Air 05/28/25 08:00 O2 Flow Rate 2 05/25/25 04:00 05/27/25 05/28/25 05/28/25 22:59 06:59 14:59 Intake Total 410 / 460 50 / 510 290 / 290 Output Total 1450 / 1450 800 / 2250 Balance -1040 / -990 -750 / -1740 290 / 290 Weight last 48 hrs Weight 168 lb Weight 167 lb Physical Exam 2 Narrative: Chest: Unlabored breathing room air. No lymphadenopathy. Heart: Regular rate and rhythm. Abdomen: Soft, nontender, nondistended. No masses or lymphadenopathy. Urinary Catheter Management: Naylor: Cath Placed During This Visit: yes Reason for Continuing Indwelling Catheter: Acute Urinary Retention or Obstruction Urinary Catheter Date of Insertion: 05/26/25 Urinary Catheter Time of Insertion: 11:55 Data 05/29/25 02:31 05/29/25 02:31 A&P Assessment and plan 1. Retroperitoneal air: Plan: 64-year-old male whom surgery was consulted for retroperitoneal air status post right hip arthroplasty. Postoperative changes. No acute intra-abdominal pathology. Okay for regular diet. Will sign off. PDMP PDMP Reviewed: Not Reviewed Attestations 2 Medical Necessity Statement*: N/A Coding Level of Care Code 97292 Diagnoses Retroperitoneal air K66.8
[2025-05-28 12:00] VITALS: BP 146/76; PULSE 85; TEMP 36.7; O2SAT 90
[2025-05-28 12:39] LABS: Glucose Urine UA Trace (Normal); Nitrate Urine Negative (Negative); Specific Gravity, Urine 1.013 (1.005-1.030)
[2025-05-28 12:44] LABS: Add Urine Microscopic? YES
--- NOTE | 2025-05-28 14:18 | P.PN_ITS ---
Subjective 2 Subjective: Patient was seen this morning, currently alert oriented x 3, following commands, denies any fevers, no chills, no cough, no Vitals/I&O/Wt Last Vital Signs Temp 98.0 F 05/28/25 12:00 Pulse 85 05/28/25 12:00 Resp 18 05/28/25 08:00 BP 146/76 05/28/25 12:00 Pulse Ox 90 05/28/25 12:00 O2 Del Method Room Air 05/28/25 12:00 O2 Flow Rate 2 05/25/25 04:00 05/27/25 05/28/25 05/28/25 22:59 06:59 14:59 Intake Total 410 / 460 50 / 510 530 / 530 Output Total 1450 / 1450 800 / 2250 Balance -1040 / -990 -750 / -1740 530 / 530 Weight last 48 hrs Weight 76.204 kg Weight 75.75 kg Physical Exam 2 Const: COMMON NORMALS: no acute distress and patient oriented x3 Resp: COMMON NORMALS: normal respiratory effort, No retractions, No use of accessory muscles and clear to auscultation bilaterally AUSCULTATION: clear to auscultation bilaterally Cardio: COMMON NORMALS: regular rate, regular rhythm, S1 normal heart sound present and S2 normal heart sound present RATE: regular rate RHYTHM: r egular rhythm HEART SOUNDS: S1 normal heart sound present and S2 normal heart sound present GI: COMMON NORMALS: Normal to inspection, nondistended, normoactive bowel sounds present and non-tender Extremity: COMMON NORMALS: no pedal edema Neuro: COMMON NORMALS: patient oriented x3 Psych: COMMON NORMALS: mental status grossly normal Urinary Catheter Management: Naylor: Cath Placed During This Visit: yes Reason for Continuing Indwelling Catheter: Acute Urinary Retention or Obstruction Urinary Catheter Date of Insertion: 05/26/25 Urinary Catheter Time of Insertion: 11:55 Data 05/28/25 03:13 05/28/25 03:13 A&P Assessment and plan 1. Hypertension: Continue losartan add Norvasc 2. Type 2 diabetes mellitus: 3. Fracture of neck of right femur: 4. Hemiplegia as late effect of stroke: 5. Spastic hemiparesis of right dominant side: 6. Leukocytosis: 7. Retroperitoneal air: 8. Retroperitoneal hematoma: Plan: Right hip fracture - S/p surgical invention - Hydrocodone for pain control - Heparin for DVT prophylaxis currently on hold -Discussed risks and benefits of holding anticoag therapy with the right hip fracture, with the retroperitoneal hematoma, shared decision making, he wants to proceed to holding anticoagulant therapy - Type 2 diabetes mellitus, A1c 8.6, low-dose on scale - Full code SCDs for DVT prophylaxis Fall There is retroperitoneal air identified posterior to the cecum and ascending colon and extending along the RIGHT iliac is muscle. There is soft tissue infiltrating along the RIGHT psoas muscle which is consistent with a hematoma. Hematoma involves the psoas and iliacus muscle. Hematoma is contiguous with the RIGHT inguinal region. There is also air in the surgical site over the RIGHT hip. - Multiple hematomas as above - Hold blood thinners Retroperitoneal hematoma - Likely associate with fall - Monitor hemoglobin - Hold Lovenox, hold aspirin Retroperitoneal air - CT/[place] [id number] IMPRESSION: 1. Recent post RIGHT hip arthroplasty. Postsurgical changes in the soft tissues around the RIGHT hip and RIGHT pelvis of hematoma, edema and subcutaneous air. 2. Small retroperitoneal hematoma on the RIGHT. 3. Retroperitoneal air is noted within the RIGHT pelvis. This area extends along the iliacus muscle into the retroperitoneum posterior to the ascending colon. This is also the site of the retroperitoneal hematoma. Although it is unusual this may be air dissecting through the soft tissues from the RIGHT hip arthroplasty. With elevated white blood count perforation of the tract, especially involving the ascending colon should be considered. Necrotizing fasciitis is a rare complication associated with postsurgical changes. 4. No pneumonia. Mild dependent changes at the lung bases. - Discussed case with Dr. Murphy, discussed retroperitoneal hematoma, retroperitoneal air, discussed sources possibly being the right hip, but appendix was not seen well on the CT scan, did discuss patient's fall that brought him to the hospital, right hip fracture, but abdominal exam is benign -I discussed the case with general surgery, discussed patient is abdominal exam being benign, reason for CT scan, leukocytosis, General Surgery to reviewed the images, discussed radiology's concerns as appendix is not seen, retroperitoneal air represents possible ruptured appendix, or from ascending colon - Discussed abdominal examination being benign, patient clinically not having abdominal pain, passing gas, but has not had a bowel movement as of yet, no lack of appetite hemodynamically stable, recent right hip surgery. -Patient reports that he is status post appendectomy - After discussion with general surgery, they feel that here is likely from patient's right hip surgery, and retroperitoneal hematoma likely from fall, but they would review the case and consult - Did recommend starting IV antibiotics for concerns for infected retroperitoneal hematoma which I have continue Zosyn History of CVA, with residual right-sided deficits Leukocytosis - Monitor for fevers CRP, Pro-Jm, sed rate, chest x-ray, UA - As above PDMP PDMP Reviewed: Not Reviewed Attestations 2 Medical Necessity Statement*: Patient requires hospitalization for a retroperitoneal hematoma, retroperitoneal air, right hip fracture Diagnoses Hypertension I10 Type 2 diabetes mellitus E11.9 Fracture of neck of right femur S72.001A Hemiplegia as late effect of stroke I69.359 Spastic hemiparesis of right dominant side G81.11 Leukocytosis D72.829 Retroperitoneal air K66.8 Retroperitoneal hematoma K68.3
[2025-05-28 16:00] VITALS: BP 139/68; PULSE 90; RESP 17; TEMP 36.7; O2SAT 91
[2025-05-28 20:00] VITALS: BP 164/87; PULSE 99; RESP 17; TEMP 37.4; O2SAT 91
[2025-05-28] MEDS: insulin glargine 100 units/1 mL 5 UNIT SUBCUT (20:45)
[2025-05-29] VITALS: BP 158/85; PULSE 77; RESP 17; TEMP 36.3; O2SAT 90
[2025-05-29] MEDS: HYDROcodone-acetaminophen 5-325 mg Tablet 1 TAB PO ×3 (00:18→09:51)
[2025-05-29] MEDS: lactulose oral liq 20 gm/30 mL UDC PO (00:19)
[2025-05-29 03:49] LABS: Hematocrit 37.4 % (37-53); Hemoglobin 12.50 g/dL (11.27-16.99); Mean Corpuscular HGB Conc 33.4 g/dL (30-55); Mean Corpuscular Hemoglobin 30.9 pg (27-33); Mean Corpuscular Volume 92.3 fl (82-101); Nucleated Red Blood Cells % 0 %; Platelet Count 318 10^3/cmm (157-399); Red Blood Count 4.05 10^6/uL (3.85-5.65); White Blood Count 13.17 10^3/uL (3.29-11.43)
[2025-05-29 04:00] VITALS: BP 162/80; PULSE 71; RESP 17; TEMP 36.9; O2SAT 93
[2025-05-29 04:09] LABS: Alanine Aminotransferase 23 U/L (0-41); Albumin Level 3.1 g/dL (3.5-5.2); Alkaline Phosphatase 108 U/L (40-130); Anion Gap 15.7 (5-19); Aspartate Amino Transferase 19 U/L (0-40); Blood Urea Nitrogen 9 mg/dL (8-23); Calcium 8.9 mg/dL (8.5-10.5); Carbon Dioxide 25 mmol/L (22-29); Chloride 100 mmol/L (98-107); Globulin 3.6 g/dL (1.3-4.6); Glucose 220 mg/dL (65-115); Osmolality Calculated 289 mOsm/kg (285-295); Potassium 3.7 mmol/L (3.5-5.1); Sodium 137 mmol/L (136-145); Total Protein 6.7 g/dL (6.6-8.7)
[2025-05-29 04:14] LABS: Creatinine Clr Calc Pharmacy 93.1271
[2025-05-29] MEDS: piperacillin-tazobactam 3.375 GM in sodium chloride 0.9% (plus) 50 ML IV ×2 (04:40→13:52)
[2025-05-29 08:00] VITALS: BP 161/75; PULSE 83; RESP 16; TEMP 37.1; O2SAT 90
--- NOTE | 2025-05-29 08:00 | PC.NURSE ---
Pleasantly refuses telemetry.
--- NOTE | 2025-05-29 10:19 | PC.SOCIAL ---
IMM Update Updated pt on IMM. No questions voiced. Provided pt a copy. Initialed, dated, & timed copy in chart.
[2025-05-29 11:10] VITALS: BP 135/75; PULSE 80; RESP 16; TEMP 37.2; O2SAT 91
--- NOTE | 2025-05-29 13:41 | PM.DCS ---
Discharge Providers Date of Admission: 05/22/25 19:07 Date of Discharge: May 29, 2025 Attending Provider at Admission: Diamond Wood MD Attending Provider at Discharge: Bernard Hurd MD Primary Care Provider: TEMO Call Diagnoses at Discharge Discharge Diagnosis 1. Retroperitoneal air: Reason for Visit Reason for Visit: fall - right hip pain Hospital Course Hospital Course This is a 64-year-old male with a past medical history of CVA, with right-sided weakness, who presents [facility] for mechanical fall Patient was admitted to [facility] for a right hip fracture, status post surgical intervention, tolerated procedure well, attempts were made to place patient to nursing home facility, on 05/29/2025, patient has decided to go home - Patient will be discharged home - With close follow-up with orthopedic services outpatient - Was not discharged on aspirin 81 mg for DVT prophylaxis given his retroperitoneal hematoma For his fall -There is soft tissue infiltrating along the RIGHT psoas muscle which is consistent with a hematoma. Hematoma involves the psoas and iliacus muscle. Hematoma is contiguous with the RIGHT inguinal region. T - Anticoagulant therapy aspirin was held during his hospitalization Patient was found to have a retroperitoneal hematoma, likely associated with his follow-up - Hemodynamics were stable - Hemoglobin is stable - His Lovenox and aspirin were held during his hospitalization - Throughout his hospitalization we had a discussion with the risk of benefits of holding anticoagulant therapy with aspirin, shared decision making, he voiced understanding, all question answered, agreed to hold for now - Decision if and when to resume aspirin 81 mg will be based on shared decision making with patient and primary care as outpatient Retroperitoneal air - [place] [id number] IMPRESSION: 1. Recent post RIGHT hip arthroplasty. Postsurgical changes in the soft tissues around the RIGHT hip and RIGHT pelvis of hematoma, edema and subcutaneous air. 2. Small retroperitoneal hematoma on the RIGHT. 3. Retroperitoneal air is noted within the RIGHT pelvis. This area extends along the iliacus muscle into the retroperitoneum posterior to the ascending colon. This is also the site of the retroperitoneal hematoma. Although it is unusual this may be air dissecting through the soft tissues from the RIGHT hip arthroplasty. With elevated white blood count perforation of the tract, especially involving the ascending colon should be considered. Necrotizing fasciitis is a rare complication associated with postsurgical changes. 4. No pneumonia. Mild dependent changes at the lung bases. - Discussed case with Dr. Murphy, discussed retroperitoneal hematoma, retroperitoneal air, discussed sources possibly being the right hip, but appendix was not seen well on the CT scan, did discuss patient's fall that brought him to the hospital, right hip fracture, but abdominal exam is benign -I discussed the case with general surgery, discussed patient is abdominal exam being benign, reason for CT scan, leukocytosis, General Surgery to reviewed the images, discussed radiology's concerns as appendix is not seen, retroperitoneal air represents possible ruptured appendix, or from ascending colon - Discussed abdominal examination being benign, patient clinically not having abdominal pain, passing gas, but has not had a bowel movement as of yet, no lack of appetite hemodynamically stable, recent right hip surgery. -Patient reports that he is status post appendectomy - After discussion with general surgery, they feel that here is likely from patient's right hip surgery, and retroperitoneal hematoma likely from fall - Patient received IV antibiotics, and clinically monitored, received serial abdominal exams - recurrent abdominal exam, no significant symptomatology, having adequate bowel movements, - Overall clinically improved - Will be discharged on p.o. antibiotics - Patient was advised to monitor for abdominal pain if so go to emergency room - Follow-up primary care, monitor hemoglobin as outpatient - Anticoagulation/aspirin has been held on discharge, decision if and when to resume anticoagulant therapy aspirin will be shared decision making based on shared decision making with primary care - Type 2 diabetes mellitus, discharged on Lantus 5 units daily, with a NovoLog sliding scale -Please monitor your blood sugars closely -Monitor your blood sugars 3 times daily as after meals -Please record your blood sugars, and a blood sugar log -For your NovoLog -Please inject blood sugar after meals based on sliding scale provided -Do not inject insulin if you do not eat as hypoglycemia kills -This is a NovoLog sliding scale -Insulin sliding ?fingerstick? Insulin ?141-180?0 units/sq 181-220?2 units/sq ?221-260?4 units/sq ?261-300 6 units/sq ?301-350?8 units/sq ?351-400 10 units/sq ?401-450?12 units/sq >450? 14units/sq -If your blood sugar is greater than 500 go to the emergency room -If your blood sugar is less than 60 or at anytime you feel lightheaded or dizzy or diaphoretic or have chest palpitations check your blood sugar, and eat a hard candy or drink orange juice and go immediately to the emergency room -Remember hypoglycemia kills, so if his blood sugar is less than 60 we have to increase it by taking in a sugary meal such as a hard candy or orange juice and go to the emergency room -If you have any questions please call us where here to help Physical Exam Const: COMMON NORMALS: no acute distress and patient oriented x3 Eye: COMMON NORMALS: Equal, round and reactive pupils present and EOMs intact bilaterally PUPIL: Yes Equal, round and reactive pupils present Resp: COMMON NORMALS: normal respiratory effort, No retractions, No use of accessory muscles and clear to auscultation bilaterally AUSCULTATION: clear to auscultation bilaterally Cardio: COMMON NORMALS: regular rate, regular rhythm, S1 normal heart sound present and S2 normal heart sound present RATE: regular rate RHYTHM: regular rhythm HEART SOUNDS: S1 normal heart sound present and S2 normal heart sound present GI: COMMON NORMALS: Normal to inspection, nondistended, normoactive bowel sounds present and non-tender OTHER: No guarding, no rebound, no rigidity Extremity: COMMON NORMALS: no pedal edema Neuro: COMMON NORMALS: patient oriented x3 Psych: COMMON NORMALS: mental status grossly normal Urinary Catheter Management: Naylor: Cath Placed During This Visit: yes, but has since been removed by the nurse Reason for Continuing Indwelling Catheter: Decision to DC Catheter Urinary Catheter Date of Insertion: 05/26/25 Urinary Catheter Time of Insertion: 11:55 Date Urinary Catheter Removed: 05/28/25 Time Urinary Catheter Discontinued: 09:20 Discharge Data Studies Completed and Pending Completed Studies During Hospitalization Category Date Time Status CT abdomen pelvis w con* [id number] Routine Cat Scan 05/26/25 09:[address] chest abdomen pelvis [[place] [id number] Cat Scan 05/25/25 07:47 Completed ] Routine XR chest 1V portable [id number] Routine Exams 05/24/25 08:47 Completed XR chest 1V portable [id number] Stat Exams 05/22/25 18:28 Completed XR hip RT 1V wo/[place] [id number] Stat Exams 05/23/25 13:44 Completed XR hip RT 2-3V wo/w pel* [id number] Stat Exams 05/22/25 18:12 [place] [id number] Routine Ultrasound 05/25/25 10:16 Completed Pending at discharge Category Date Time Status C Reactive Protein AM LABS Lab 05/30/25 04:00 Ordered Complete Blood Count w/Auto AM LABS Lab 05/30/25 04:00 Ordered Comprehensive Metabolic Panel AM LABS Lab 05/30/25 04:00 Ordered Urine Culture Routine Lab 05/28/25 12:30 Results Radiology Impressions Hip/Pelvis X-Ray 05/22/25 18:12 IMPRESSION: On the right, Femoral neck fracture, minimal displacement, apex lateral and posterior angulation. Hip X-Ray 05/23/25 13:44 IMPRESSION: Status post right hip arthroplasty. Chest X-Ray 05/24/25 08:47 Impression: Atherosclerosis and hyperinflation. Chest/Abdomen/Pelvis CT 05/25/25 07:47 IMPRESSION: 1. Recent post RIGHT hip arthroplasty. Postsurgical changes in the soft tissues around the RIGHT hip and RIGHT pelvis of hematoma, edema and subcutaneous air. 2. Small retroperitoneal hematoma on the RIGHT. 3. Retroperitoneal air is noted within the RIGHT pelvis. This area extends along the iliacus muscle into the retroperitoneum posterior to the ascending colon. This is also the site of the retroperitoneal hematoma. Although it is unusual this may be air dissecting through the soft tissues from the RIGHT hip arthroplasty. With elevated white blood count perforation of the tract, especially involving the ascending colon should be considered. Necrotizing fasciitis is a rare complication associated with postsurgical changes. 4. No pneumonia. Mild dependent changes at the lung bases. Attempted to notify Bernard Hurd MD at 05/25/2025 9:39 AM. Attempted to notify Bernard Hurd MD at 05/25/2025 9:57 AM. Unsuccessful attempts to notify Dr. Hurd about this report. Venous Duplex 05/25/25 10:16 IMPRESSION: No evidence of deep vein thrombosis in the bilateral lower extremities. Abdomen/Pelvis CT 05/26/25 09:00 IMPRESSION: 1. Small amount of improvement in the RIGHT lower quadrant retroperitoneal air with improving retroperitoneal soft tissue. Suspect improving retroperitoneal hematoma. 2. The appendix is not identified. Cannot completely exclude perforated appendix. No abscess has developed. 3. No abscess or free fluid in the pelvis. 4. Postsurgical changes at the RIGHT hip are reidentified. There is continued air with edema and postoperative hematoma. No significant improvement in the amount of subcutaneous air. There is no abscess. Cannot completely exclude soft tissue infection at the surgical site but these changes also can be seen with normal postoperative process. Laboratory Results WBC 13.17 10^3/uL (3.29-11.43) H 05/29/25 02:31 RBC 4.05 10^6/uL (3.85-5.65) 05/29/25 02:31 Hgb 12.50 g/dL (11.27-16.99) 05/29/25 02:31 Hct 37.4 % (37-53) 05/29/25 02:31 MCV 92.3 fl (82-101) 05/29/25 02:31 MCH 30.9 pg (27-33) 05/29/25 02:31 MCHC 33.4 g/dL (30-55) 05/29/25 02:31 RDW 12.9 % (12.1-15.1) 05/29/25 02:31 Plt Count 318 10^3/cmm (157-399) 05/29/25 02:31 MPV 10.9 fL (7.4-10.4) H 05/29/25 02:31 Neut % (Auto) 69.2 % 05/29/25 02:31 Lymph % (Auto) 14.3 % 05/29/25 02:31 [place] % (Auto) 12.2 % 05/29/25 02:31 Eos % (Auto) 3.0 % 05/29/25 02:31 Baso % (Auto) 0.5 % 05/29/25 02:31 Neut # (Auto) 9.13 10^3/uL (1.8-7.7) H 05/29/25 02:31 Lymph # (Auto) 1.9 10^3/uL (0.8-4.8) 05/29/25 02:31 [place] # (Auto) 1.6 10^3/uL (0.2-0.9) H 05/29/25 02:31 Eos # (Auto) 0.4 10^3/uL (0.0-0.8) 05/29/25 02:31 Baso # (Auto) 0.1 10^3/uL (0.0-0.1) 05/29/25 02:31 Nucleated RBC % (auto) 0 % 05/29/25 02:31 Nucleated RBCs # 0.0 /100WBC 05/29/25 02:31 ESR 30 mm/hr (0-10) H 05/24/25 05:26 PT 14.00 SECONDS (12.1-14.9) 05/25/25 10:48 INR 1.01 (0.8-1.2) 05/25/25 10:48 Sodium 137 mmol/L (136-145) 05/29/25 02:31 Potassium 3.7 mmol/L (3.5-5.1) 05/29/25 02:31 Chloride 100 mmol/L (98-107) 05/29/25 02:31 Carbon Dioxide 25 mmol/L (22-29) 05/29/25 02:31 Anion Gap 15.7 (5-19) 05/29/25 02:31 BUN 9 mg/dL (8-23) 05/29/25 02:31 Creatinine 0.5 mg/dL (0.7-1.2) L 05/29/25 02:31 GFR Calculation 166.9 mL/min (90-130) H 05/29/25 02:31 Glucose 220 mg/dL (65-115) H 05/29/25 02:31 POC Glucose 215 mg/dL (70-110) H 05/29/25 13:35 Calculated Osmolality 289 mOsm/kg (285-295) 05/29/25 02:31 Calcium 8.9 mg/dL (8.5-10.5) 05/29/25 02:31 Phosphorus 3.1 mg/dL (2.5-4.5) 05/23/25 01:40 Magnesium 1.9 mg/dL (1.7-2.3) 05/23/25 01:40 Total Bilirubin 0.7 mg/dL (0.15-1.2) 05/29/25 02:31 Direct Bilirubin 0.17 mg/dL (0.00-0.30) 05/24/25 05:26 AST 19 U/L (0-40) 05/29/25 02:31 ALT 23 U/L (0-41) 05/29/25 02:31 Alkaline Phosphatase 108 U/L (40-130) 05/29/25 02:31 Creatine Kinase 40 U/L (39-308) 05/22/25 18:52 C-Reactive Protein 58.8 mg/L (0.0-4.9) H 05/29/25 02:31 Total Protein 6.7 g/dL (6.6-8.7) 05/29/25 02:31 Albumin 3.1 g/dL (3.5-5.2) L 05/29/25 02:31 Globulin 3.6 g/dL (1.3-4.6) 05/29/25 02:31 Lipase 11 U/L (13-60) L 05/24/25 05:26 Procalcitonin 0.13 ng/mL (0-0.5) 05/26/25 05:00 Urine Color Yellow (Yellow) 05/28/25 12:30 Urine Appearance Turbid (CLEAR) A 05/28/25 12:30 Urine pH 8.0 (5-7) A 05/28/25 12:30 Ur Specific [place] 1.013 (1.005-1.030) 05/28/25 12:30 Urine Protein 1+ (Negative) A 05/28/25 12:30 Urine Glucose (UA) Trace (Normal) H 05/28/25 12:30 Urine Ketones Negative (Negative) 05/28/25 12:30 Urine Blood Negative (Negative) 05/28/25 12:30 Urine Nitrate Negative (Negative) 05/28/25 12:30 Urine Bilirubin Negative (Negative) 05/28/25 12:30 Urine Urobilinogen 2.0 mg/dL (Negative) H 05/28/25 12:30 Ur Leukocyte Esterase Trace (Negative) A 05/28/25 12:30 Urine RBC 3-5 /hpf (0-2) 05/28/25 12:30 Urine WBC 11-20 /hpf (0-5) H 05/28/25 12:30 Ur Squamous Epith Cells 0-5 /hpf (0-5) 05/28/25 12:30 Amorphous Sediment Not Reportable 05/28/25 12:30 Urine Bacteria None seen /hpf (NONE) 05/28/25 12:30 Hyaline Casts 0.81 /lpf 05/28/25 12:30 Vitals Last Vital Signs Temp 98.9 F 05/29/25 11:10 Pulse 80 05/29/25 11:10 Resp 16 05/29/25 11:10 BP 135/75 05/29/25 11:10 Pulse Ox 91 05/29/25 11:10 O2 Del Method Room Air 05/29/25 11:10 O2 Flow Rate 2 05/25/25 04:00 Discharge Plan Discharge Patient Disposition: Home Condition: Stable Prescriptions: New atorvastatin 40 mg Tablet 40 mg PO BEDTIME 30 Days Qty: 30 0RF amlodipine 5 mg Tablet 5 mg PO DAILY 30 Days Qty: 30 0RF polyethylene glycol 3350 17 gram Powder In Packet 17 g PO DAILY 30 Days Qty: 30 0RF tamsulosin 0.4 mg Capsule 0.4 mg PO DAILY 30 Days Qty: 30 0RF insulin aspart U-100 [Novolog FlexPen U-100 Insulin] 100 unit/mL (3 mL) insulin pen See Rx Instructions .ROUTE .COMPLEX Qty: 15 0RF Rx Instructions: Inject, subcut, 3 times daily, after meals based on low-dose sliding scale insulin glargine [Basaglar KwikPen U-100 Insulin] 100 unit/mL (3 mL) insulin pen 5 unit SUBCUT QAM 30 Days Qty: 15 0RF (DME) glucometer testing kit See Rx Instructions .Route .MEDSUPPLY Qty: 1 0RF Rx Instructions: check bs tid after meals lancets#100 strips#100 amoxicillin-pot clavulanate 875-125 mg tablet 1 tab PO BID 5 Days Qty: 10 0RF Continued glucagon HCl [Glucagon (HCl) Emergency Kit] 1 mg recon soln 1 mg IM Q20M PRN (Reason: hypoglycemia) Qty: 1 0RF Rx Instructions: until target blood sugar attained No Action (DME) glucometer testing kit See Rx Instructions .Route .MEDSUPPLY Qty: 1 0RF Rx Instructions: Lancets #100 Strips #100 Discharge Order = DC NOW: Discharge Order (Routine); Ordered 05/29/25 Ordered By: Bernard Hurd Referrals: Aashish Christine DO [Physician, Orthopedics] - 06/06/25 2:15 pm Ara Morton FNP [Primary Care Provider, Nurse Practitioner] - 05/29/25 11:15 am Discharge Diet: Cardiac Discharge Activity: Resume usual activity Patient Instructions: Amoxicillin/Clavulanate Potassium (By mouth) (Augmentin, Augmentin..., Amlodipine (By mouth) (Hypertenipine-2.5, Norvasc, Norliqva), Atorvastatin (By mouth) (Lipitor, Atorvaliq), Tamsulosin (By mouth) (Flomax), Insulin Aspart, Recombinant (By injection) (Novolog, Novolog..., Polyethylene Glycol 3350 (By mouth) (Miralax, Healthylax..., Acute Wound Care (DC), Hypertension (DC), Hip Fracture (ED), ORIF of Hip Fracture (DC), Opioid Safety, Post Anesthesia Care, Patient Portal & Simi Instructions Activity Restrictions/Additional Instructions: - Please follow-up with orthopedic service as outpatient You are being discharged from the hospital today during which time you have been under the care of Dr. Christine. You had a hip fracture. You were treated for this injury with hip hemiarthroplasty. You may resume you normal diet (including any special diets as directed by your primary doctor) as well as your home medications. You should follow up with you primary doctor if you have any questions regarding medication you took prior to your stay in the hospital. You may take your pain medication as prescribed. After the first few days, take your pain medication as needed. Do not drive or drink alcohol while taking your pain medication. Your injury may increase your risk of developing a blood clot,or DVT, in your arm or leg. This could potentially dislodge and travel to your lungs and become a life threatening condition called apulmonary embolus,or PE. You have been prescribed aspirin to be taken to prevent this. Frequent movement of the legs will will also help prevent this from occurring. If you develop any new or worsening cough, chestpain, bloody sputum or shortness of breath, call 911 or go to the EmergencyRoom. Always keep your surgical incision/dressing clean and dry. If you experience increasing pain at your incision site, redness, swelling, increasing discharge, foul odors, or fevers (greater than 100.4), night sweats or chills you should call the office at the above number. If you feel this is an emergency you should be evaluated in the Emergency Department of a nearby hospital. Orthopedic Patient Instructions Summary: Weight Bearing: As tolerated Activity: As tolerated. Diet: Regular. Wound Care: Keep dressing clean and dry. Anticoagulation: Aspirin currently on hold Pain Medication: Take only as needed. Ice, rest and elevation will be of great benefit. Please plan to follow-up gabino Lester [] in [] weeks. You will need to call the clinic [phone] to schedule this visit. Thank you far allowing me to participate in your care. Do not hesitate to call the office with any questions or concerns. -Please monitor your blood sugars closely -Monitor your blood sugars 3 times daily as after meals -Please record your blood sugars, and a blood sugar log -For your NovoLog -Please inject blood sugar after meals based on sliding scale provided -Do not inject insulin if you do not eat as hypoglycemia kills -This is a NovoLog sliding scale -Insulin sliding ?fingerstick? Insulin ?141-180?0 units/sq 181-220?2 units/sq ?221-260?4 units/sq ?261-300 6 units/sq ?301-350?8 units/sq ?351-400 10 units/sq ?401-450?12 units/sq >450? 14units/sq -If your blood sugar is greater than 500 go to the emergency room -If your blood sugar is less than 60 or at anytime you feel lightheaded or dizzy or diaphoretic or have chest palpitations check your blood sugar, and eat a hard candy or drink orange juice and go immediately to the emergency room -Remember hypoglycemia kills, so if his blood sugar is less than 60 we have to increase it by taking in a sugary meal such as a hard candy or orange juice and go to the emergency room -If you have any questions please call us where here to help Discharge Attestations Time Spent in Discharge Care*: greater than 30 min Quality Metrics Clinical Quality Measures [ No reported AMI, CVA or VTE this stay] Coding Level of Care Code 07384 Total time (in minutes) for Discharge: 45 Diagnoses Retroperitoneal air K66.8
--- NOTE | 2025-05-29 15:00 | PC.NURSE ---
Discharge instructions provided to patient and . Denies questions or needs. Awaiting meds to beds prior to exiting with and sister.
[2025-05-29 15:47] VITALS: BP 135/74; PULSE 78; RESP 18; O2SAT 91
== END 2025-05-29 15:15 | disposition home or self-care (01) | DRG 522 ==
LOC: ER 19:01 → MEDSURG 19:07
PROVIDERS: Internal Medicine; Orthopaedic Surgery; Admitting Provider Internal Medicine; Emergency Provider Family Medicine; PCP Nurse Practitioner; Visit Provider Family Medicine
PROC: 0SRR0JZ Replacement of Right Hip Joint, Femoral Surface with Synthetic Substitute, Open Approach (ICD-10-PCS; principal; 2025-05-23 12:00)
DX: S72.001A Fracture of unspecified part of neck of right femur, initial encounter for closed fracture (principal); I69.951 Hemiplegia and hemiparesis following unspecified cerebrovascular disease affecting right dominant side; W01.0XXA Fall on same level from slipping, tripping and stumbling without subsequent striking against object, initial encounter; S70.11XA Contusion of right thigh, initial encounter; E11.9 Type 2 diabetes mellitus without complications; I10 Essential (primary) hypertension; F17.210 Nicotine dependence, cigarettes, uncomplicated; Z79.4 Long term (current) use of insulin
CPT/HCPCS: 36415; 36416; 51702; 71045; 71250; 73501; 73502; 74176; 74177; 80048; 80053; 80076; 81001; 82550; 82962; 83690; 83735; 84100; 84145; 85014; 85018; 85025; 85610; 85651; 86140; 87040; 87086; 93005; 93970; 96372; 97110; 97116; 97162; 97167; 97530; 97535; 99285; C1776; J0690; J1100; J1644; J1815; J2270; J2405; J2543; J2704; J3010; J3490; J7030; J9999; P9045

== ENCOUNTER → 2025-06-06 09:52 | Outpatient (BNVA) | payer MEDICARE, SELFPAY | PROVIDERS: PCP Nurse Practitioner; Visit Provider Orthopaedic Surgery | DX: Z98.890 Other specified postprocedural states (principal) | CPT/HCPCS: 73502; 99024 ==

== ENCOUNTER → 2025-07-25 14:16 | Outpatient (BNVA) | payer MEDICARE, SELFPAY | PROVIDERS: PCP Nurse Practitioner; Visit Provider Orthopaedic Surgery | DX: Z98.890 Other specified postprocedural states (principal) | CPT/HCPCS: 73502; 99024 ==